=== PATIENT | female | born 1940 | race Caucasian/White ===

== ENCOUNTER → 2019-12-30 | Day surgery (SDC) | payer OTHER ==
--- NOTE | 2019-12-30 12:11 | RAD REPORT ---
EXAM DESCRIPTION: Ultrasound-guided vacuum assisted breast core biopsy CLINICAL HISTORY: Breast mass N63.0 COMPARISON: BREAST/AXILLA, LIMITED dated 10/31/2018 FINDINGS: Informed consent was obtained and time-out was performed. The patient's left breast was prepped and draped in the usual sterile fashion. 1% lidocaine was used for local anesthetic purposes. Utilizing aseptic technique and ultrasound guidance, a 12 gauge vacuum assisted core biopsy device wa s used to obtain 2 core specimens through the mass of interest. A post biopsy clip was then placed. All collected material was sent for cytology. Patient tolerated procedure well. IMPRESSION: Successful ultrasound guided vacuum assisted left breast mass biopsy.
--- OUTSIDE RECORDS SUMMARY | 2019-12-30 12:58 | XMS REPORT | Clinical Summary ---
:1940 Author Organization [facility] Address [address] [place] [address] Care Team Providers Name Role Phone Cooper Walter MD Primary Care Provider Allergies Active Allergy Reactions Severity Noted Date Comments Pioglitazone Hives 06/29/2016 Nitrofurantoin Macrocrystal Anaphylaxis High 06/29/2016 Prednisone Other (See Comments) 06/29/2016 Tramadol Swelling 06/29/2016 Medications Medication Sig Dispensed Refills Start End Date Status Date umeclidinium-dion Inhale. 0 Ac tive nterol 62.5-25 mcg/actuation blister with device atorvastatin Take 20 mg by 0 Act jono (LIPITOR) 20 MG mouth nightly. tablet INSULIN Inject under the 0 Act jono SUBCUTANEOUS skin PUMP, HUMALOG, continuously. 100 UNITS/ML INSULIN PUMP INFUSION (HumaLOG) lisinopril Take 2.5 mg by 0 Acti ve (PRINIVIL,ZESTRIL mouth daily. ) 2.5 mg tablet amLODIPine Take 5 mg by 0 Active (NORVASC) 5 mg mouth daily. tablet furosemide Take 40 mg by 0 Activ e (LASIX) 40 mg mouth daily. tablet allopurinol Take 100 mg by 0 Act jono (ZYLOPRIM) 100 MG mouth daily. tablet rivaroxaban Take 15 mg by 0 Acti ve (XARELTO) 15 mg mouth. tablet cholecalciferol, Take 2,000 Units 0 Active vitamin D3, by mouth daily. (VITAMIN D3) 2,000 unit capsule capsule MUCINEX 600 mg TAKE 1 TABLET BY 60 tablet 0 Active tablet extended MOUTH TWICE DAILY 8 release 12hr albuterol sulfate Inhale 180 mcg 1 each 3 Active (PROAIR every 4 (four) 8 RESPICLICK) 90 hours. mcg/actuation aerosol powdr breath activated alendronate TK 1 T PO ONCE A 0 A ctive (FOSAMAX) 70 MG WEEK. 9 tablet metoprolol TK 1 T PO D 3 Active succinate XL 9 (TOPROL-XL) 25 mg 24 hr tablet ipratropium-albut Take 3 mL by 60 mL 3 Active nevaeh (DUO-NEB) nebulization 4 9 0.5-2.5 mg/3 mL (four) times a nebulizer day. fluticasone USE 1 SPRAY IN 48 mL 1 Act jono propionate EACH NOSTRIL 9 (FLONASE) 50 TWICE DAILY mcg/actuation nasal spray ipratropium-albut Take 3 mL by 0 02/06/20 Discontinued nevaeh (DUO-NEB) nebulization 4 19 (Reorder) 0.5-2.5 mg/mL (four) times a nebulizer day. fluticasone 2 sprays by Each 0 02/06/20 D iscontinued (FLONASE) 50 Nare route daily. 19 (Reorder) mcg/actuation nasal spray fluticasone 1 spray (50 mcg 15.8 mL 1 02/06/20 Di scontinued propionate total) by Each 9 19 (Reo rder) (FLONASE) 50 Nare route 2 mcg/actuation (two) times a nasal spray day. guaiFENesin Take 10 mL (200 120 mL 0 06/20/20 Ex pired (ROBITUSSIN) 100 mg total) by 9 19 mg/5 mL syrup mouth 3 (three) times a day as needed for cough for up to 30 days. albuterol (ProAir Inhale 2 puffs 18 g 0 0 HFA) 90 every 6 (six) 0 20 mcg/actuation hours as needed inhaler for wheezing for up to 30 days. Active Problems Problem Noted Date Tobacco abuse 05/21/2019 Intermittent asthma 06/06/2017 COPD (chronic obstructive pulmonary disease) with acut e bronchitis 06/06/2017 SASCHA (obstructive sleep apnea) 06/06/2017 Dyspnea 06/06/2017 CHF (congestive heart failure) 02/12/2017 Diastolic congestive heart failure 02/12/2017 Essential hypertension 02/12/2017 Type 2 diabetes mellitus 02/12/2017 Gout 02/12/2017 Encounters Date Type Specialty Care Team Description 11/26/2019 Telemedicine Pulmonology Ashly Calhoun MD SASCHA (ob structive sleep apnea) (Primary Dx) 11/26/2019 Travel 05/21/2019 Office Visit Pulmonology Ashly Calhoun MD COPD (c hronic obstructive pulmonary disease) with acute bronchitis (HCC) (Primary Dx); Tobacco abuse 02/05/2019 Office Visit Pulmonology Ashly Calhoun MD SASCHA (ob structive sleep apnea) (Primary Dx); COPD (chronic o bstructive pulmonary disease) with acute bronchitis (HCC) 02/05/2019 Refill Pulmonology Ashly Calhoun MD after 12/29/2018 Family History Medical History Relation Name Comments Heart attack Father Prostate cancer Father Heart disease Mother Hypertension Mother Relation Name Status Comments Father Mother Social History Tobacco Use Types Packs/Day Years Used Date Former Smoker Smokeless Tobacco: Former User Alcohol Use Drinks/Week oz/Week Comments No Sex Assigned at Date Recorded Not on file Job Start Date Occupation Industry Not on file Not on file Not on file Travel History Travel Start Travel End No recent travel history available. Last Filed Vital Signs Vital Sign Reading Time Taken Comments Blood Pressure 128/74 05/21/2019 1:35 PM [employer] Pulse 55 05/21/2019 1:35 PM [employer] Temperature 36.6 C (97.8 F) 05/21/2019 1:35 PM [employer] Respiratory Rate 14 05/21/2019 1:35 PM [employer] Oxygen Saturation 98% 05/21/2019 1:35 PM [employer] Inhaled Oxygen Concentration - - Weight 123 kg (272 lb) 05/21/2019 1:35 PM [employer] Height 167.6 cm (5' 6") 02/05/2019 1:30 PM CDT Body Mass Index 43.9 02/05/2019 1:30 PM CDT Plan of Treatment Health Maintenance Due Date Last Done Comments DIABETIC RETINAL EYE EXAM 1940 DIABETIC FOOT EXAM 1950 URINE MICROALBUMIN 1952 SHINGLES VACCINES (#1) 1992 65+ PNEUMOCOCCAL VACCINE (1 of 2 - PCV13) 2007 INFLUENZA VACCINE 01/25/2020 Results Not on fileafter 12/29/2018 Insurance Payer Benefit Plan / Subscriber ID Effective Dates Phone Addre ss Type Group HUMANA MEDICARE HU[employer]NA MEDICARE xxxxxxxxx 2016-Present PPO PPO/PFFS/ERS MCR Advance Directives For more information, please contact: [phone] Type Date Recorded 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
--- OUTSIDE RECORDS SUMMARY | 2019-12-30 13:02 | XMS REPORT | Continuity of Care Document ---
:1940 Author Organization [employer] Care Team Providers Name Role Phone [employer] Unavailable Un available Problems Problem Status Onset Classification Date Comments Sourc e Date Reported SOB, WEAK Active Sugar 019 [place] Urinary tract 10/18/2017 Liu gar infection, site not 018 [place] specified AFIB/I48.2; HTN, DM Active 017 [facility] PROBABLE PE Active [address] Disorder of Active Problem 06/03/2019 Data Medi ricky refraction AND/OR 014 migrated Gr oup, accommodation from [facility] (disorder) [facility] on 11/22/14. [place],[facility], [facility] [place] Pseudophakia Active Problem 06/03/2019 Data Med ical (disorder) 014 migrated Group, from [facility] [place] on 11/22/14. [place],[facility] [place] Long-term drug Active Problem 06/03/2019 Data [facility] edical therapy (procedure) 012 migrated Group, from [facility] [place] on 11/22/14. [facility] [place] Diabetic Active Problem 06/03/2019 Data Medica l complication 011 migrated Group,[facility] (disorder) from [facility] [place] on 11/22/14. [place],[facility] [place] Acute exacerbation Resolved Problem 06/03/2019 Medical of chronic Group, obstructive airways [place] disease (disorder) edical [facility], [facility] [place] Atrial fibrillation Active Problem 06/03/2019 Medical (disorder) Group,[facility] [place] Acute renal failure Resolved Problem 06/03/2019 STAGE #3 Medical syndrome (disorder) Group,[facility], [facility] [place] Benign essential Active Problem 06/03/2019 Data Medical hypertension migrated Group,[facility] (disorder) from [facility] [place] on 11/22/14. [place],[facility], [facility] [place] Diabetes mellitus Resolved Problem 06/03/2019 [facility] Medical (disorder) Group,[facility], [facility] [place] Hyperlipidemia Active Problem 06/03/2019 Data [facility] edical (disorder) migrated Group, from [facility] [place] on 11/22/14. [place],[facility], [facility] [place] Asthma (disorder) Resolved Problem 06/03/2019 [facility] Medical Group,[facility], [facility] [place] Hypertensive Resolved Problem 06/03/2019 Med ical disorder, systemic Carla bullock, arterial (disorder) [facility], [facility] [place] Myocardial Resolved Problem 06/03/2019 TWO YEARS Medic al infarction AGO, TWO Group, (disorder) STENT [facility], [facility] [place] Morbid obesity Active Problem 06/03/2019 [facility] edical (disorder) Group, [place] Nuclear cataract Active Problem 06/03/2019 Medical (disorder) Group,[facility], [facility] [place] Coronary Active Problem 06/03/2019 Medica l arteriosclerosis Mike up, (disorder) Sugar Daniel d Diastolic heart Active Problem 06/03/2019 Medical failure (disorder) Carla bullock, [place] Patient encounter Active Problem 06/03/2019 [facility] Medical status (finding) Mike up CHRONIC ATRIAL Active FIBRILLATION [facility] Medications Medication Details Route Status Patient Ordering Order Source Instructions Provider Date rivaroxaban 15 MG 15 mg = 1 tab, Active 02/07/ Medical Oral Tablet PO, Daily, # 90 2019 Grou p [Xarelto] tab, 3 Refill(s), Pharmacy: [id number] levothyroxine 50 50 microgram = Active 01/21/ Sugar mcg (0.05 mg) 1 tab, PO, 2018 [facility] oral tablet Daily, 0 Refill(s) Lisinopril Notes: (Same Inactive 01/21/ [place] as: Prinivil, 2019 [facility] Zestril) Allopurinol Notes: (Same Inactive 01/21/ Sug ar as: Zyloprim) 2018 [facility] Insulin Glargine Notes: (Same Inactive 01/21/ M H Sugar 100 UNT/ML as: Lantus) Do 2019 Land Injectable not hold Solution [Lantus] insulin without contacting prescriber WASTE: F/P - Black; E - Municipal Trash Bin "single patient use only" Stable for 28 days at room temperature Expires in days from D ate Insulin Lispro Notes: (Same Inactive Sugar as: Humalog) 2019 Land Roll in palms of hands gently; Do not shake vigorously. WASTE: F/P - Black; E - Municipal Trash Bin Stable for 28 days at room temperature. Expires in days from D ate Dextrose 50% 25 gm, 50 mL, Inactive S ugar Syringe Route: IVP, 2019 [place] Drug Form: INJ, Dosing Weight 125.455, kg, PRN, PRN Blood Glucose Results, Start date: 01/21/19 0:30:00 CDT, 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 day, Stop date: 02/20/19 0:29:00 CDT, 0 Glucagon 1 mg, Route: Inactive Sugar IM, Drug form: 2019 Land PDR/INJ, PRN, Dosing Weight 125.455, kg, PRN Blood Glucose Results, Start date: 01/21/19 0:30:00 CDT, 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 day, Stop date: 02/20/19 0:29:00 CDT, 0 Insulin Lispro Notes: (Same Inactive Sugar as: Humalog) 2019 [place] Roll in palms of hands gently; Do not shake vigorously. WASTE: F/P - Black; E - Municipal Trash Bin Stable for 28 days at room temperature. Expires in days from D ate atorvastatin Notes: (Same No Longer S ugar As: Lipitor) Active 2019 [place] Xarelto Notes: (Same No Longer Sugar as: Xarelto) Active 2019 [place] Administer with food Amlodipine Notes: (Same No Longer Sug ar as: Norvasc) Active 2019 [place] Aspirin Notes: Take No Longer [place] with food. Active 2019 [place] Saline Flush 0.9% Notes: (Same No Longer Sugar as: BD Active 2018 [place] Posiflush) Protonix Notes: Tablet No Longer [place] should not be Active 2018 [place] chewed or crushed. (Same as: Protonix) Ipratropium Notes: SEE RT No Longer S ugar Irvona 0.2 MG/ML DOCUMENTATION Active 2018 [place] Inhalant Solution (Same as:Atrovent) Synthroid Notes: Take 1 No Longer Sug ar hour before or Active 2018 Land 2 hours after meal; Enteral feeds may interefere with the absorption of this medication.(Fracisco e as:Levothroid, Synthroid) normal saline 500 mL, Rate: Inactive Sugar 0.9% IV 500 mL 50 ml/hr, 2018 [place] Infuse over: 10 hr, Route: IV, Dosing Weight 125.455 kg, Total Volume: 500, Start date: 01/20/19 5:12:00 CDT, Duration: 1 doses or times, Stop date: 01/20/19 15:11:00 CDT, 2.46, m2, 0 Nicotine Notes: (Same No Longer Sugar as: Habitrol) Active 2018 Land "Remove old patch before application of new patch" WASTE: F/P - P Waste Black; E - P Waste Black Tylenol Notes: Do not No Longer Sugar exceed 4 Active 2018 [place] gm/day. (Same as: Tylenol) Aspirin 81 mg, PO, Active Sugar Daily, 0 2018 Land Refill(s) allopurinol 100 100 mg = 1 tab, Active Sugar mg oral tablet PO, Daily, 0 2018 [place] Refill(s) Levothyroxine 50 microgram = Active Sugar Sodium 0.05 MG 1 tab, PO, 2019 [place] Oral Tablet Daily, 0 [Synthroid] Refill(s) Ventolin HFA 90 2 puff, Active Sugar mcg/inh INHALATION, 2018 [place] inhalation PRN, 0 aerosol with Refill(s) adapter Anoro Ellipta 1 puff, Active Sugar 62.5 mcg-25 mcg INHALER, Daily, 2018 [place] inhalation powder # 1 ea, 3 Refill(s) Insulin Lispro Notes: (Same Inactive Sugar as: Humalog) 2019 [place] Roll in palms of hands gently; Do not shake vigorously. WASTE: F/P - Black; E - Municipal Trash Bin Stable for 28 days at room temperature. Expires in days from D ate Dextrose 50% 25 gm, 50 mL, No Longer [place] Syringe Route: IVP, Active 2018 [facility] Drug Form: INJ, Dosing Weight 124.8, kg, PRN, PRN Blood Glucose Results, Start date: 01/20/19 2:30:00 CDT, 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 day, Stop date: 02/19/19 2:29:00 CDT, 0 Glucagon 1 mg, Route: No Longer Sugar IM, Drug form: Active 2018 [place] PDR/INJ, PRN, Dosing Weight 124.8, kg, PRN Blood Glucose Results, Start date: 01/20/19 2:30:00 CDT, 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 day, Stop date: 02/19/19 2:29:00 CDT, 0 Saline Flush 0.9% Notes: (Same No Longer [place] as: BD Active 2018 [place] Posiflush) Nitroglycerin Notes: (Same No Longer Sugar as:Nitroquick, Active 2018 [place] Nitrostat) "Do Not Crush" Sublingual tablet Aspirin 325 MG Notes: Take Inactive S ugar Oral Tablet with food. 2018 [facility] rivaroxaban 15 MG 15 mg = 1 tab, Active Medical Oral Tablet PO, QPM, # 90 2019 Group [Xarelto] tab, 3 Refill(s), [facility] [id number] lisinopril 5 mg 5 mg = 1 tab, Active Medical oral tablet PO, Daily, # 90 2019 Grou p tab, 3 Refill(s), [facility]: [facility] [id number] atorvastatin 20 20 mg = 1 tab, Active 11/23/ H Medical mg oral tablet PO, QPM, # 90 2019 Mike up tab, 3 Refill(s), [facility] [id number] amLODIPine 5 mg 5 mg = 1 tab, Active Medical oral tablet PO, Daily, # 90 2019 Grou p tab, 3 Refill(s), Pharmacy: [facility] [id number] rivaroxaban 15 MG 15 mg = 1 tab, Inactive Medical Oral Tablet PO, QPM, 0 2019 Group [Xarelto] Refill(s) lisinopril 5 mg 5 mg = 1 tab, Inactive 11/23/ M H Medical oral tablet PO, Daily, # 90 2019 Grou p tab, 3 Refill(s) metoprolol 25 mg 25 mg = 1 tab, Active Medical oral tablet, PO, Daily, # 90 2019 Mike up extended release tab, 3 Refill(s), Pharmacy: [facility] [id number] Alendronic acid 70 mg = 1 tab, Active 11/23/ H Medical 70 MG Oral Tablet PO, 0 Refill(s) 2019 Group Phenazopyridine 100 mg = 1 tab, No Longer Sugar hydrochloride 100 PO, TID, PRN Active 2018 L and MG Oral Tablet Dysuria, X 2 [Pyridium] day, # 6 tab, 0 Refill(s) Cephalexin 500 MG 500 mg = 1 cap, Active Sugar Oral Capsule PO, QID, X 10 2018 Land [Keflex] day, # 40 cap, 0 Refill(s) Acetaminophen 325 1 tab, Route: Inactive Sugar MG / Hydrocodone PO, Drug Form: 2018 Land Bitartrate 5 MG TAB, Dosing Oral Tablet Weight 124.091, [Hyndman 5/325] kg, ONCE, STAT, Start date: 10/15/17 9:13:00 CDT, Stop date: 10/15/17 9:13:00 CDT Pyridium Notes: Give Inactive Sugar with meals. 2018 Land (Same as: Pyridium) Furosemide 40 MG 40 mg = 1 tab, Active Medical Oral Tablet PO, BID, # 180 2018 Group tab, 3 Refill(s), Pharmacy: [facility] [id number] Levothyroxine 25 microgram = Active Medical Sodium 0.025 MG 1 tab, PO, 2017 Group Oral Tablet Daily, # 90 [Synthroid] tab, 3 Refill(s), Pharmacy: [facility] [id number] Levothyroxine 25 microgram = Inactive Medical Sodium 0.025 MG 1 tab, PO, 2017 Group Oral Tablet Daily, 0 [Synthroid] Refill(s) Ipratropium 500 microgram = Active edical Irvona 0.2 MG/ML 2.5 mL, NEB, 2017 G roup Inhalant Solution QID, 0 Refill(s) metoprolol 50 mg = 1 tab, Inactive Me dical tartrate 50 mg PO, BID, 0 2016 Group oral tablet Refill(s) amLODIPine 5 mg 5 mg = 1 tab, Active Medical oral tablet PO, Daily, 0 2016 Group Refill(s) lisinopril 2.5 mg 2.5 mg = 1 tab, Active Medical oral tablet PO, Daily, 0 2016 Group Refill(s) fluticasone INHALATION, Active Medic al furoate Q24H, 0 2016 Group Refill(s) 24 HR Metoprolol Notes: (Same No Longer Tartrate 25 MG as: Toprol XL) Active 2016 [facility] Extended Release Do Not Crush Tablet [Toprol] Magnesium Oxide Notes: (Same No Longer H as: Mag-Ox 400) Active 2016 [facility] Magnesium oxide [id number] elemental magnesium Dose=____mg magnesium oxide (___mg elemental magnesium) Humalog Route: SUB-Q, No Longer Daily, Dosing Active 2016 [facility] Weight 117.841, kg, Start date: 09/16/16 9:00:00 CDT, 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 day, Stop date: 10/15/16 9:00:00 CDT Vitamin D3 2000 Notes: Same as No Longer intl units oral : Vitamin D3 Active 2016 [place] [facility] tablet Amiodarone Notes: (Same No Longer as: Cordarone) Active 2016 [facility] Allopurinol Notes: (Same No Longer as: Zyloprim) Active 2016 [facility] Xarelto Notes: (Same Inactive as: Xarelto) 2016 [facility] Administer with food Furosemide 40 MG Notes: (Same Inactive H Oral Tablet as: Lasix) October 2016 [place] cause GI upset. Give with food or milk. atorvastatin Notes: (Same Inactive As: Lipitor) 2016 [facility] AMIODarone 300 mg 300 mg, PO, Active oral tablet Daily, [address] [facility] Refill(s) AMIODarone 200 mg 200 mg = 1 tab, Inactive 09/15 oral tablet PO, BID 2016 [facility] Furosemide 40 MG 40 mg = 1 tab, Active Oral Tablet PO, BID 2016 [facility] magnesium oxide 500 mg = 1 tab, Active 500 mg oral PO, Daily 2016 [facility] tablet metoprolol 25 mg 25 mg = 1 tab, Active oral tablet, PO, Daily 2016 [facility] extended release Humalog 102UNITS, Active SUB-Q, Daily, 2016 [facility] INSULIN PUMP DORINA-FLOW SPRAY DORINA-FLOW SPRAY, Active 1 spray, NASAL, 2016 [facility] t Daily atorvastatin 20 20 mg = 1 tab, Active H mg oral tablet PO, QPM 2016 [facility] allopurinol 300 300 mg = 1 tab, Active mg oral tablet PO, Daily 2016 [facility] Probiotic Formula 1 cap, PO, Inactive oral capsule Daily, [address] [facility] Refill(s) Vitamin D3 2000 2,000 IntlUnit Active H intl units oral = 1 tab, PO, 2016 [place] [facility] tablet Daily [place]-3 oral 1 tab, PO, BID Active capsule 2016 [facility] Benadryl Notes: (Same Inactive as: Benadryl) 2016 [facility] Valium Notes: (Same Inactive as: Valium) 2016 [facility] sodium chloride 1,000 mL, Rate: Inactive 0.45% 1000 ml INJ 100 ml/hr, 2016 [place] 1,000 mL Infuse over: 10 hr, Route: IV, Dosing Weight 123.409 kg, Total Volume: 1,000, Start date: 09/15/16 7:23:00 CDT, 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 day, Stop date: 10/15/16 7:22:00 CDT Lasix 40 mg, Route: No Longer [place] IV, Daily, Active 2016 Medical Dosing Weight Center 123.409, kg, Start date: 05/24/16 9:00:00 ANIMAL TECH, 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 day, Stop date: 06/22/16 9:00:00 ANIMAL TECH albuterol Notes: Inactive [employer] Albuterol 90 2016 Medical microgram/inh Center 8gm HFA WASTE: Aerosol - Return to Pharmacy Same as: Ventolin, Proventil 200 ACTUAT Notes: Inactive [employer] Albuterol 0.09 Albuterol 90 2016 Medi ricky MG/ACTUAT Metered microgram/inh Center Dose Inhaler 8gm HFA WASTE: [ProAir HFA] Aerosol - Return to Pharmacy Same as: Ventolin, Proventil 200 ACTUAT 2 puff, Active [employer] Albuterol 0.09 INHALER, Q6H, 2016 Med ical MG/ACTUAT Metered PRN for Center Dose Inhaler wheezing, # 18 [ProAir HFA] gm, 0 Refill(s) Furosemide 40 MG 40 mg = 1 tab, Active [employer] Oral Tablet PO, Daily, # 30 2016 Medi ricky [Lasix] tab, 0 Center Refill(s) rivaroxaban 20 MG 20 mg = 1 tab, Active [employer] Oral Tablet PO, QPM, # 30 2016 Medica l [Xarelto] tab, 0 Center Refill(s) Lasix Notes: (Same Inactive [employer] as: Lasix) 2016 Medical MEDICATION Center WASTE Product Size: 40 mg Product Wasted: ___ mg Lisinopril Notes: (Same Inactive [facility] as: Prinivil, 2016 [facility] Zestril) Center Plavix Notes: (Same Inactive 05/23[facility] As: Plavix) 2016 Medical [place] Aspirin Notes: Do not Inactive [employer] crush or chew. 2016 Medical (Same As: [place] Ecotrin) metoprolol Notes: (Same Inactive [facility] extended release as: Toprol XL) 2016 [facility] May split tab, Center but do not crush. atorvastatin Notes: Same as No Longer [employer] Lipitor Active 2016 [facility] Hydralazine Notes: (Same No Longer [facility] [place] as: Apresoline) Active 2016 Medical Push over 5 Center minutes potassium Notes: (Same Inactive [place] phosphate-sodium as: Phos-NaK) 2015 edical phosphate 250 Each 1.5 gm pkt Ce nter mg-280 mg-160 mg has 250mg oral powder for phosphorous. reconstitution Mix w/2.5oz water and stir. heparin sodium, Notes: porcine No Longer [place] porcine 2500 heparin Active 2015 Medical UNT/ML Injectable Center Solution Insulin, Aspart, Notes: Roll in No Longer [place] Human palms of hands Active 2016 Medical gently; Do not Center shake vigorously. (Same as: NovoLOG) "single patient use only" WASTE: F/P - Black; E - Municipal Trash Bin Stable for 28 days at room temperature. Expires in days from D ate Dextrose 50% 25 gm, 50 mL, No Longer [place] Syringe Route: IVP, Active 2015 Medical Drug Form: INJ, Center Dosing Weight 123.409, kg, PRN, PRN Blood Glucose Results, Start date: 05/22/16 15:45:00 ANIMAL TECH, 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 day, Stop date: 06/21/16 15:44:00 ANIMAL TECH Glucagon 1 mg, Route: No Longer [place] IM, Drug form: Active 2015 Medical PDR/INJ, PRN, Center Dosing Weight 123.409, kg, PRN Blood Glucose Results, Start date: 05/22/16 15:45:00 ANIMAL TECH, 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 day, Stop date: 06/21/16 15:44:00 ANIMAL TECH Albuterol 0.833 Notes: (Same No Longer [place] MG/ML / as: Duoneb) Active 2015 Medical Ipratropium [place] Irvona 0.167 MG/ML Inhalant Solution [DuoNeb] Insulin Pen Novolog No Longer [place] Active 2015 Medical Misc/Other Center Metformin 500 mg = 1 tab, Active [place] as hydrochloride 500 PO, Daily 2016 Medi ricky MG Oral Tablet Center metoprolol 50 mg 50 mg = 1 tab, Active [place] oral tablet, PO, Daily 2016 Medical extended release Center Aspirin 81 MG 81 mg = 1 tab, No Longer [place] Chewable Tablet PO, Daily Active [facility] allopurinol 100 100 mg = 1 tab, Active [place] mg oral tablet PO, Daily 2015 [facility] MAGNESIUM 400, PO, Daily Active [facility] [place] [facility] GLUCONATE 2015 [facility] non-formulary PO, Daily, Active [place] OMEGA [address]- [address] [place] [address] [id number] [place] OIL (OMEGA-3 FISH OIL) 1000 MG (120 -180 MG)CAP, Refill(s) 0 lisinopril 5 mg 5 mg = 1 tab, Active [place] oral tablet PO, Daily 2015 [facility] Furosemide 20 MG 20 mg = 1 tab, No Longer [place] Oral Tablet PO, Daily Active [address] [place] [address] cholecalciferol 2,000 IntlUnit Active [place] 2000 intl units = 1 cap, PO, 2015 Med ical oral capsule Daily Center atorvastatin 20 20 mg = 1 tab, Active [facility] mg oral tablet PO, Daily 2015 [facility] Colchicine 0.6 MG 0.6 mg = 1 cap, Active [place] Oral Capsule PO, Daily 2015 [facility] Allergies, Adverse Reactions, Alerts Substance Category Reaction Severity Reaction Status Date Comments S ource type Reported pioglitazone Assertion Drug Active Data MH <sup>2</sup> allergy 2 migrated Me dical from [facility] on 10/23/14. Originally documented as ACTOS. Hives pioglitazone Assertion Drug Active Data MH <sup>1</sup> allergy 2 migrated [place] [facility] 10/[facility]14. Originally documented as ACTOS. Hives predniSONE<s Assertion Drug Active Data up>1</sup> allergy 4 migrated Medi ricky from [facility] on 10/23/14. Originally documented as PREDNISONE. predniSONE<s Assertion Drug Active Data up>2</sup> allergy 4 migrated [place] [facility] on 10/23/14. Originally documented as PREDNISONE. predniSONE<s Assertion Drug Active Data [place] up>3</sup> allergy 4 migrated Medi ricky from [facility] on 10/23/14. Originally documented as PREDNISONE. Macrodantin Assertion Drug Active allergy Medical Group traMADol<sup Assertion Drug Active Data M H >3</sup> allergy migrated Medica l from [facility] on 10/23/14. Originally documented as TRAMADOL. nitrofuranto Assertion Drug Active Data M H [place] in<sup>1</liu allergy migrated Me dical p> from [facility] on 10/23/14. Originally documented as MACRODANTIN . traMADol<sup Assertion Drug Active Data M H [place] >4</sup> allergy migrated Medica l from [facility] on 10/23/14. Originally documented as TRAMADOL. Immunizations Immunization Date Given Site Status Last Comments Source Updated Hx influenza 03/26/2012 completed [facility] Result Med ical vaccine-unspecifi Comment: Moo manley, ed<sup>1</sup> 03-26-12. [place] Migrated from Medica l OBS ; Data Center, migrated from [facility] [place] on 07/28/2015. Land Hx pneumococcal 05/22/2001 completed [facility] Result Medical vaccine<sup>2</liu Comment: Moo manley, p> historical. [place] Migrated from Medica l OBS ; Data Center, migrated from [facility], [facility] [place] on 07/28/2015. [place] pneumococcal 02/19/2001 completed GE Result Med ical 23-valent Comment: Group, vaccine<sup>3</liu given. [place] p> Migrated from Medica l OBS ; Data Center, migrated from [facility], [facility] [place] on 07/28/2015. [facility] Results Order Name Results Value Reference Date Interpretation Comments Leila rce Range ELECTROLYT eGFR 20 01/21 Result Sugar Comment: The [facility] eGFR is calculated using the CKD-EPI formula. In most young, healthy individuals the eGFR will be >90 mL/min/1.73m2 . The eGFR declines with age. An eGFR of 60-89 may be normal in some populations, particularly the elderly, for whom the CKD-EPI formula has not been extensively validated. Use of the eGFR is not recommended in the following populations:< br/>
Breann viduals with unstable creatinine concentration s, including patients and those with serious co-morbid conditions.<b r/>
Patie nts with extremes in muscle mass or diet.

The data above are obtained from the National Kidney Disease Education Program (NKDEP) which additionally recommends that when the eGFR is used in patients with extremes of body mass index for purposes of drug dosing, the eGFR should be multiplied by the estimated BMI. HEMATOLOGY MCV 96.8 80.0 - 01/21 Sugar 98.0 Land HEMATOLOGY Hct 38.0 36.0 - 01/21 Sugar 48.0 [facility] HEMATOLOGY Hgb 12.4 12.0 - 01/21 Sugar 16.0 [facility] HEMATOLOGY MPV 8.9 7.4 - 10.4 01/21 [facility] HEMATOLOGY Platelet 211 133 - 450 01/21 [facility] HEMATOLOGY RDW 14.5 11.5 - 01/21 Sugar 14.5 [facility] HEMATOLOGY RBC 3.93 4.20 - 01/21 Sugar 5.40 [facility] HEMATOLOGY WBC 7.7 3.7 - 10.4 01/21 [facility] HEMATOLOGY MCHC 32.5 32.0 - 01/21 Sugar 36.0 [facility] HEMATOLOGY MCH 31.4 27.0 - 01/21 Sugar 31.0 Land HEMATOLOGY Basophils # 0.1 0.0 - 0.2 01/21 MH [place] Land HEMATOLOGY Eosinophils 0.3 0.0 - 0.5 01/21 [place] # /2018 Land HEMATOLOGY Monocytes # 0.4 0.0 - 0.8 01/21 [place] Land HEMATOLOGY Lymphocytes 1.7 1.0 - 5.5 01/21 [place] # /2018 Land HEMATOLOGY Basophils 0.8 0.0 - 1.0 01/21 MH Land HEMATOLOGY Neutrophils 5.2 1.5 - 8.1 01/21 [place] # /2018 Land HEMATOLOGY Eosinophils 4.3 0.0 - 4.0 01/21 [place] Land HEMATOLOGY Segs 67.6 45.0 - 01/21 Sugar 75.0 Land HEMATOLOGY Monocytes 5.6 2.0 - 12.0 01/21 Sugar Land HEMATOLOGY Lymphocytes 21.7 20.0 - 01/21 Sugar 40.0 /2018 Land ELECTROLYT Chloride Lvl 105 95 - 109 01/21 [place] Land ELECTROLYT CO2 22 24 - 32 01/21 Sugar ES Land ELECTROLYT AGAP 11.0 10.0 - 01/21 Sugar ES 20.0 /2018 Land ELECTROLYT Calcium Lvl 8.8 8.5 - 10.5 01/21 Sug ar Land ELECTROLYT Glucose Lvl 437 70 - 99 01/21 Result Sugar ES Comment: [facility] Critical Result(s) called to Sharon Soriano RN at 01/21/2019 11:39 by FN. Read back OK. ELECTROLYT Creatinine 2.32 0.50 - 01/21 Sugar ES Lvl 1.40 Land ELECTROLYT BUN 63 7 - 22 01/21 Sugar [place] ELECTROLYT Potassium 5.0 3.5 - 5.1 01/21 Sugar ES Lvl /2018 Land ELECTROLYT Sodium Lvl 133 135 - 145 01/21 Sugar ES Land URINE AND UA <=1.0 0.1 - 1.0 01/20 Sugar STOOL Urobilinogen mg/dL Land URINE AND UA Bacteria Occasional None Seen 01/20 Liu gar STOOL /HPF /HPF /2018 Land URINE AND UA Mucus Few /LPF None Seen 01/20 [place] /LPF /2018 [place] URINE AND UA Color Light Yellow Yellow 01/20 [place] *NA* /2018 [facility] (01/20/19 5:14 PM) URINE AND UA Spec Grav 1.012 <=1.030 01/20 [place] URINE AND UA pH 5.0 5.0 - 8.0 01/20 [place] URINE AND UA Turbidity Slight Clear 01/20 [place] *ABN* /2018 [facility] (01/20/19 5:14 PM) URINE AND UA Glucose 50 mg/dL Negative 01/20 [place] mg/dL /2018 [place] URINE AND UA Protein Negative Negative 01/20 [place] mg/dL mg/dL [place] URINE AND UA Ketones Negative Negative 01/20 [place] mg/dL mg/dL [place] URINE AND UA RBC 1 0 - 2 01/20 [place] URINE AND UA Blood Negative Negative 01/20 [place] (01/20/19 5:14 PM) /2018 [place] URINE AND UA Nitrite Negative Negative 01/20 [place] (01/20/19 5:14 PM) [place] URINE AND UA Leuk Est Negative Negative 01/20 [place] (01/20/19 5:14 PM) [place] URINE AND UA Sq Epi Few /LPF Few /LPF 01/20 [place] URINE AND UA WBC <1 0 - 5 01/20 [place] URINE AND UA Bili Negative Negative 01/20 [place] *NA* /2018 [place] (01/20/19 5:14 PM) CARDIAC Troponin-I <0.02 0.00 - 01/20 [place] ENZYMES 0.40 [place] CARDIAC Troponin-I <0.02 0.00 - 01/20 [place] 0.40 [place] LIPIDS VLDL 21 01/20 [place] LIPIDS Trig 103 <=149 01/20 [place] mg/dL [place] LIPIDS Chol 79 <=199 01/20 [place] mg/dL [place] LIPIDS HDL 40 >=61 mg/dL 01/20 [place] LIPIDS CHD Risk 1.98 3.90 - 01/20 [place] 5.80 /2018 [facility] LIPIDS LDL 18 <=99 mg/dL 01/20 [place] (Calculated) [place] CARDIAC Troponin-I <0.02 0.00 - 01/20 [place] ENZYMES 0.40 [facility] CARDIAC Total CK 77 12 - 191 01/20 [place] ENZ[place]ES [facility] CARDIAC CK MB 1.8 0.5 - 3.6 01/20 [place] ENZ[place]ES [facility] CARDIAC BNP 107 <=100 01/20 [place] ENZYMES pg/mL [facility] CARDIAC CK MB Index 2.3 0.0 - 2.5 01/20 [place] ENZ[place]ES [facility] CHEM PANEL eGFR 01/20 Comment: The [place] eGFR is calculated using the CKD-EPI formula. In most young, healthy individuals the eGFR will be >90 mL/min/1.73m2 . The eGFR declines with age. An eGFR of 60-89 may be normal in some populations, particularly the elderly, for whom the CKD-EPI formula has not been extensively validated. Use of the eGFR is not recommended in the following populations:< br/>
Breann viduals with unstable creatinine concentration s, including patients and those with serious co-morbid conditions.<b r/>
Patie nts with extremes in muscle mass or diet.

The data above are obtained from the National Kidney Disease Education Program (NKDEP) which additionally recommends that when the eGFR is used in patients with extremes of body mass index for purposes of drug dosing, the eGFR should be multiplied by the estimated BMI. CHEM PANEL CO2 22 24 - 32 01/20 [place] CHEM PANEL Albumin Lvl 3.9 3.5 - 5.0 01/20 [place] CHEM PANEL ALT 25 0 - 65 01/20 [place] CHEM PANEL Calcium Lvl 8.9 8.5 - 10.5 01/20 [place] CHEM PANEL Total 7.2 6.4 - 8.4 01/20 [place] CHEM PANEL Globulin 3.3 2.7 - 4.2 01/20 [place] CHEM PANEL A/G Ratio 1.2 0.7 - 1.6 01/20 [place] CHEM PANEL AST 21 0 - 37 01/20 [place] CHEM PANEL Alk Phos 137 39 - 136 01/20 [place] CHEM PANEL B/C Ratio 29 6 - 25 01/20 [place] CHEM PANEL Bili Total 0.3 0.2 - 1.3 01/20 [place] CHEM PANEL AGAP 12.1 10.0 - 01/20 [place] 20.0 [place] CHEM PANEL BUN 67 7 - 22 01/20 [place] CHEM PANEL Creatinine 2.34 0.50 - 01/20 [place] Lvl 1.40 /2018 [place] CHEM PANEL Chloride Lvl 109 95 - 109 01/20 [place] CHEM PANEL Sodium Lvl 139 135 - 145 01/20 [place] CHEM PANEL Potassium 4.1 3.5 - 5.1 01/20 [place] CHEM PANEL Glucose Lvl 189 70 - 99 01/20 [place] HEMATOLOGY PTT 38.0 22.9 - 01/20 [place] 35.8 /2018 [place] HEMATOLOGY INR 1.33 0.85 - 01/20 [place] 1.17 [place] HEMATOLOGY PT 16.2 12.0 - 01/20 [place] 14.7 [place] HEMATOLOGY D-Dimer 0.53 01/20 [place] /2018 [place] HEMATOLOGY MPV 8.6 7.4 - 10.4 01/20 [place] /2018 [place] HEMATOLOGY MCHC 32.9 32.0 - 01/20 [place] 36.0 /2018 [place] HEMATOLOGY RDW 14.7 11.5 - 01/20 [place] 14.5 /2018 [place] HEMATOLOGY RBC 3.79 4.20 - 01/20 [place] 5.40 /2018 [place] HEMATOLOGY WBC 10.9 3.7 - 10.4 01/20 [place] /2018 [place] HEMATOLOGY MCH 31.2 27.0 - 01/20 [place] 31.0 /2018 [place] HEMATOLOGY Hct 36.0 36.0 - 01/20 [place] 48.0 [place] HEMATOLOGY Platelet 228 133 - 450 01/20 [place] HEMATOLOGY Hgb 11.8 12.0 - 01/20 [place] 16.0 /2018 [place] HEMATOLOGY MCV 94.9 80.0 - 01/20 [place] 98.0 [place] HEMATOLOGY Eosinophils 0.4 0.0 - 0.5 01/20 [place] # /2018 [place] HEMATOLOGY Monocytes # 0.6 0.0 - 0.8 01/20 [place] /2018 [place] HEMATOLOGY Lymphocytes 2.4 1.0 - 5.5 01/20 [place] # /2018 [place] HEMATOLOGY Neutrophils 7.4 1.5 - 8.1 01/20 [place] # /2018 [place] HEMATOLOGY Lymphocytes 21.6 20.0 - 01/20 [place] 40.0 [place] HEMATOLOGY Segs 67.5 45.0 - 01/20 [place] 75.0 [place] HEMATOLOGY Basophils # 0.1 0.0 - 0.2 01/20 [place] /2019 [place] HEMATOLOGY Eosinophils 3.8 0.0 - 4.0 01/20 [place] /2018 [place] HEMATOLOGY Monocytes 5.9 2.0 - 12.0 01/20 [place] HEMATOLOGY Basophils 1.2 0.0 - 1.0 01/20 [place] URINE AND UA Leuk Est Large Negative 10/15 [place] *ABN* /2017 [place] (10/15/17 9:08 AM) URINE AND UA pH 5.0 5.0 - 8.0 10/15 [place] URINE AND UA WBC >182 0 - 5 10/15 [place] /2018 [place] URINE AND UA Sq Epi Occasional Few /LPF 10/15 [place] /LPF /2017 [place] URINE AND UA Bili Negative Negative 10/15 [place] *NA* [place] (10/15/17 9:08 AM) URINE AND UA Ketones Negative Negative 10/15 [place] mg/dL mg/dL [place] URINE AND UA Nitrite Negative Negative 10/15 [place] (10/15/17 9:08 AM) /2017 [place] URINE AND UA Blood Large Negative 10/15 [place] *ABN* /2017 [place] (10/15/17 9:08 AM) URINE AND UA Bacteria Moderate None Seen 10/15 [place] /HPF /HPF /2017 [place] URINE AND UA Mucus Few /LPF None Seen 10/15 [place] /LPF [place] URINE AND UA RBC 130 0 - 2 10/15 [place] URINE AND UA Color Light Yellow Yellow 10/15 [place] *NA* [facility] (10/15/17 9:08 AM) URINE AND UA Glucose Negative Negative 10/15 [place] mg/dL mg/dL [place] URINE AND UA Protein Negative Negative 10/15 [place] mg/dL mg/dL [place] URINE AND UA Turbidity Marked Clear 10/15 [place] *ABN* [facility] (10/15/17 9:08 AM) URINE AND UA Spec Grav 1.005 <=1.030 10/15 [place] URINE AND UA <=1.0 0.1 - 1.0 10/15 [place] Urobilinogen mg/dL [facility] CHEM PANEL eGFR 27 09/15 Result Comment: The [facility] eGFR is calculated using the CKD-EPI formula. In most young, healthy individuals the eGFR will be >90 mL/min/1.73m2 . The eGFR declines with age. An eGFR of 60-89 may be normal in some populations, particularly the elderly, for whom the CKD-EPI formula has not been extensively validated. Use of the eGFR is not recommended in the following populations:< br/>
Breann viduals with unstable creatinine concentration s, including patients and those with serious co-morbid conditions.<b r/>
Patie nts with extremes in muscle mass or diet.

The data above are obtained from the National Kidney Disease Education Program (NKDEP) which additionally recommends that when the eGFR is used in patients with extremes of body mass index for purposes of drug dosing, the eGFR should be multiplied by the estimated BMI. CHEM PANEL POC Ion Ca 1.15 1.05 - 09/[address] [facility] CHEM PANEL POC 12.9 12.0 - 09/[address] [facility] CHEM PANEL POC 38.0 36.0 - 09/[address] [facility] CHEM PANEL POC AGAP 17.0 10.0 - 09/[address] [facility] CHEM PANEL POC 1.8 0.5 - 1.4 09/[address] [facility] CHEM PANEL POC BUN 40 7 - 22 09/15 [facility] CHEM PANEL POC Glucose 215 70 - 99 09/15 [facility] CHEM PANEL POC 3.7 3.5 - 5.1 09/[address] [facility] CHEM PANEL POC Chloride 102 95 - 109 09/15 [facility] CHEM PANEL POC Carbon 26 24 - 32 09/[address] [facility] CHEM PANEL POC Sodium 140 135 - 145 09/15 [facility] CARDIAC Troponin-T <0.010 0.000 - 05/23 [employer] ENZYMES 0.100 [facility] SPECIAL Hgb A1C 7.9 <=5.6 % 05/23 [employer] CHEMISTRY /2015 [facility] CHEM PANEL Magnesium 2.3 1.8 - 2.4 05/22 [employer] Lvl /2015 [facility] CHEM PANEL Phosphorus 2.2 2.5 - 4.5 05/22 [facility] ELECTROLYT AGAP 11.9 10.0 - 05/22 [place] ES 20.0 [facility] ELECTROLYT Creatinine 1.34 0.50 - 05/22 [place] ES Lvl 1.40 /2015 [facility] ELECTROLYT Sodium Lvl 144 135 - 145 05/22 [employer] ES [facility] ELECTROLYT Glucose Lvl 132 70 - 99 05/22 [employer] ES /2015 [facility] ELECTROLYT BUN 22 7 - 22 05/22 [employer] ES /2015 [facility] ELECTROLYT CO2 26 24 - 32 05/22 [employer] ES [facility] ELECTROLYT Calcium Lvl 9.2 8.5 - 10.5 05/22 [place] [facility] ELECTROLYT Chloride Lvl 110 95 - 109 05[place] [facility] ELECTROLYT Potassium 3.9 3.5 - 5.1 05/22 [employer] ES Lvl /2015 [facility] ELECTROLYT eGFR 39 05/22 Result [employer] Comment: The [facility] eGFR is Center calculated using the CKD-EPI formula. In most young, healthy individuals the eGFR will be >90 mL/min/1.73m2 . The eGFR declines with age. An eGFR of 60-89 may be normal in some populations, particularly the elderly, for whom the CKD-EPI formula has not been extensively validated. Use of the eGFR is not recommended in the following populations:< br/>
Breann viduals with unstable creatinine concentration s, including patients and those with serious co-morbid conditions.<b r/>
Patie nts with extremes in muscle mass or diet.

The data above are obtained from the National Kidney Disease Education Program (NKDEP) which additionally recommends that when the eGFR is used in patients with extremes of body mass index for purposes of drug dosing, the eGFR should be multiplied by the estimated BMI. HEMATOLOGY Basophils 0.3 0.0 - 1.0 05/22 [facility] HEMATOLOGY Segs-Bands # 12.2 1.5 - 8.1 05/22 [facility] HEMATOLOGY Lymphocytes 0.5 1.0 - 5.5 05[place] [facility] HEMATOLOGY Monocytes # 0.1 0.0 - 0.8 05/22 [facility] HEMATOLOGY Segs 94.7 45.0 - 05/22 [place] 75.0 [facility] HEMATOLOGY Eosinophils 0.1 0.0 - 4.0 05/22 [facility] HEMATOLOGY Lymphocytes 4.2 20.0 - 05/22 [place] 40.0 [facility] HEMATOLOGY Monocytes 0.7 2.0 - 12.0 05/22 [facility] HEMATOLOGY PT 14.9 12.0 - 05/22 [place] 14.7 [facility] HEMATOLOGY INR 1.15 0.85 - 05/22 [place] 1.17 [facility] HEMATOLOGY PTT 34.4 22.9 - 05/22 [place] 35.8 [facility] HEMATOLOGY Platelet 237 133 - 450 05/22 [facility] HEMATOLOGY MPV 8.6 7.4 - 10.4 05/22 [facility] HEMATOLOGY RDW 14.4 11.5 - 05/22 [employer] 14.5 [facility] HEMATOLOGY MCHC 33.0 32.0 - 05/22 [employer] 36.0 [facility] HEMATOLOGY MCV 93.5 80.0 - 05/22 [employer] 98.0 /2015 [facility] HEMATOLOGY Hct 34.4 36.0 - 05/22 [employer] 48.0 /2015 [facility] HEMATOLOGY MCH 30.9 27.0 - 05/22 [employer] 31.0 /2015 [facility] HEMATOLOGY Hgb 11.4 12.0 - 05/22 [employer] 16.0 /2015 [facility] HEMATOLOGY RBC 3.68 4.20 - 05/22 [employer] 5.40 /2015 [facility] HEMATOLOGY WBC 12.9 3.7 - 10.4 05/22 [facility] Pathology Reports No Data Provided for This Section Diagnostic Reports Report Value Date Source Chest 1view DX Clinical History : , - chest pain 01/20/2019 [place] Exam : Portable AP view of the chest 01/20/2019 0 :07 CDT Comparisons : Portable AP view of the chest 04/27 Findings : The lungs are clear without focal consolidation or pleural effusion. The heart is normal in size. The mediastinal contours are normal in appearance. The thoracic spine is age appropriate. The shou lders are unremarkable. Limited evaluation of the upper abdomen demonstr ates no gross abnormalities. Impression: No acute cardiopulmonary disease (stable appeari ng chest). Lung EXAM: [place] Pulmonary Ventilation and Perfusion Alejandrina ging 05/22/2016 [employer] Medical ventilation/perfusio DATE: 05/22/2016 2:49 PM ANIMAL TECH Center n scan NM INDICATION: Dyspnea on exertion COMPARISON: Chest x-ray of same day TECHNIQUE: After inhalation of 22 mCi of Xe-133 gas, dynamic posterior images of the lungs were obtained. Subsequently, the patient was IV injected with 4.6 mCi of Tc-99m MAA and multiple static images of the lungs were obtained in different projecti ons. FINDINGS: There is symmetric normal ve ntilation to both lungs. There is no evidence of tracer retention to suggest air trapping. There is mild heterogeneous tracer distribution in both lungs. There are no segmental or subsegmental perfusion defects to suggest pulmonary embolism. IMPRESSION: Low probability for pulmonary embolism. Consultation Notes No Data Provided for This Section Discharge Summaries No Data Provided for This Section History and Physicals No Data Provided for This Section Vital Signs Vital Sign Value Date Comments Source Systolic (mm Hg) 146 05/31/2019 [facility] Diastolic (mm Hg) 70 05/31/2019 [facility] Heart Rate 60 05/31/2019 [facility] Height 167.64 cm 05/31/2019 [facility] Weight 125 05/31/2019 [facility] BMI Calculated 44.48 05/31/2019 [facility] Systolic (mm Hg) 144 01/21/2019 [place] Diastolic (mm Hg) 76 01/21/2019 [place] Temperature Oral (F) 97.5 F 01/21/2019 [place] Respitory Rate 18 01/21/2019 [place] Heart Rate 57 01/21/2019 [place] Systolic (mm Hg) 122 01/21/2019 [place] Diastolic (mm Hg) 78 01/21/2019 [place] and Respitory Rate 18 01/21/2019 [place] Heart Rate 60 01/21/2019 [place] Temperature Oral (F) 97.8 F 01/21/2019 [place] Systolic (mm Hg) 116 01/21/2019 [place] Diastolic (mm Hg) 54 01/21/2019 [place] and Respitory Rate 18 01/21/2019 [place] Heart Rate 53 01/21/2019 [place] Temperature Oral (F) 97.5 F 01/21/2019 [place] Weight 125.455 01/20/2019 [place] BMI Calculated 44.64 01/20/2019 [place] Height 167.64 cm 01/20/2019 [place] Weight 124.8 01/20/2019 [place] Weight 123.636 11/23/2018 [facility] BMI Calculated 43.99 11/23/2018 [facility] Height 167.64 cm 11/23/2018 [facility] Systolic (mm Hg) 150 11/23/[facility] Diastolic (mm Hg) 79 11/23/2018 [facility] Heart Rate 65 11/23/2018 [facility] Weight 123.182 09/05/2018 [facility] Height 167.64 cm 09/05/2018 [facility] BMI Calculated 43.83 09/05/2018 [facility] Systolic (mm Hg) 133 09/05/2018 [facility] Diastolic (mm Hg) 77 09/05/2018 [facility] Heart Rate 60 09/05/2018 [facility] Weight 123.182 11/17/2017 [facility] BMI Calculated 43.83 11/17/2017 [facility] Height 167.64 cm 11/17/2017 [facility] Heart Rate 66 11/17/2017 [facility] Systolic (mm Hg) 124 11/17/2017 [facility] Diastolic (mm Hg) 72 11/17/2017 [facility] Temperature Oral (F) 97.5 F 10/15/2017 [place] Respitory Rate 18 10/15/2017 [place] Heart Rate 63 10/15/2017 [place] Systolic (mm Hg) 130 10/15/2017 [place] Diastolic (mm Hg) 73 10/15/2017 [place] and BMI Calculated 44.16 10/15/2017 [place] Weight 124.091 10/15/2017 [place] Heart Rate 63 10/15/2017 [place] Respitory Rate 18 10/15/2017 [place] Systolic (mm Hg) 163 10/15/2017 [place] Diastolic (mm Hg) 64 10/15/2017 [place] Temperature Oral (F) 97.5 F 10/15/2017 [place] Height 167.64 cm 10/15/2017 [place] BMI Calculated 43.33 08/18/2017 [facility] Heart Rate 69 08/18/2017 [facility] Systolic (mm Hg) 155 08/18/2017 [facility] Diastolic (mm Hg) 80 08/18/2017 [facility] Weight 121.42 08/18/2017 [facility] Height 167.4 cm 08/18/2017 [facility] BMI Calculated 44.48 07/21/2017 [facility] Height 167.64 cm 07/21/2017 [facility] Weight 125 07/21/2017 [facility] Systolic (mm Hg) 130 07/21/2017 [facility] Diastolic (mm Hg) 70 07/21/2017 [facility] Heart Rate 52 07/21/2017 [facility] Weight 124.091 06/09/2017 [facility] BMI Calculated 44.16 06/09/2017 [facility] Height 167.64 cm 06/09/2017 [facility] Heart Rate 49 06/09/2017 [facility] Systolic (mm Hg) 148 06/09/2017 [facility] Diastolic (mm Hg) 72 06/09/2017 [facility] BMI Calculated 41.93 09/15/2016 [facility] Height 167.64 cm 09/15/2016 [facility] Weight 117.841 09/15/2016 [place] Systolic (mm Hg) 167 09/15/2016 [facility] Diastolic (mm Hg) 53 09/15/2016 [facility] Respitory Rate 17 09/15/2016 [facility] Heart Rate 57 09/15/2016 [facility] Systolic (mm Hg) 169 05/24/2016 [facility] dical Center Diastolic (mm Hg) 72 05/24/[facility] Resp[facility] Rate 18 05/24/2016 [facility] Heart Rate 50 05/24/2016 [facility] Temperature Oral (F) 97.2 F 05/24/2016 [facility] Center Systolic (mm Hg) 159 05/23/2016 [facility] dical Center Diastolic (mm Hg) 66 05/23/2016 [facility] Heart Rate 56 05/23/2016 [facility] Respitory Rate 18 05/23/2016 [facility] Temperature Oral (F) 97.8 F 05/23/2016 [facility] Center Respitory Rate 18 05/23/2016 [facility] Center Temperature Oral (F) 97.1 F 05/23/2016 [facility] Center Systolic (mm Hg) 139 05/23/2016 [facility] dical Center Diastolic (mm Hg) 92 05/23/2016 [facility] edical Center Heart Rate 64 05/23/2016 [facility] Weight 123.409 05/22/2016 [facility] BMI Calculated 43.91 05/22/2016 [facility]icky Center Height 167.64 cm 05/22/2016 [facility] [place] Encounters Location Location Encounter Encounter Reason Attending ADM ID Stat Source Details Type Number For Provider Date Date Visit Outpatient [id number] [facility] 12/03 [facility]AM /2016 [facility] Observation [id number] Moh[place] 05/22 05/24 [place] 2 Kwan /2015 [facility] Bedded [id number] [place] 09/15 09/15 [place] [facility] 0 [facility] /2016 [facility] Outpatient [id number] SARY 12/06 Activ e [facility] 1 [place] Outpatient [id number] FANCY GAP 06/09 Active [facility] 2 [place] Outpatient [id number] [place] 06/09 06/10 [facility] Cardiology 2 [facility] Medi ricky [facility] Outpatient [id number] ECHO VISIT 07/14 Acti ve [facility] [place] MG Ambulatory [id number] NURSE 07/14 07/14 [facility] Cardiology Pre-Reg 3 VISIT /2017 [facility] Outpatient [id number] ECHO VISIT 07/21 [facility] [place] Outpatient [id number] FANCY GAP 07/21 Active [facility] 5 [place] MG Outpatient [id number] NURSE 07/21 07/22 M H Cardiology 4 VISIT /2017 Medica l [facility] Outpatient [id number] [place] 07/21 07/22 Cardiology 5 Medi ricky [facility] Outpatient [id number] FANCY GAP 08/18 Active [facility] 6 [place] [facility] Outpatient [id number] [place] 08/18 08/19 Cardiology 6 Medi [facility]icky [facility] [id number] Rhett Eric 10/15 10/15 [facility] [place] Out[place] [id number] FANCY GAP 11/17 Active [facility] 7 [place] MG Outpatient [id number] [place] 11/17 11/18 Cardiology 7 Medi ricky [facility] Outpatient [id number] FANCY GAP 05/11 Active [facility] 8 [place] [facility] Ambulatory [id number] [place] 05/11 05/11 Cardiology Pre-Reg 8 Med ical [facility] Outpatient [id number] FANCY GAP 06/21 Active [facility] 9 [place] [facility] Ambulatory [id number] Aretha [place] 06/21 06/21 Cardiology Pre-Reg Medic al [facility] Group Outpatient [id number] FANCY GAP 09/05 Active [facility] 1 [place] [facility] Outpatient [id number] [place] 09/05 09/06 Cardiology 1 [facility] [place] [facility] Outpatient [id number] FANCY GAP 09/07 Active [facility] 0 [place] [facility] Ambulatory [id number] [place] 09/07 09/07 Cardiology Pre-Reg 0 [facility] Med ical [facility] Outpatient [id number] [place] 11/23 Active [facility] 2 [place] [facility] Outpatient [id number] [place] 11/23 11/24 Cardiology 2 Medi ricky [facility] Observation [id number] [place] 01/20 01/21 [place] 2 [place] [facility] Out[facility] [id number] [place] 05/31 Active [facility] 3 [place] [facility] Outpatient [id number] [place] 05/31 06/01 Cardiology 3 Medi ricky [facility] Outpatient [id number] [place] 09/26 Active [facility] 4 [place] Outpatient [id number] [facility] 01/16 Active [facility] 5 [place] Procedures Procedure Code Date Perfomer Comments Source Bladder operation [id number] [facility] ricky Group,[facility], [place] Cardioversion [id number] Medical Group,[facility], [place] Cataract surgery [id number] Medic al Group,[facility] [place], [place] Hysterectomy [id number] Medical Group,[facility] Knee [id number] bilateral in Medical arthroplasty<sup>1< 2006 and 2007 Gr oup, /sup> [facility], [place] Tonsillectomy [id number] Medical Group,[facility], [place] Breast biopsy and [id number] [facility] related procedures Group, [place] Miscellaneous [id number] heart stents x2 Med ical operations<sup>2</s Group , up> Michelle Gaines Skin [id number] skin removal. Medical operation<sup>3</liu Group , p> Michelle Gaines Assessment and Plan Assessment and Plan Date Source Extracted from:Title: Discharge Summary * 01/21/2019 Michelle Gaines Author: Franco Estrada DO Date: 01/21/19 Discharge Plan Discharge Summary Plan Discharge Status: stable. Discharge instructions given: to patient, to family member. Discharge disposition: discharge to home. Prescriptions: continue same medications. Diagnosis dyspnea exertion Atypical chest pain Essential hypertension Chronic atrial fibrillation on anticoagulation CKD stage IV Morbid obesity Sleep apnea Deconditioning CAD. Course Progressing as expected. Education and Follow-up Counseled: patient, regarding diagnosis, regarding treatment, regarding medications. Extracted from:Title: Clinical Document Author: Madisyn Powell MANAGER FINANCIAL REPORTING Date: 01/20/19 Paged by nurse with c/o patient having c ouple loose bowel movements with very strong smell. and Streaks of blood noted in the stool as well with no signs of hemorrhoids. Will check stool for C. difficile and occult blood. D/w Dr Tam. Extracted from:Title: Clinical Document Author: Madisyn Powell MANAGER FINANCIAL REPORTING Date: 01/20/19 History and Physical Code Status None Specified=FULL CODE Chief Compliant Shortness of breath on exertion HPI The patient is a 77-year-old female with medical history of CAD, HTN, A. fib, DM 2, COPD, HLD, and sleep apnea who presents to ED with complaint of shortness of breath onset for couple weeks. Patient r eports feeling tired, with mild generali zed weakness shortness of breath that has gotten worse to exertional dyspnea . Patient reports coming to ED because her "symptoms/sensations like last time she had heart attack". Patient denies c hest pain, diaphoresis, fever, diaphoresis, headache, change in bowel or bladder habit. ROS Constitutional Symptoms: no fever, no we ight loss, no weight gain, no fatigue, no malaise Eyes: no diplopia, no blurred vision, no redness, no discharge, no loss of vision Ears, Nose, Mouth, Throat: no dysphagia, no odynophagia, no otalgia, no deafness, no rhinorrhea Cardiovascular: no chest pain, + SOB, + WALKER, no orthopnea, no PND, exercise tolerated, no palpitations Respiratory: same as CVS, + mild cough9 resolved), no hemop tysis Gastrointestinal: no NVD, no BPR, no cornell k stool, no constipation, no abdominal pain Genitourinary: no dysuria, no frequency, no urgency, no nocturia, no incontinence Musculoskeletal: no arthralgia, no myalgia, no stiffness Integumentary: (skin and/or breast): no rash, no hives, no breast pain, no mass, no nipple dc Neurological: no weakness, no headache, no seizure, no dizziness, no tingling, no numbness Psychiatric: no anxiety, no depression, no insomnia Endocrine: no polyuria, no polydipsia, n o fatigue, no weight loss, no weight gain, no cold or heat intolerance, no palpitations Hematologic/Lymphatic: no bleeding, no b ruising, no edema, no lumps (axilla groin neck) Allergic/Immunologic: no rash, no allergies, no fever, + chi lls Problem List/PMHx Hypertension Diabetes Heart attack COPD exacerbation Asthma Acute renal failure Atrial fibrillation Procedure/PSHx Cataract surgery Hysterectomy Bladder operation Cataract surgery Tonsillectomy Knee arthroplasty Cardioversion Miscellaneous operations Breast biopsy and related procedures Skin operation Family Hx Father: Cancer, Prostate; Cancer, Skin; Heart disease; Parki nson disease Mother: CHF (congestive heart failure).. ; Osteoporosis - no treatment; Thyroid disease Brother: Diabetes. Sister: Breast cancer; Diabetes.; Heart disease Social Hx Alcohol Details: Never Tobacco Details: Use: Current every day smoker. Type: Cigarettes. Previous treatment: None. Ready to change: Yes. Household tobacco concerns: No. Tobacco smoke exposure: None. Did the Patient Smoke Cigare ttes Anytime During the Last 365 Days? Y es. Cessation Counseling Provided? Yes.; Comment(s): Quit since April 2016 ( smoked [employer] to [facility] ED) Substance Abuse Details: Use: None. Allergies Allergies: Macrodantin, traMADol, predniSONE, pioglitazone, NKDA Home Medications Home Medications (17) Active alendronate 70 mg oral tablet 70 mg = 1 tab, PO allopurinol 300 mg oral tablet 300 mg = 1 tab, PO, Daily AMIODarone 300 mg oral tablet 300 mg, PO, Daily amLODIPine 5 mg oral tablet 5 mg = 1 tab, PO, Daily atorvastatin 20 mg oral tablet 20 mg = 1 tab, PO, QPM fluticasone furoate , INHALATION, Q24H furosemide 40 mg oral tablet 40 mg = 1 tab, PO, BID Humalog 102UNITS, SUB-Q, Daily ipratropium 0.02% inhalation solution 500 microgram = 2.5 mL , NEB, QID lisinopril 5 mg oral tablet 5 mg = 1 tab, PO, Daily magnesium oxide 500 mg oral tablet 500 mg = 1 tab, PO, Daily metoprolol 25 mg oral tablet, extended release 25 mg = 1 tab , PO, Daily DORINA-FLOW SPRAY 1 spray, NASAL, Daily Lancaster-3 oral capsule 1 tab, PO, BID Synthroid 25 mcg (0.025 mg) oral tablet 25 microgram = 1 tab , PO, Daily Vitamin D3 2000 intl units oral tablet 2,000 IntlUnit = 1 ta b, PO, Daily Xarelto 15 mg oral tablet 15 mg = 1 tab, PO, QPM Physical Exam Vitals: Vitals Tmp(F) Pulse BP RR SpO2 FIO2 01/20 01:35 97.9 62 136/46 22 100 --- 01/19 23:43 97.7 58 146/54 24 99 --- 24 Hr Tmax: 97.9F (36.61c) at 01/20 01:3 5 Vital Signs are the last 5 in the past 48 hours. General Apperance: awake, alert, in no acute distress Head:Normocephalic atraumatic Eyes:Pupils equal/round/reactive to ligh t, no scleral icterus, extraocular movements intact, no erythema, no discharge, normal RR, alignment within normal limits Ears:Normal external shape, normal position Nose:Nares patent and no discharge Mouth:Moist mucous membranes, tongue nor mal, gingiva normal, palate normal, tonsils normal Neck:Supple, FROM, no thyromegaly, no masses, no cervical ly mphadenopathy Chest Wall:No retractions Lungs: Breath sounds diminished at the b ases bilaterally . No crackles no rales. Respiration even and unlabored. Heart: A. fib with controlled rate/bradycardia, no murmur Abdomen:soft, non-tender, non-distended, no HSM, and no mass Musculoskeletal:No obvious deformity. Moves all 4 extremitie s, gait not tested Lymph:No cervical, axillary or inguinal lymphadenopathy Extremities:Symmetric, no obvious defect , and no cyanosis/clubbi Trace edema. to BLE. 2+ pulses in DP/PT/radial bilaterally Neurologic:Alert/appropriate, normal str ength, normal tone, and CN II-XII grossly intact. Clear speech, aao x 3. Skin:No nevus no lesions no rash. No jaundice. Psych:Mood congruent affect, responds appropriately to quest ions. Pertinent Labs [facility]* A/G Ratio: 1.2 (01/20/19) AGAP: 12.1 mEq/L (01/20/19) Albumin Lvl: 3.9 g/dL (01/20/19) Alk Phos: 137 unit/L High (01/20/19) ALT: 25 unit/L (01/20/19) AST: 21 unit/L (01/20/19) B/C Ratio: 29 High (01/20/19) Basophils: 1.2 % High (01/20/19) Basophils #: 0.1 K/CMM (01/20/19) Bili Total: 0.3 mg/dL (01/20/19) BNP: 107 pg/mL High (01/20/19) BUN: 67 mg/dL High (01/20/19) Calcium Lvl: 8.9 mg/dL (01/20/19) Chloride Lvl: 109 mEq/L (01/20/19) CK MB: 1.8 ng/mL (01/20/19) CK MB Index: 2.3 (01/20/19) CO2: 22 mEq/L Low (01/20/19) Creatinine Lvl: 2.34 mg/dL High (01/20/19) D-Dimer: 0.53 ug/mL FEU (01/20/19) eGFR: 20 mL/min/1.73m2 (01/20/19) Eosinophils: 3.8 % (01/20/19) Eosinophils #: 0.4 K/CMM (01/20/19) Globulin: 3.3 g/dL (01/20/19) Glucose Lvl: 189 mg/dL High (01/20/19) Hct: 36 % (01/20/19) Hgb: 11.8 g/dL Low (01/20/19) INR: 1.33 High (01/20/19) Lymphocytes: 21.6 % (01/20/19) Lymphocytes #: 2.4 K/CMM (01/20/19) MCH: 31.2 pg High (01/20/19) MCHC: 32.9 g/dL (01/20/19) MCV: 94.9 fL (01/20/19) Monocytes: 5.9 % (01/20/19) Monocytes #: 0.6 K/CMM (01/20/19) MPV: 8.6 fL (01/20/19) Neutrophils #: 7.4 K/CMM (01/20/19) Platelet: 228 K/CMM (01/20/19) Potassium Lvl: 4.1 mEq/L (01/20/19) PT: 16.2 seconds High (01/20/19) PTT: 38 seconds High (01/20/19) RBC: 3.79 M/CMM Low (01/20/19) RDW: 14.7 % High (01/20/19) Segs: 67.5 % (01/20/19) Sodium Lvl: 139 mEq/L (01/20/19) Total CK: 77 unit/L (01/20/19) Total Protein: 7.2 g/dL (01/20/19) Troponin-I: <0.02 (01/20/19) WBC: 10.9 K/CMM High (01/20/19) Pertinent Imaging Imaging Studies (last 36 hours) Chest 1view DX 01/20/2019 00:43 Impression: No acute cardiopulmonary disease (stable appearing chest). Assessment and Plan 1. Acute exertional dyspnea rule out AC S -trend enzymes, echo, cardiology consult 2. Acute shortness of breath rule out P E versus new onset CHF, mildly elevated BNP-negative d-dimer, echo, cardiology 3. Acute kidney injury 2/2 chronic kidn ey disease with diuretic use-following nephro outpatient, gentle IV hydration 4. A. fib with rate control-on amiodarone following cardiol ogy Dr. Starr 5. Hypertensionresume home medication 6. Diabetes mellitussliding scale(insulin pump off) 7. Hyperlipidemiaresume home meds 8. GI/DVT prophylaxis 9. COPD//asthma stablenot an exacerbation-resume home meds 10. Obstructive sleep apnea-CPAP Addendum by Shania Tam MD on 01/20/2019 06:39 addendum: patient seen and examined, here with acute on chronic dyspnea, sob has been going on for last 6 months but geting more bothersome, very weak today and felt "sick". will obtain enzymes and echo, consult cardiology. trace leg edema. Extracted from:Title: Hospitalist History and Physical 05/24 [facility] Author: Prince Kalani Patel MD Date: 05/22/16 Assessment/Plan 75 YEAR OLD female with multiple co-mor bidities transferred from OSH for PE evaluation 1.Acute respiratory distress - Possibly due to undiagnosed CHF. CXR from OSH showed no active process -Other ddx include PE - PLAN: Supplemental O2. WILL get a 2-D Echo to r/oCHF exace rbation. 2.Blood D-dimer assay positive V/Q scan ordered Ordered: Admit/Condition NM Lung Scan V/Q 3.Acute chest pain - Resolving - Only one trop from OSH 0.028. EKG shows A-Fib - PLAN:will trend trop and EKG. Admit wi th Telemetry. Resumed ASA/Plavix/Statin. Also resumed Beta evelin andACE-i Ordered: Admit/Condition 4.Atrial fibrillation [id number] -PLAN: 2-D Echo.Will discussabout AC for CVA prevention once PE work up complete 5.Asthma Not in acute exacerbation - PLAN:DuoNeb PRN. 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 Will resume diet and start ISS Ordered: Admit/Condition Orders: Ambulation Up ad aislinn Basic Metabolic Panel CDM Admission Acute Care Direct Admit Complete Blood Count w/ Diff and Platelet Diet Adult Regular 2D Echo Magnesium Level Phosphorus Level Prothrombin Time and Partial Thromboplastin Time Resuscitation (Code) Status Telemetry (e.g. Acute Care Floor) Vital Signs Prophylaxis Heparin Subc Disposition D/C Home once above work up is complete Plan of Care No Data Provided for This Section Social History Social History Date Source Social History TypeResponse 01/20/2019 Michelle paredes Substance Abuse Use: None. Alcohol Never Smoking Status Current every day smoker; Type: Cigarett es; Previous treatment: None; Ready to change: Yes; Concerns about tobacco use in household: No; Exposure to Tobacco Smoke None; Cigarette Smoking Last 365 Days Yes; Reg Smoking Cessation Counseling Yes1 entered on: 01/20/19 1Quit since April 2016 Social History TypeResponse 01/20/2019 Vivian bullock Alcohol Never Substance Abuse Use: None. Smoking Status Current every day smoker; Type: Cigarett es; Previous treatment: None; Ready to change: Yes; Concerns about tobacco use in household: No; Exposure to Tobacco Smoke None; Cigarette Smoking Last 365 Days Yes; Reg Smoking Cessation Counseling Yes1 entered on: 05/31/19 1Quit since April 2016 Social History TypeResponse 05/22/2016 [facility] Substance Abuse Use: None. Alcohol Never Smoking Status Former smoker; Type: Cigarettes; Previou s treatment: None; Ready to change: Yes; Concerns about tobacco use in household: No; Exposure to Tobacco Smoke None; Cigarette Smoking Last 365 Days Yes; Reg Smoking Cessation Counseling Yes1 1Quit since April 2016 Social History TypeResponse 05/22/2016 [facility] Substance Abuse Use: None. Alcohol Never Smoking Status Current every day smoker; Type: Cigars; Previous treatment: None; Ready to change: No; Concerns about tobacco use in household: No; Exposure to Tobacco Smoke None; Other Tobacco Frequency SINCE PATIENT IS 42 YEARS OLD; Cigarette Smoking Last 365 Days Yes; Reg Smoking Cessation Counseling No Family History No Data Provided for This Section Advance Directives No Data Provided for This Section Functional Status No Data Provided for This Section
--- OUTSIDE RECORDS SUMMARY | 2019-12-30 13:05 | XMS REPORT | Continuity of Care Document ---
:1940 Author Organization [facility] t Address [address] [place] [address] [address]. [address] [place] [address] Care Team Providers Name Role Phone Jose Angel NICOLE, Manfredluz Molina Primary Care Physician [phone] Aamir Escalona MD Attending Clinician Only, Test Attending Clinician Unavailable Unique NICOLE Attending Clinician Kolton Starr Attending Clinician Yonatan Attending Clinician Kate Reyes Attending Clinician VISIT, CSL ECHO Attending Clinician Unavailable Franc Attending Clinician Madison Mckeon Attending Clinician Aamir Escalona MD Admitting Clinician Yonatan Admitting Clinician Ranjit Kwan Admitting Clinician Payers Payer Name Policy Type Policy Number Effective Date Expiration Source Date HUMANA xxxxxxxxx 2016 [place] MEDICAREHUMANA 00:00:00 [employer] MEDICARE PPO/PFFS/ERS [id number]/ [id number] Problems Condition Condition Condition Status Onset Resolution Last Treating Co mments Source Name Details Category Date Date Treatment Clinician Date Tobacco Tobacco Disease Active 2018-06 [place] abuse abuse 07-21 Methodi 00:00: st 00 SOB, WEAK Diagnosis Active 2019-01-21 Memoria 01-19 10:07:00 l SOB, 12:00: [place] WEAK 00 Active 01/19/2019 [facility] [place] Intermitte Intermitte Disease Active 2016-06 [place] nt asthma nt asthma 2-12 Meth yaakov 00:00: st 00 COPD COPD Disease Active 2016-06 [place] (chronic (chronic 2-12 Method i obstructiv obstructiv 00:00: st e e 00 pulmonary pulmonary disease) disease) with acute with acute bronchitis bronchitis SASCHA SASCHA Disease Active 2016-06 [place] (obstructi (obstructi 2-12 Me thodi ve sleep ve sleep 00:00: st apnea) apnea) 00 Dyspnea Dyspnea Disease Active 2016-06 [place] 2-12 [facility] 00:00: st 00 CHF CHF Disease Active [place] (congestiv (congestiv 8-20 Me thodi e heart e heart 00:00: st failure) failure) 00 Essential Essential Disease Active [place] ston hypertensi hypertensi 8-20 Me thodi on on 00:00: st 00 Type 2 Type 2 Disease Active [place] diabetes diabetes 8-20 Method i mellitus mellitus 00:00: st 00 Gout Gout Disease Active [place] 8-20 Methodi 00:00: st 00 AFIB/I48.2 Diagnosis Active 2016-09-15 Memoria ; HTN, DM - 10:17:00 l 00:00: [place] AFIB/I48.2 00 ; HTN, DM Active 09/14/2016 [facility] PROBABLE Diagnosis Active 2015-062016-05-27 emoria PE 07-22 22:04:00 l PROBABLE 00:00: Stewart n PE 00 Active 6 [facility] Disorder Problem Active 2019-06-03 Mem oria of 10-25 00:44:28 l refraction Disorder 00:00: He rmann AND/OR of 00 accommodat refraction ion AND/OR (disorder) accommodat ion (disorder) Active 10/25/2013 Problem 06/03/2019 Data migrated from [employer] on 11/22/14. [facility], [facility] Pseudophak Problem Active [facility] [facility] 10-25 00:44:28 l (disorder) 00:00: Stewart n Pseudophak 00 ia (disorder) Active 10/25/2013 Problem 06/03/2019 Data migrated from [email or web address] on 11/22/14. Medical Group,[facility] Long-term Problem Active 2019-06-03 Me moria drug 01-30 00:44:28 l therapy 00:00: Sampson (procedure Long-term 00 ) drug therapy (procedure ) Active 01/31/2012 Problem 06/03/2019 Data migrated from [email or web address] on 11/22/14. Medical [facility] Diabetic Problem Active 2010-062019-06-03 Mem oria complicati 07-02 00:44:28 l on Diabetic 00:00: Stewart n (disorder) complicati 00 on (disorder) Active 05/02/2011 Problem 06/03/2019 Data migrated from [email or web address] on 11/22/14. [facility] Acute Problem Resolve 2019-06-03 Shady cordelia exacerbati d 00:44:28 l on of Acute Sampson chronic exacerbati obstructiv on of e airways chronic disease obstructiv (disorder) e airways disease (disorder) Resolved Problem 06/03/2019 [facility] Acute Problem Resolve 2019-06-03 Shady cordelia renal d 00:44:28 l failure Acute Sampson syndrome renal (disorder) failure syndrome (disorder) Resolved Problem 06/03/2019 STAGE #3 [facility] Diabetes Problem Resolve 2019-06-03 Me moria mellitus d 00:44:28 l (disorder) Diabetes He rmann mellitus (disorder) Resolved Problem 06/03/2019 [facility] Asthma Problem Resolve 2019-06-03 Shady cordelia (disorder) d 00:44:28 l Asthma [place] (disorder) Resolved Problem 06/03/2019 [facility] Hypertensi Problem Resolve 2019-06-03 Memoria ve d 00:44:28 l disorder, [place] systemic Hypertensi arterial ve (disorder) disorder, systemic arterial (disorder) Resolved Problem 06/03/2019 [facility] Myocardial Problem Resolve 2019-06-03 Memoria infarction d 00:44:28 l (disorder) Stewart n Myocardial infarction (disorder) Resolved Problem 06/03/2019 TWO YEARS AGO, TWO STENT Medical [facility] Atrial Problem Active 2019-06-03 Memor ia fibrillati 00:44:28 l on Atrial Sampson (disorder) fibrillati on (disorder) Active Problem 06/03/2019 [facility] Benign Problem Active 2019-06-03 Memor ia essential 00:44:28 l hypertensi Benign Herm andrew on essential (disorder) hypertensi on (disorder) Active Problem 06/03/2019 Data migrated from [email or web address] on 11/22/14. Medical [facility] Hyperlipid Problem Active 2019-06-03 M emoria emia 00:44:28 l (disorder) Stewart n Hyperlipid emia (disorder) Active Problem 06/03/2019 Data migrated from [email or web address] on 11/22/14. Medical Group,[facility] Morbid Problem Active 2019-06-03 Memor ia obesity 00:44:28 l (disorder) Morbid Herm andrew obesity (disorder) Active Problem 06/03/2019 [facility] Nuclear Problem Active 2019-06-03 Shady cordelia cataract 00:44:28 l (disorder) Nuclear [place] cataract (disorder) Active Problem 06/03/2019 [facility] Coronary Problem Active 2019-06-03 Mem oria arterioscl 00:44:28 l erosis Coronary Stewart n (disorder) arterioscl erosis (disorder) Active Problem 06/03/2019 [facility] Diastolic Problem Active 2019-06-03 Me moria heart 00:44:28 l failure Sampson (disorder) Diastolic heart failure (disorder) Active Problem 06/03/2019 [facility] Patient Problem Active 2019-06-03 Shady cordelia encounter 00:44:28 l status Patient Sampson (finding) encounter status (finding) Active Problem 06/03/2019 Medical Group CHRONIC Diagnosis Active 2016-09-15 Me moria ATRIAL 10:17:00 l FIBRILLATI CHRONIC Her [place] ON ATRIAL FIBRILLATI ON Active [facility] Urinary Problem 2017-10-18 2017-10-18 Memoria tract - 01:10:00 01:10:00 l infection, Urinary 05:00: Her [place] site not tract 00 specified infection, site not specified 10/15/2017 10/18/2017 [facility] Allergies, Adverse Reactions, Alerts Allergy Allergy Status Severity Reaction(s) Onset Inactive Treating Comm ents Source Name Type Date Date Clinician Pioglrandall Propensi Active Hives [place] zone ty to 06-29 Methodi adverse 00:00: st reaction 00 s to drug Nitrofur Propensi Active Anaphylaxis [place] antoin ty to 06-29 Method[facility] Macrocry adverse 00:00: st stal reaction 00 s to drug Predniso Propensi Active Other (See [place] ne ty to Comments) 06-29 Methodi adverse 00:00: st reaction 00 s to drug Tramadol Propensi Active Swelling [place] ty to 06-29 Methodi adverse 00:00: st reaction 00 s to drug predniSO predniSO Active Memori a NE<sup>3 NE<sup>3 5-02 l </sup> </sup> 05:00: [place] 00 pioglita pioglita Active Memori a zone<sup zone<sup 8-07 l >1</sup> >1</sup> 05:00: Stewart n 00 Macrodan Macrodan Active Memori a tin tin l Sampson nitrofur nitrofur Active Memori a antoin<s antoin<s l up>1</burdick up>1</burdick Stewart n p> p> traMADol traMADol Active Memori a <sup>4</ <sup>4</ l sup> sup> Sam[place] Family History Family Member Diagnosis Comments Start Date Stop Date Source Natural father Heart attack [place] [employer] Natural father Prostate cancer [place]rian[place] Natural mother Heart disease [place] [employer] Natural mother Hypertension [facility] Social History Social Habit Start Date Stop Date Quantity Comments Source Sex Assigned At [facility] ethodist Alcohol intake 2019-11-26 2019-11-26 Current [facility] thodist 00:00:00 00:00:00 non-drinker of alcohol (finding) Social History 2016-05-22 2016-05-22 Nika strickland 20:05:58 20:05:58 Smoking Status Start Date Stop Date Source Former smoker 2019-11-26 00:00:00 2019-11-26 00:00:00 [place] Zoroastrianism Medications Ordered Filled Start Stop Current Ordering Indication Dosage Frequency Signature Comments Components Source Medication Medication Date Date Medication? Clinician (SIG) Name Name albuterol 2019- No 2{puff} Q6H Inhale 2 [place] (ProAir 11-25-02 puffs Methodi HFA) 90 00:00: 23:[address] mcg/actuati 00 :00 (six) on inhaler hours as needed for wheezing for up to 30 days. umeclidiniu 2018-06 Yes Inhale. [place] ston m-vilantero 07-21 Methodi l 62.5-25 13:32: st mcg/actuati 59 on blister with device atorvastati 2018-06 Yes 20mg QD Take 20 mg Marcus n (LIPITOR) 07-21 by mouth Meth yaakov 20 MG 13:32: nightly. st tablet 59 INSULIN 2018-06 Yes Inject Marcus SUBCUTANEOU 07-21 under the Met hodi S PUMP, 13:32: skin st HUMALOG, 59 continuous 100 ly. UNITS/ML INSULIN PUMP INFUSION (HumaLOG) lisinopril 2018-06 Yes 2.5mg QD Take 2.5 [place] (PRINIVIL,Z 1-26 mg by Methodi ESTRIL) 2.5 13:32: mouth st mg tablet 59 daily. amLODIPine 2018-06 Yes 5mg QD Take 5 mg [place] (NORVASC) 5 -26 by mouth Meth yaakov mg tablet 13:32: daily. st 59 furosemide 2018-06 Yes 40mg QD Take 40 mg [place] (LASIX) 40 1-26 by mouth Metho di mg tablet 13:32: daily. st 59 allopurinol 2018-06 Yes 100mg QD Take 100 [place] (ZYLOPRIM) 1-26 mg by Methodi 100 MG 13:32: mouth st tablet 59 daily. rivaroxaban 2018-06 Yes 15mg Take 15 mg Marcus (XARELTO) 1-26 by mouth. Metho di 15 mg 13:32: st tablet 59 cholecalcif 2018-06 Yes 2000U QD Take 2,000 Marcus nevaeh, 1-26 Units by Methodi vitamin D3, 13:32: mouth st (VITAMIN 59 daily. D3) 2,000 unit capsule capsule guaiFENesin 2018-06 2019- No 200mg [id number] Take 10 mL Marcus (ROBITUSSIN -06-20 [id number] (200 mg Methodi ) 100 mg/5 00:00: 23:59 3D total) by s t mL syrup 00 :00 mouth 3 (three) times a day as needed for cough for up to 30 days. rivaroxaban Yes 15 mg = 1 M emoria 15 MG Oral 8-15 tab, PO, l Tablet 19:09: Daily, # [place] [Xarelto] 00 90 tab, 3 Refill(s), Pharmacy: [id number] fluticasone Yes USE 1 [place] propionate 8-14 SPRAY IN Metho di (FLONASE) 00:00: EACH st 50 00 NOSTRIL mcg/actuati TWICE on nasal DAILY spray ipratropium 2019- No 3mL Q.25D Take 3 mL Marcus -albuterol 02-05 by Methodi (DUO-NEB) 14:04: 00:00 nebulizati s t 0.5-2.5 39 :00 on 4 mg/mL (four) nebulizer times a day. fluticasone 2019- No 2{spray QD 2 sprays Marcus (FLONASE) 02-05 } by Each Method i 50 14:04: 00:[address] mcg/actuati 39 :00 daily. on nasal spray ipratropium Yes 3mL Q.25D Take 3 mL Marcus -albuterol 8-13 by Methodi (DUO-NEB) 00:00: nebulizati st 0.5-2.5 00 on 4 mg/3 mL (four) nebulizer times a day. fluticasone 2019- No 50ug Q.5D 1 spray [place] propionate 02-05 (50 mcg Metho di (FLONASE) 00:00: 00:00 total) by st 50 00 :00 Each Nare mcg/actuati route 2 on nasal (two) spray times a day. levothyroxi Yes 50 Memori a ne 50 mcg 7-29 microgram l (0.05 mg) 16:01: = 1 tab, Herm andrew oral tablet 00 PO, Daily, 0 Refill(s) Lisinopril No Notes: Memor ia - (Same as: l 15:00: Prinivil, Zestril) Allopurinol No Notes: Shady cordelia - (Same as: l 15:00: Zyloprim) Insulin No Notes: Memoria Glargine - (Same as: l 100 UNT/ML 14:35: Lantus) Do H erm not hold Solution insulin [Lantus] without contacting prescriber WASTE: F/P - Black; E - Municipal Trash Bin "single patient use only" Stable for 28 days at room temperatur e Expires in days from ____Date Insulin No Notes: Memoria Lispro 01-21 (Same as: l 05:30: Humalog) Roll in palms of hands gently; Do not shake vigorously . WASTE: F/P - Black; E - Municipal Trash Bin Stable for 28 days at room temperatur e. Expires in days from ____Date Dextrose No 25 gm, 50 Shady cordelia 50% Syringe 7-29 mL, Route: l 05:30: IVP, Drug Form: INJ, Dosing Weight 125.455, kg, PRN, PRN Blood Glucose Results, Start date: 01/21/19 0:30:00 CDT, 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 day, Stop date: 02/20/19 0:29:00 CDT, 0 Glucagon No 1 mg, Memoria 01-21 Route: IM, l 05:30: Drug form: PDR/INJ, PRN, Dosing Weight 125.455, kg, PRN Blood Glucose Results, Start date: 01/21/19 0:30:00 CDT, 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 day, Stop date: 02/20/19 0:29:00 CDT, 0 Insulin No Notes: Memoria Lispro - (Same as: l 05:01: Humalog) Roll in palms of hands gently; Do not shake vigorously . WASTE: F/P - Black; E - Municipal Trash Bin Stable for 28 days at room temperatur e. Expires in days from ____Date atorvastati No Notes: Shady cordelia n 01-20 (Same As: l 22:00: Lipitor) Xarelto No Notes: Memoria - (Same as: l 22:00: Xarelto) Administer with food Amlodipine No Notes: Memor ia 01-20 (Same as: l 14:00: Norvasc) Aspirin No Notes: Memoria 7-28 Take with l 14:00: food. Sampson 00 Saline No Notes: Memoria Flush 0.9% 01-20 (Same as: l 14:00: BD Sampson 00 Posiflush) Protonix No Notes: Memoria 7-28 Tablet l 12:30: should not Sampson 00 be chewed or crushed. (Same as: Protonix) Ipratropium No Notes: SEE Memoria [place] 0.2 - RT l MG/ML 12:00: DOCUMENTAT Stewart n Inhalant 00 ION (Same Solution as:Atroven t) Synthroid No Notes: Memori a 7-28 Take 1 l 11:30: hour Sampson 00 before or 2 hours after meal; Enteral feeds may interefere with the absorption of this medication .(Same as:Levothr oid, Synthroid) normal No 500 mL, Memoria saline 0.9% 7-28 Rate: 50 l IV 500 mL 10:12: ml/hr, Stewart n 00 Infuse over: 10 hr, Route: IV, Dosing Weight 125.455 kg, Total Volume: 500, Start date: 01/20/19 5:12:00 CDT, Duration: 1 doses or times, Stop date: 01/20/19 15:11:00 CDT, 2.46, m2, 0 Nicotine No Notes: Memoria 01-20 (Same as: l 07:40: Habitrol) "Remove old patch before applicatio n of new patch" WASTE: F/P - P Waste Black; E - P Waste Black Tylenol No Notes: Do Memor ia 01-20 not exceed l 07:39: 4 gm/day. (Same as: Tylenol) Aspirin Yes 81 mg, PO, Shady cordelia - Daily, 0 l 07:36: Refill(s) allopurinol Yes 100 mg = 1 Memoria 100 mg oral 01-20 tab, PO, l tablet 07:36: Daily, 0 Refill(s) Levothyroxi Yes 50 Memori a ne Sodium 01-20 microgram l 0.05 MG 07:36: = 1 tab, Stewart n Oral Tablet 00 PO, Daily, [Synthroid] 0 Refill(s) Ventolin Yes 2 puff, Memori a HFA 90 01-20 INHALATION l mcg/inh 07:36: , PRN, 0 Stewart n inhalation 00 Refill(s) aerosol with adapter Anoro Yes 1 puff, Memoria Ellipta 01-20 INHALER, l 62.5 mcg-25 07:36: Daily, # 1 [place] mcg 00 ea, 3 inhalation Refill(s) powder Insulin No Notes: Memoria Lispro 01-20 (Same as: l 07:30: Humalog) Roll in palms of hands gently; Do not shake vigorously . WASTE: F/P - Black; E - Municipal Trash Bin Stable for 28 days at room temperatur e. Expires in days from ____Date Dextrose No 25 gm, 50 Shady cordelia 50% Syringe 7-28 mL, Route: l 07:30: IVP, Drug Form: INJ, Dosing Weight 124.8, kg, PRN, PRN Blood Glucose Results, Start date: 01/20/19 2:30:00 CDT, 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 day, Stop date: 02/19/19 2:29:00 CDT, 0 Glucagon No 1 mg, Memoria 01-20 Route: IM, l 07:30: Drug form: PDR/INJ, PRN, Dosing Weight 124.8, kg, PRN Blood Glucose Results, Start date: 01/20/19 2:30:00 CDT, 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 day, Stop date: 02/19/19 2:29:00 CDT, 0 Saline No Notes: Memoria Flush 0.9% 01-20 (Same as: l 07:28: BD Posiflush) Nitroglycer No Notes: Shady cordelia in 01-20 (Same l 07:28: as:Nitroqu ick, Nitrostat) "Do Not Crush" Sublingual tablet Aspirin 325 No Notes: Shady cordelia MG Oral 01-20 Take with l Tablet 05:07: food. alendronate Yes TK 1 T PO [place] (FOSAMAX) 01-09 ONCE A Methodi 70 MG 00:00: WEEK. st tablet 00 rivaroxaban Yes 15 mg = 1 M emoria 15 MG Oral 5-31 tab, PO, l Tablet 18:49: QPM, # 90 Stewart n [Xarelto] 00 tab, 3 Refill(s), Pharmacy: [facility] lisinopril Yes 5 mg = 1 Mem oria 5 mg oral 5-31 tab, PO, l tablet 18:48: Daily, # Sampson 00 90 tab, 3 Refill(s), Pharmacy: [facility] atorvastati Yes 20 mg = 1 M emoria n 20 mg 5-31 tab, PO, l oral tablet 18:47: QPM, # 90 H [place] 00 tab, 3 Refill(s), Pharmacy: [facility] amLODIPine Yes 5 mg = 1 Mem oria 5 mg oral 5-31 tab, PO, l tablet 18:46: Daily, # Sampson 00 90 tab, 3 Refill(s), Pharmacy: [facility] rivaroxaban No 15 mg = 1 M emoria 15 MG Oral 5-31 tab, PO, l Tablet 18:42: QPM, 0 Sampson [Xarelto] 00 Refill(s) lisinopril No 5 mg = 1 Mem oria 5 mg oral 5-31 tab, PO, l tablet 18:42: Daily, # [place] 00 90 tab, 3 Refill(s) metoprolol Yes 25 mg = 1 Me moria 25 mg oral 5-31 tab, PO, l tablet, 18:37: Daily, # Stewart n extended 00 90 tab, 3 release Refill(s), Pharmacy: [facility] [id number] Alendronic Yes 70 mg = 1 Me moria acid 70 MG 5-31 tab, PO, 0 l Oral Tablet 18:33: Refill(s) H [place] metoprolol Yes TK 1 T PO [place] succinate 5-31 D Methodi XL 00:00: st (TOPROL-XL) 00 25 mg 24 hr tablet albuterol 2017-06 Yes 180ug Q4H Inhale 180 [place] sulfate 2-12 mcg every Methodi (PROAIR 00:00: 4 (four) st RESPICLICK) 00 hours. 90 mcg/actuati on aerosol powdr breath activated MUCINEX 600 2017-06 Yes TAKE 1 [place] mg tablet 0-24 TABLET BY Metho di extended 00:00: MOUTH st release 00 TWICE 12hr DAILY Phenazopyri No 100 mg = 1 Memoria dine 4-22 tab, PO, l hydrochlori 14:42: TID, PRN He rmann de 100 MG 00 Dysuria, X Oral Tablet 2 day, # 6 [Pyridium] tab, 0 Refill(s) Cephalexin Yes 500 mg = 1 M emoria 500 MG Oral 4-22 cap, PO, l Capsule 14:42: QID, X 10 Beronica nn [Keflex] 00 day, # 40 cap, 0 Refill(s) Acetaminoph No 1 tab, Shady cordelia en 325 MG / 4-22 Route: PO, l Hydrocodone 14:13: Drug Form: Sampson Bitartrate 00 TAB, 5 MG Oral Dosing Tablet Weight [[place] 124.091, 5/325] kg, ONCE, STAT, Start date: 10/15/17 9:13:00 CDT, Stop date: 10/15/17 9:13:00 CDT Pyridium No Notes: Memoria 4-22 Give with l 14:12: meals. Sampson 00 (Same as: Pyridium) Furosemide Yes 40 mg = 1 Me moria 40 MG Oral 1-26 tab, PO, l Tablet 17:16: BID, # 180 Beronica nn 00 tab, 3 Refill(s), Pharmacy: [facility] Levothyroxi 2016-06 Yes 25 Memori a ne Sodium 2-15 microgram l 0.025 MG 17:43: = 1 tab, Beronica nn Oral Tablet 00 PO, Daily, [Synthroid] # 90 tab, 3 Refill(s), Pharmacy: [facility] [place] [id number] Levothyroxi 2016-06 No 25 Memori a ne Sodium 2-15 microgram l 0.025 MG 17:42: = 1 tab, Beronica nn Oral Tablet 00 PO, Daily, [Synthroid] 0 Refill(s) Ipratropium 2016-06 Yes 500 Memori a [place] 0.2 2-15 microgram l MG/ML 17:09: = 2.5 mL, [place] Inhalant 00 NEB, QID, Solution 0 Refill(s) metoprolol 2016-06 No 50 mg = 1 Me moria tartrate 50 2-15 tab, PO, l mg oral 17:09: BID, 0 [place] tablet 00 Refill(s) amLODIPine 2016-06 Yes 5 mg = 1 Mem oria 5 mg oral 2-15 tab, PO, l tablet 17:09: Daily, 0 [place] 00 Refill(s) lisinopril 2016-06 Yes 2.5 mg = 1 M emoria 2.5 mg oral 2-15 tab, PO, l tablet 17:09: Daily, 0 [place] 00 Refill(s) fluticasone 2016-06 Yes INHALATION Memoria furoate 2-15 , Q24H, 0 l 17:09: Refill(s) Sampson 00 24 HR No Notes: Memoria Metoprolol 3-24 (Same as: l Tartrate 25 14:00: Toprol XL) Sampson MG Extended 00 Do Not Release Crush Tablet [Toprol] Magnesium No Notes: Memori a Oxide 3-24 (Same as: l 14:00: Mag-Ox [place] 00 400) Magnesium oxide [id number] g elemental magnesium Dose=____m g magnesium oxide (___mg elemental magnesium) Humalog No Route: Memoria 3-24 SUB-Q, l 14:00: Daily, Sampson 00 Dosing Weight 117.841, kg, Start date: 09/16/16 9:00:00 CDT, 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 day, Stop date: 10/15/16 9:00:00 CDT Vitamin D3 No Notes: Memor ia 2000 intl 3-24 Same as : l units oral 14:00: Vitamin D3 H ermann tablet Amiodarone No Notes: Memor ia 3-24 (Same as: l 14:00: Cordarone) Allopurinol No Notes: Shady cordelia 3-24 (Same as: l 14:00: Zyloprim) Xarelto No Notes: Memoria 3-23 (Same as: l 22:00: Xarelto) Administer with food Furosemide No Notes: Memor ia 40 MG Oral 3-23 (Same as: l Tablet 22:00: Lasix) May cause GI upset. Give with food or milk. atorvastati No Notes: Shady cordelia n 3-23 (Same As: l 22:00: Lipitor) AMIODarone Yes 300 mg, Shady cordelia 300 mg oral 3-23 PO, Daily, l tablet 14:51: 0 Refill(s) AMIODarone No 200 mg = 1 M emoria 200 mg oral 3-23 tab, PO, l tablet 14:38: BID Furosemide Yes 40 mg = 1 Me moria 40 MG Oral 3-23 tab, PO, l Tablet 14:20: BID magnesium Yes 500 mg = 1 Me moria oxide 500 3-23 tab, PO, l mg oral 14:20: Daily [place] tablet metoprolol Yes 25 mg = 1 Me moria 25 mg oral 3-23 tab, PO, l tablet, 14:20: Daily extended 00 release Humalog Yes 102UNITS, Memor ia 3-23 SUB-Q, l 14:20: Daily, INSULIN PUMP DORINA-FLOW Yes DORINA-FLOW Memor ia SPRAY 3-23 SPRAY, 1 l 14:20: spray, NASAL, Daily atorvastati Yes 20 mg = 1 M emoria n 20 mg 3-23 tab, PO, l oral tablet 14:20: QPM Stewart n 00 allopurinol Yes 300 mg = 1 Memoria 300 mg oral 3-23 tab, PO, l tablet 14:20: Daily Sampson 00 Probiotic No 1 cap, PO, Me moria Formula 3-23 Daily, 0 l oral 14:20: Refill(s) capsule 00 Vitamin D3 Yes 2,000 Memori a 2000 intl 3-23 IntlUnit = l units oral 14:20: 1 tab, PO, H [place] tablet 00 Daily [place]-3 Yes 1 tab, PO, Shady cordelia oral 3-23 BID l capsule 14:20: 00 Benadryl No Notes: Memoria 3-23 (Same as: l 12:24: Benadryl) Valium No Notes: Memoria 3-23 (Same as: l 12:24: Valium) sodium No 1,000 mL, Memori a chloride 3-23 Rate: 100 l 0.45% 1000 12:23: ml/hr, Beronica nn ml INJ 00 Infuse 1,000 mL over: 10 hr, Route: IV, Dosing Weight 123.409 kg, Total Volume: 1,000, Start date: 09/15/16 7:23:00 CDT, 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 day, Stop date: 10/15/16 7:22:00 CDT Lasix 2015-06 No 40 mg, Memoria 07-24 Route: IV, l 15:00: Daily, Sampson 00 Dosing Weight 123.409, kg, Start date: 05/24/16 9:00:00 BREAK OUT WORKER, 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 day, Stop date: 06/22/16 9:00:00 BREAK OUT WORKER albuterol 2015-06 Yes Notes: Memori a 07-24 Albuterol l 02:15: 90 [place] 00 microgram/ inh 8gm HFA WASTE: Aerosol - Return to Pharmacy Same as: [facility] Proventil 200 ACTUAT 2015-06 No Notes: Memor ia Albuterol 07-24 Albuterol l 0.09 01:47: 90 [place] MG/ACTUAT 00 microgram/ Metered inh 8gm Dose HFA Inhaler WASTE: [ProAir Aerosol - HFA] Return to Pharmacy Same as: [facility] Proventil 200 ACTUAT 2015-06 Yes 2 puff, Shady cordelia Albuterol 07-24 INHALER, l 0.09 01:44: Q6H, PRN [place] MG/ACTUAT 00 for Metered wheezing, Dose # 18 gm, 0 Inhaler Refill(s) [ProAir HFA] Furosemide 2015-06 Yes 40 mg = 1 Me moria 40 MG Oral -29 tab, PO, l Tablet 01:44: Daily, # [place] [Lasix] 00 30 tab, 0 Refill(s) rivaroxaban 2015-06 Yes 20 mg = 1 M emoria 20 MG Oral -29 tab, PO, l Tablet 01:44: QPM, # 30 Stewart n [Xarelto] 00 tab, 0 Refill(s) Lasix 2015-06 No Notes: Memoria 07-23 (Same as: l 17:11: Lasix) MEDICATION WASTE Product Size: 40 mg Product Wasted: ___ mg Lisinopril 2015-06 No Notes: Memor ia 07-23 (Same as: l 15:00: Prinivil, [place] 00 Zestril) Plavix 2015-06 No Notes: Memoria 07-23 (Same As: l 15:00: Plavix) [place] 00 Aspirin 2015-06 No Notes: Do Memor ia 07-23 not crush l 15:00: or chew. [place]pson 00 (Same As: Ecotrin) metoprolol 2015-06 No Notes: Memor ia extended 07-23 (Same as: l release 15:00: Toprol XL) Herm andrew May split tab, but do not crush. atorvastati 2015-06 No Notes: Shady cordelia n 1-28 Same as l 03:00: Lipitor Hydralazine 2015-06 No Notes: Shady cordelia 07-23 (Same as: l 00:29: Apresoline ) Push over 5 minutes potassium 2015-06 No Notes: Memori a phosphate-s 07-22 (Same as: l odium 23:46: Phos-NaK) phosphate 00 Each 1.5 250 mg-280 gm pkt has mg-160 mg 250mg oral powder phosphorou for s. Mix reconstitut w/2.5oz ion water and stir. heparin 2015-06 No Notes: Memoria sodium, 07-22 porcine l porcine 22:00: heparin [place] 2500 UNT/ML 00 Injectable Solution Insulin, 2015-06 No Notes: [facility]oria Aspart, 07-22 Roll in l Human 21:45: palms of Sampson hands gently; Do not shake vigorously . (Same as: NovoLOG) "single patient use only" WASTE: F/P - Black; E - brettapproved Trash Bin Stable for 28 days at room temperatur e. Expires in days from ____Date Dextrose 2015-06 No 25 gm, 50 Shady cordelia 50% Syringe - mL, Route: l 21:45: IVP, Drug Form: INJ, Dosing Weight 123.409, kg, PRN, PRN Blood Glucose Results, Start date: 05/22/16 15:45:00 BREAK OUT WORKER, 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 day, Stop date: 06/21/16 15:44:00 BREAK OUT WORKER Glucagon 2015-06 No 1 mg, Memoria 07-22 Route: IM, l 21:45: Drug form: [place] 00 PDR/INJ, PRN, Dosing Weight 123.409, kg, PRN Blood Glucose Results, Start date: 05/22/16 15:45:00 BREAK OUT WORKER, 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 day, Stop date: 06/21/16 15:44:00 BREAK OUT WORKER Albuterol 2015-06 No Notes: Memori a 0.833 MG/ML 07-22 (Same as: l / 21:36: Duoneb) Ipratropium 00 [place] 0.167 MG/ML Inhalant Solution [DuoNeb] Insulin Pen 2015-06 No Novolog Mem oria [place] l Misc/Other 20:24: [place] 00 Metformin 2015-06 Yes 500 mg = 1 Me moria hydrochlori 07-22 tab, PO, l de 500 MG 20:12: Daily [place] Oral Tablet 00 metoprolol 2015-06 Yes 50 mg = 1 Me moria 50 mg oral - tab, PO, l tablet, 20:12: Daily [place] extended 00 release Aspirin 81 2015-06 No 81 mg = 1 Me moria MG Chewable 07-22 tab, PO, l Tablet 20:12: Daily allopurinol 2015-06 Yes 100 mg = 1 Memoria 100 mg oral 07-22 tab, PO, l tablet 20:12: Daily MAGNESIUM 2015-06 Yes 400, PO, Shady cordelia GLUCONATE 07-22 Daily l 20:12: [place] 00 non-formula 2015-06 Yes PO, Daily, Memoria ry 07-22 OMEGA 3- l 20:12: DHA-EPA-FI SH OIL (OMEGA-3 FISH OIL) 1000 MG (120 MH-180 MG)CAP, Refill(s) 0 lisinopril 2015-06 Yes 5 mg = 1 Mem oria 5 mg oral 07-22 tab, PO, l tablet 20:12: Daily 00 Furosemide 2015-06 No 20 mg = 1 Me moria 20 MG Oral 07-22 tab, PO, l Tablet 20:12: Daily 00 cholecalcif 2015-06 Yes 2,000 Memor ia nevaeh 2000 07-22 IntlUnit = l intl units 20:12: 1 cap, PO, H ermann oral 00 Daily capsule atorvastati 2015-06 Yes 20 mg = 1 M emoria n 20 mg 07-22 tab, PO, l oral tablet 20:12: Daily [place] nn 00 [place] 2015-06 Yes 0.6 mg = 1 M emoria 0.6 MG Oral 07-22 cap, PO, l Capsule 20:12: Daily 00 Vital Signs Vital Name Observation Time Observation Value Comments Source Systolic (mm Hg) 2019-05-31 19:58:00 Shady rial [place] Diastolic (mm Hg) 2019-05-31 19:58:00 Mem o[facility] [place] Heart Rate 2019-05-31 19:58:00 [facility] Height 2019-05-31 19:58:00 167.64 cm [facility] [place] Weight 2019-05-31 19:58:00 [facility] [place] BMI Calculated 2019-05-31 19:58:00 [facility] [place] Systolic blood 2019-05-21 13:35:00 128 mm[Hg] [place] [facility] pressure Diastolic blood 2019-05-21 13:35:00 74 mm[Hg] [place] [facility] pressure Heart rate 2019-05-21 13:35:00 55 /min [place] [facility] Body temperature 2019-05-21 13:35:00 36.56 [place] [facility] Respiratory rate 2019-05-21 13:35:00 14 /min [place] [facility] Body weight 2019-05-21 13:35:00 123.378 kg [place] [facility] BMI 2019-05-21 13:35:00 43.90 kg/m2 [place] [facility] Oxygen saturation in 2019-05-21 13:35:00 98 /min [place] [facility] Arterial blood by Pulse oximetry Body height 2019-02-05 13:30:00 167.6 cm [place] [facility] Systolic (mm Hg) 2019-01-21 17:08:00 Shady rial [place] Diastolic (mm Hg) 2019-01-21 17:08:00 [facility] [place] Temperature Oral (F) 2019-01-21 17:08:00 97.5 F [facility] [place] Respitory Rate 2019-01-21 17:08:00 [facility] [place] Heart Rate 2019-01-21 17:08:00 [facility] [place] Systolic (mm Hg) 2019-01-21 13:48:00 Shady rial [place] Diastolic (mm Hg) 2019-01-21 13:48:00 [facility] [place] Respitory Rate 2019-01-21 13:48:00 [facility] [place] Heart Rate 2019-01-21 13:48:00 [facility] [place] Temperature Oral (F) 2019-01-21 13:48:00 97.8 F [facility] [place] Systolic (mm Hg) 2019-01-21 09:43:00 Shady rial [place] Diastolic (mm Hg) 2019-01-21 09:43:00 [facility] [place] Respitory Rate 2019-01-21 09:43:00 [facility] [place] Heart Rate 2019-01-21 09:43:00 [facility] [place] Temperature Oral (F) 2019-01-21 09:43:00 97.5 F [facility] [place] Weight 2019-01-20 07:45:00 [facility] [place] BMI Calculated 2019-01-20 07:45:00 [facility] [place] Height 2019-01-20 07:45:00 167.64 cm [facility] [place] Weight 2019-01-20 04:43:00 [facility] [place] Weight 2018-11-23 18:30:00 [facility] [place] BMI Calculated 2018-11-23 18:30:00 [facility] [place] Height 2018-11-23 18:30:00 167.64 cm [facility] [place] Systolic (mm Hg) 2018-11-23 18:30:00 Shady rial [place] Diastolic (mm Hg) 2018-11-23 18:30:00 [facility] [place] Heart Rate 2018-11-23 18:30:00 [facility] [place] Weight 2018-09-05 18:57:00 [facility] [place] Height 2018-09-05 18:57:00 167.64 cm [facility] [place] BMI Calculated 2018-09-05 18:57:00 [facility] [place] Systolic (mm Hg) 2018-09-05 18:57:00 Shady rial [place] Diastolic (mm Hg) 2018-09-05 18:57:00 Mem o[facility] [place] Heart Rate 2018-09-05 18:57:00 [facility] [place] Weight 2017-11-17 15:40:00 [facility] [place] BMI Calculated 2017-11-17 15:40:00 [facility] [place] Height 2017-11-17 15:40:00 167.64 cm [facility] [place] Heart Rate 2017-11-17 15:40:00 [facility] [place] Systolic (mm Hg) 2017-11-17 15:40:00 Shady rial [place] Diastolic (mm Hg) 2017-11-17 15:40:00 [facility] [place] Temperature Oral (F) 2017-10-15 14:50:00 97.5 F [facility] [place] Respitory Rate 2017-10-15 14:50:00 [facility] [place] Heart Rate 2017-10-15 14:50:00 [facility] [place] Systolic (mm Hg) 2017-10-15 14:50:00 Shady rial [place] Diastolic (mm Hg) 2017-10-15 14:50:00 [facility] [place] BMI Calculated 2017-10-15 13:56:00 [facility] [place] Weight 2017-10-15 13:56:00 [facility] [place] Heart Rate 2017-10-15 13:56:00 [facility] [place] Respitory Rate 2017-10-15 13:56:00 [facility] [place] Systolic (mm Hg) 2017-10-15 13:56:00 Shady rial [place] Diastolic (mm Hg) 2017-10-15 13:56:00 [facility] [place] Temperature Oral (F) 2017-10-15 13:56:00 97.5 F [facility] [place] Height 2017-10-15 13:56:00 167.64 cm [facility] [place] BMI Calculated 2017-08-18 16:41:00 [facility] [place] Heart Rate 2017-08-18 16:41:00 [facility] [place] Systolic (mm Hg) 2017-08-18 16:41:00 Shady rial [place] Diastolic (mm Hg) 2017-08-18 16:41:00 [facility] [place] Weight 2017-08-18 16:41:00 [facility] [place] Height 2017-08-18 16:41:00 167.4 cm [facility] [place] BMI Calculated 2017-07-21 16:38:00 [facility] [place] Height 2017-07-21 16:38:00 167.64 cm [facility] [place] Weight 2017-07-21 16:38:00 [facility] [place] Systolic (mm Hg) 2017-07-21 16:38:00 Shady rial [place] Diastolic (mm Hg) 2017-07-21 16:38:00 Mem [facility] [place] Heart Rate 2017-07-21 16:38:00 [facility] [place] Weight 2017-06-09 16:57:00 [facility] [place] BMI Calculated 2017-06-09 16:57:00 [facility] [place] Height 2017-06-09 16:57:00 167.64 cm [facility] [place] Heart Rate 2017-06-09 16:57:00 [facility] [place] Systolic (mm Hg) 2017-06-09 16:57:00 Shady rial [place] Diastolic (mm Hg) 2017-06-09 16:57:00 Mem o[facility] [place] BMI Calculated 2016-09-15 14:42:00 [facility] [place] Height 2016-09-15 14:42:00 167.64 cm [facility] [place] Weight 2016-09-15 14:42:00 [facility] [place] Systolic (mm Hg) 2016-09-15 13:00:00 Shady rial [place] Diastolic (mm Hg) 2016-09-15 13:00:00 Mem [facility] [place] Respitory Rate 2016-09-15 13:00:00 [facility] [place] Heart Rate 2016-09-15 13:00:00 [facility] [place] Systolic (mm Hg) 2016-05-24 01:25:00 Shady rial [place] Diastolic (mm Hg) 2016-05-24 01:25:00 [facility] [place] Respitory Rate 2016-05-24 01:25:00 [facility] [place] Heart Rate 2016-05-24 01:25:00 [facility] [place] Temperature Oral (F) 2016-05-24 01:25:00 97.2 F [facility] [place] Systolic (mm Hg) 2016-05-23 22:04:00 Shady rial [place] Diastolic (mm Hg) 2016-05-23 22:04:00 Mem [facility] [place] Heart Rate 2016-05-23 22:04:00 [facility] [place] Respitory Rate 2016-05-23 22:04:00 [facility] [place] Temperature Oral (F) 2016-05-23 22:04:00 97.8 F [facility] [place] Respitory Rate 2016-05-23 17:16:00 [facility] [place] Temperature Oral (F) 2016-05-23 17:16:00 97.1 F [facility] [place] Systolic (mm Hg) 2016-05-23 17:16:00 Shady rial [place] Diastolic (mm Hg) 2016-05-23 17:16:00 Mem o[facility] [place] Heart Rate 2016-05-23 17:16:00 [facility] [place] Weight 2016-05-22 20:00:00 [facility] [place] BMI Calculated 2016-05-22 20:00:00 [facility] [place] Height 2016-05-22 20:00:00 167.64 cm [facility] [place] Procedures Procedure Date / Time Performed Performing Clinician Sourc e Bladder operation [facility] [place] nn Cardioversion [facility] [place] Cataract surgery [facility] [place] n Hysterectomy [facility] [place] Knee [facility] [place] arthroplasty<sup>1</sup> Tonsillectomy [facility] [place] Breast biopsy and related [facility] [place] procedures Miscellaneous [facility] [place] operations<sup>2</sup> Skin operation<sup>3</sup> Memor ial [place] Plan of Care Planned Activity Planned Date Details Comments Source Future Scheduled 2020-01-25 INFLUENZA VACCINE [place] [facility] 00:00:00 [code = INFLUENZA VACCINE] Future Scheduled 2007 65+ PNEUMOCOCCAL [place] [facility] Test 00:00:00 VACCINE (1 of 2 - PCV13) [code = 65+ PNEUMOCOCCAL VACCINE (1 of 2 - PCV13)] Future Scheduled 1992 SHINGLES VACCINES (#1) [place] [facility] Test 00:00:00 [code = SHINGLES VACCINES (#1)] Future Scheduled 1952 DIABETIC FOOT EXAM [place] [facility] Test 00:00:00 [code = DIABETIC FOOT EXAM] Future Scheduled 1952 URINE MICROALBUMIN [place] [facility] Test 00:00:00 [code = URINE MICROALBUMIN] Future Scheduled 1942 DIABETIC RETINAL EYE [place] [facility] 00:00:00 EXAM [code = DIABETIC RETINAL EYE EXAM] Encounters Start End Encounter Admission Attending Care Care Encounter Source Date/Time Date/Time Type Type Clinicians Facility Department ID 2019-12-12 2019-12-12 [facility] [id number] 07:30:00 10:07:00 Encounter eIraida [id number] [place] [id number] [facility] [id number] [place] 071 2019-12-11 2019-12-11 Laboratory Only, [facility] [id number] 14:05:06 14:20:06 Only Test Abi [id number] [place] [id number] [place] [id number] [facility] 2019-11-26 2019-11-26 Outpatient KATH, [facility] [id number] [place] 00:00:00 00:00:00 ANNIKA [address] 2019-05-31 2019-05-31 [place] [id number] 14:00:00 23:59:59 Rian Hi 13 2019-01-19 2019-01-21 [place] [id number] 23:41:51 15:04:00 Shania 2019-01-19 2019-01-19 Outpatient E MHFB MED [id number] [facility]FB 23:41:00 23:41:00 2018-11-23 2018-11-23 Outpatient Ro [facility]MG MH[facility] [id number] 14:00:00 23:59:59 [facility] 12 2018-09-07 2018-09-07 Outpatient Ro, [facility] MH[facility] [id number] 13:15:00 13:15:00 [facility] 10 2018-09-05 2018-09-05 Outpatient Ro, [facility] MH[facility] [id number] 13:00:00 23:59:59 [facility] 11 2018-06-21 2018-06-21 Outpatient Ro, [facility]MG MH[facility] [id number] 11:30:00 11:30:00 [facility] 09 2018-05-11 2018-05-11 Outpatient Ro, MHMG MHMG [id number] 10:30:00 10:30:00 [facility] 08 2017-11-17 2017-11-17 Outpatient Ro, MHMG MHMG [id number] 10:15:00 23:59:59 [facility] 07 2017-10-15 2017-10-15 Outpatient Rhett Reyes MHSL MHSL [id number] 08:51:00 09:50:00 Si 2017-08-18 2017-08-18 Outpatient Ro, MHMG MHMG [id number] 10:45:00 23:59:59 [facility] 2017-07-21 2017-07-21 Outpatient Ro, MHMG MHMG [id number] 10:15:00 23:59:59 [facility] 2017-07-21 2017-07-21 Outpatient VISIT, MHMG MHMG [id number] 10:00:00 23:59:59 NURSE CSL 04 RAFA 2017-07-14 2017-07-14 Outpatient VISIT, MHMG MHMG [id number] 10:00:00 10:00:00 NURSE CSL 03 ECHO 2017-06-09 2017-06-09 Outpatient Ro, MHMG MHMG [id number] 10:30:00 23:59:59 [facility] 2016-09-15 2016-09-15 [id number] 06:23:00 10:45:00 Lan 00 2016-05-22 2016-05-23 Outpatient Mike [facility] [id number] 13:52:00 20:20:00 Anish [address] [place] Results Test Description Test Time Test Comments Results Result Comments Source ELECTROLYTES 2019-01-21 20 [facility] 15:52:00 HEMATOLOGY 2019-01-21 96.8 [facility] [place] nn 15:52:00 HEMATOLOGY 2019-01-21 38.0 [facility] [place] 15:52:00 HEMATOLOGY 2019-01-21 12.4 [facility] [place] 15:52:00 HEMATOLOGY 2019-01-21 8.9 [facility] [place] 15:52:00 HEMATOLOGY 2019-01-21 211 [facility] [place] nn 15:52:00 HEMATOLOGY 2019-01-21 14.5 [facility] [place] 15:52:00 HEMATOLOGY 2019-01-21 3.93 [facility] [place] 15:52:00 HEMATOLOGY 2019-01-21 7.7 [facility] [place] 15:52:00 HEMATOLOGY 2019-01-21 32.5 [facility] [place] nn 15:52:00 HEMATOLOGY 2019-01-21 15:52:00 Test Item Value Reference Range Interpretation Comme nts MCH (test code = MCH) 31.4 pg 27.0-31.0 Memorial JttojatYVIGVCAHCG7279-92-45 15:52:000.1[facility] HermannHEMATOLOGY 2019-01-21 15:52:000.3[facility] TgtzoenSAQCIJLXBH8868-52-98 15:52:000.4[facility] HawqhtqTQQYXCLGSV8574-36-32 15:52:001.7[facility] SdxidvzNVWYKEIXUT5286-62-42 15:52:000.8[facility] NelfbrpLOQBRXNOPY1819-68-41 15:52:005.2[facility] [place] YULTQHIMDM7089-15-47 15:52:004.3[facility] IdoswplZTDNRNGANG8195-99-74 15:52:00 67.6[facility] DmamnjkIEWNIXFLTO1353-82-58 15:52:005.6[facility] HermannHEMATOLOGY 2019-01-21 15:52:0021.7[facility] PtejrdhDULHHBARERZZ6425-10-10 15:51:79447 [facility] EchkrhhRPJFKTWURIWV2511-89-34 15:51:0022[facility] HermannELECTROLYTES 2019-01-21 15:51:0011.0[facility] WsagnjjNQJABDLWCRKA3122-92-90 15:51:008.8 [facility] ZmswfxaNMDQMBJOOZRF3010-00-28 15:51:63356Fawozxbc HermannELECTROLYTES 2019-01-21 15:51:002.32[facility] HicbqqrJCOLQJLOVHFK5027-86-56 15:51:0063[facility] ZgqyzkoQNOGXBQOGJBU9879-72-55 15:51:005.0[facility] WssuvbyPHEUZPHCMXVT2271-06-95 15:51:57912Swedymxk HermannURINE AND CMYBU1855-23-97 22:14:00Light Yellow *NA*(01/20/19 5:14 PM)[facility] JOKNO8467-03-27 22:14:00 Test Item Value Reference Range Interpretation Comments UA Spec Grav (test code = UA Spec 1.012 1 Grav) [facility] HWDAW7018-16-27 22:14:00 Test Item Value Reference Range Interpretation Comments UA pH (test code = UA pH) 5.0 1 5.0-8.0 [facility] TMGZC3361-94-07 22:14:00Slight *ABN*(01/20/19 5:14 PM) [facility] BVQGC3457-37-16 22:14:001[facility] AND WIOSC1766-30-46 22:14:00Negative (01/20/19 5:14 PM)[facility] YPWUU6655-29-07 22:14:00Negative (01/20/19 5:14 PM)[facility] KCHSH9206-55-92 22:14:00Negative (01/20/19 5:14 PM)[facility] MYBER0216-56-41 22:14:00<1[facility] BTHCY1614-49-29 22:14:00 Negative *NA*(01/20/19 5:14 PM)[facility] HermannCARDIAC ZNCJZQU3996-40-61 15:14:00 <0.02[facility] HermannCARDIAC SFFODWL0921-30-71 10:10:00<0.02[facility] FhcmogyFYWYES6136-81-21 10:10:00 Test Item Value Reference Range Interpretation Comments VLDL (test code = VLDL) 21 1 [facility] GovbjuqGCHCCM4174-34-08 10:10:02893Jnlvtfmg NoowtaaYKBQJN7903-96-04 10:10:0079[facility] JbziyadMCQAQC2219-28-52 10:10:0040[facility] HermannLIPIDS 2019-01-20 10:10:00 Test Item Value Reference Range Interpretation Comments CHD Risk (test code = CHD Risk) 1.98 1 3.90-5.80 [facility] NlablttJOYCML1477-96-05 10:10:0018[facility] HermannCARDIAC ENZYMES 2019-01-20 05:38:00<0.02[facility] HermannCARDIAC PRFPJRB6546-89-17 05:38:0077 [facility]annCARDIAC OMARWOA7049-75-35 05:38:001.8[facility] HermannCARDIAC ZHDOJUN4753-94-90 05:38:07157Dylzwpcl HermannCARDIAC PLUZLKX0177-67-89 05:38:00 Test Item Value Reference Range Interpretation Comments CK MB Index (test code = CK MB Index) 2.3 1 <=2.5 [facility] HermannCHEM MBBKE8498-19-70 05:38:0020[facility] HermannCHEM PANEL 2019-01-20 05:38:0022[facility] HermannCHEM XQSYJ5869-69-62 05:38:003.9[facility] HermannCHEM ZEMKR3311-12-94 05:38:0025[facility] HermannCHEM JEFAJ8446-01-94 05:38:008.9[facility] HermannCHEM UULVJ9401-06-78 05:38:007.2[facility] HermannCHEM YVVYD3027-06-60 05:38:003.3[facility] HermannCHEM JWHBE8658-33-19 05:38:00 Test Item Value Reference Range Interpretation Comments A/G Ratio (test code = A/G Ratio) 1.2 1 0.7-1.6 [facility] HermannCHEM YIKPC3049-86-83 05:38:0021[facility] HermannCHEM PANEL 2019-01-20 05:38:97484Dngjgpyl HermannCHEM FTTMI5235-39-66 05:38:00 Test Item Value Reference Range Interpretation Comments B/C Ratio (test code = B/C Ratio) 29 1 6-25 [facility] HermannCHEM YIIAE3359-25-98 05:38:000.3[facility] HermannCHEM PANEL 2019-01-20 05:38:0012.1[facility] HermannCHEM GSTNN7953-82-27 05:38:0067[facility] HermannCHEM QJIZL4842-19-09 05:38:002.34[facility] HermannCHEM PXMPE3078-76-29 05:38:72081Fyasqmiw HermannCHEM LAGQM8232-69-86 05:38:26355Fxwkpisc HermannCHEM IRMKE9777-21-00 05:38:004.1[facility] HermannCHEM STPGQ2482-23-54 05:38:89093 [facility] YqersptNZMXDDNDSC8503-10-54 05:38:00 Test Item Value Reference Range Interpretation Comments PTT (test code = PTT) 38.0 s 22.9-35.8 [facility] MqswxqnKRHRWKCGMY8253-36-53 05:38:00 Test Item Value Reference Range Interpretation Comments INR (test code = INR) 1.33 1 0.85-1.17 [facility]wGZBXSMLTQD0185-08-18 05:38:00 Test Item Value Reference Range Interpretation Comments PT (test code = PT) 16.2 s 12.0-14.7 [facility] IyjwbgsGYTQSMIPGT2041-35-48 05:38:000.53[facility] HermannHEMATOLOGY 2019-01-20 05:38:008.6[facility] VfpmzkoQWBUUVRUEL9155-88-19 05:38:0032.9[facility] CvvklqcEDPENOSCGY0843-48-06 05:38:0014.7[facility] HenegsqEOEVAJUXNC2017-09-09 05:38:003.79[facility] NhsvwwiCUIZTTLRPO9174-02-99 05:38:0010.9[facility] YZQGSTMSFR2948-21-68 05:38:00 Test Item Value Reference Range Interpretation Comments MCH (test code = MCH) 31.2 pg 27.0-31.0 [facility] TacxsekZCXDSNUSHJ8266-19-34 05:38:0036.0[facility] HermannHEMATOLOGY 2019-01-20 05:38:26365Ngqaziqs WrqcxwbRNUPIITRBZ1580-48-74 05:38:0011.8[facility] AjkrnopFIEZFYWBGP5694-06-90 05:38:0094.9[facility] TjrbbenHSWNZHZMXI5756-87-93 05:38:000.4[facility] ZxmxkarOEQKKFUOBR5608-39-56 05:38:000.6[facility] [place] LVLCJWQBEC5291-64-89 05:38:002.4[facility] EinyngiCIFADPWIFR7692-51-22 05:38:007.4 [facility] ZxygatzJMEQLSBYQZ1184-66-37 05:38:0021.6[facility] HermannHEMATOLOGY 2019-01-20 05:38:0067.5[facility] HqhnamlWNOTHABIXN2272-34-71 05:38:000.1[facility] ElivdhnKXKSAJWLTY5968-15-08 05:38:003.8[facility] DpwftovOEGILDHYFV4980-25-80 05:38:005.9[facility] VijexcjCJPXBKYBDM8563-60-09 05:38:001.2[facility]annURINE AND RKEHT7135-94-99 14:08:00Large *ABN*(10/15/17 9:08 AM)[facility] AND VZFDS8085-37-06 14:08:00 Test Item Value Reference Range Interpretation Comments UA pH (test code = UA pH) 5.0 1 5.0-8.0 [facility] XVIOQ4875-75-28 14:08:00>182[facility]annUR[facility] AND ZOPVN6814-75-79 14:08:00Negative *NA*(10/15/17 9:08 AM)[facility] APUGI0721-30-94 14:08:00Negative (10/15/17 9:08 AM)[facility] RIJNX1232-15-29 14:08:00Large *ABN*(10/15/17 9:08 AM)[facility] AND SKJQI8851-85-47 14:08:14567Hrtopkwo HermannURINE AND LWNBB3410-30-30 14:08:00 Light Yellow *NA*(10/15/17 9:08 AM)[facility] AND XXWRM0350-28-79 14:08:00Marked *ABN*(10/15/17 9:08 AM)[facility] SACBA1376-31-24 14:08:00 Test Item Value Reference Range Interpretation Comments UA Spec Grav (test code = UA Spec 1.005 1 Grav) [facility] HermannCHEM ZAVPL9894-32-77 13:05:0027[facility] HermannCHEM PANEL 2016-09-15 13:05:001.15[facility] HermannCHEM NBODO7743-27-19 13:05:0012.9[facility] HermannCHEM LGUJX0603-43-19 13:05:0038.0[facility] HermannCHEM HGSBG3824-93-68 13:05:0017.0[facility] HermannCHEM IPMBD1315-25-22 13:05:001.8[facility] HermannCHEM IVGFL9386-25-01 13:05:0040[facility] HermannCHEM MTZLA3911-57-82 13:05:71510 [facility] HermannCHEM QQTVQ4938-89-57 13:05:003.7[facility] HermannCHEM PANEL 2016-09-15 13:05:28290Slkznswf HermannCHEM FHWMN1061-09-52 13:05:0026[facility] HermannCHEM GUCWL4548-69-06 13:05:67435Axptutdp HermannCARDIAC UYNYPMW7174-02-45 02:25:00<0.010[facility] HermannSPECIAL EOUQQQOXG2110-37-95 02:25:007.9[facility] HermannCHEM LQSIH3225-13-82 21:10:002.3[facility] HermannCHEM PCXXJ5445-24-57 21:10:002.2[facility] UwksbndQNIVWAUAWAJL9877-91-45 21:10:0011.9[facility] SGBGMMXEQWFH5489-59-83 21:10:001.34[facility] XocelxxGIIQGWMOYAIW7950-61-62 21:10:46239Ztjsoswp BnpoeqmRLYEGMIVCKVO2113-92-98 21:10:57971Ftbiwejq [place] VUDRPSFVWMRZ4269-78-27 21:10:0022[facility] PjblvwzWXDMJACBPEWP6991-20-84 21:10:00 26[facility] WtigawrPAVDLEUXFWCN3461-22-32 21:10:009.2[facility] HermannELECTROLYTES 2016-05-22 21:10:56516Rgfoclam LxmoprzEWKJFTYTOMWV9127-82-94 21:10:003.9[facility] DxzknpmJBEEBARWJIQP9065-81-81 21:10:0039[facility] MalvnpmIEESMYUMNB2034-06-83 21:10:000.3[facility] LarxqgsPBGPZOYYLC7086-32-13 21:10:0012.2[facility] [place] EZMWZEIKHY0682-01-07 21:10:000.5[facility] JjmmapwTFBHRUZSGQ0403-02-10 21:10:000.1 [facility] RuzgjruIVEXVCXPFJ6096-79-39 21:10:0094.7[facility] HermannHEMATOLOGY 2016-05-22 21:10:000.1[facility] GypbimaAOMGXUSRAY3731-67-76 21:10:004.2[facility] QthkgwdFDGMGUHCKR5455-18-88 21:10:000.7[facility] NqsfemcMVOZLNKTEB4070-13-04 21:10:00 Test Item Value Reference Range Interpretation Comments PT (test code = PT) 14.9 s 12.0-14.7 [facility] OcbcgkuBTMQSMLZZC8869-65-70 21:10:001.15[facility] 2016-05-22 21:10:00 Test Item Value Reference Range Interpretation Comments PTT (test code = PTT) 34.4 s 22.9-35.8 [facility] DzcpfcoAMRHNPKHFP9050-79-23 21:10:60381Qswfvuiw HermannHEMATOLOGY 2016-05-22 21:10:008.6[facility] VxsghcwSJRBXWNNVM0247-37-52 21:10:0014.4[facility] QjhuivpPCTCETCHOX6645-25-98 21:10:0033.0[facility] DsdbdnbUEVOHSCVFF5191-17-69 21:10:0093.5[facility] QdtwdpeOPSWSSJQGA1864-65-16 21:10:0034.4[facility] DMZFKSAEQR1404-69-80 21:10:00 Test Item Value Reference Range Interpretation Comments MCH (test code = MCH) 30.9 pg 27.0-31.0 [facility]kXWZEOWJQCR3093-74-24 21:10:0011.4[facility] HermannHEMATOLOGY 2016-05-22 21:10:003.68[facility] YymnhycMKIDURUTHR7722-97-87 21:10:0012.9Meiarial Sampson
== END ==
LOC: DS 10:44
PROVIDERS: ATTEND Nurse Practitioner Family
DX: N63.0 Unspecified lump in unspecified breast (principal)
CPT/HCPCS: 19083; 88305

== ENCOUNTER 2020-01-10 07:12 | Day surgery (SDC) | payer OTHER ==
--- NOTE | 2020-01-08 15:49 | RAD REPORT ---
EXAM DESCRIPTION: RAD - Chest Pa And Lat (2 Views) - 01/08/2020 3:37 pm CLINICAL HISTORY: pre op, pending left breast surgery COMPARISON: Two view chest October 2018 TECHNIQUE: Frontal and lateral views of the chest were obtained. FINDINGS: The lungs are clear. Interstitial markings are similar to comparison. Heart size is cira l and central vasculature is within normal limits. No pleural effusion or pneumothorax seen. No acu te bony finding noted. No aortic abnormality. IMPRESSION: No acute cardiopulmonary process.
[2020-01-08 15:54] LABS: Absolute Lymphocytes (CBC) 2.2 K/uL (0.7-4.9); Basophils % 0.7 % (0-1.3); Hematocrit 38.4 % (36.0-45.0); Lymphocytes % 18.5 % (15.3-44.8); MPV 8.3 fL (7.6-11.3); RBC Red Blood Cell Count 4.03 M/uL (3.86-4.86)
[2020-01-08 16:03] LABS: Potassium 4.7 mmol/L (3.5-5.1)
--- OUTSIDE RECORDS SUMMARY | 2020-01-10 07:14 | XMS REPORT | Clinical Summary ---
:1940 Author Organization [facility] Address [address] [place] [address] Care Team Providers Name Role Phone Cooper [...] 02/05/2019 Refill Pulmonology Ashly Calhoun MD after 01/09/2019 Family History Medical History Relation Name Comments [...] Comments Blood Pressure 128/74 05/21/2019 1:35 PM INDEPENDENT CONSULTANT Pulse 55 05/21/2019 1:35 PM INDEPENDENT CONSULTANT Temperature 36.6 C (97.8 F) 05/21/2019 1:35 PM INDEPENDENT CONSULTANT Respiratory Rate 14 05/21/2019 1:35 PM INDEPENDENT CONSULTANT Oxygen Saturation 98% 05/21/2019 1:35 PM INDEPENDENT CONSULTANT Inhaled Oxygen Concentration - - Weight 123 kg (272 lb) 05/21/2019 1:35 PM INDEPENDENT CONSULTANT Height 167.6 cm (5' 6") 02/05/2019 1:30 PM CDT Body Mass Index 43.9 02/05/2019 1:30 PM CDT Plan of Treatment Health Maintenance Due Date Last Done Comments DIABETIC RETINAL EYE EXAM 1940 DIABETIC FOOT EXAM 1952 URINE MICROALBUMIN 1952 SHINGLES VACCINES (#1) 1992 65+ PNEUMOCOCCAL VACCINE (1 of 2 - PCV13) 2007 INFLUENZA VACCINE 01/25/2020 Results Not on fileafter 01/09/2019 Insurance Payer Benefit Plan / Subscriber ID Effective Dates Phone Addre ss Type Group HUMANA MEDICARE HUMANA MEDICARE xxxxxxxxx 2016-Present PPO PPO/PFFS/ERS MCR Advance Directives For more information, please contact: [phone] Type Date Recorded Patient Barrel Tester Explanati on Advance Directives, Living Will 02/04/2014 2:01 PM and Medical Power of Anhydrous Ammonia Production Supervisor Advance Directives, Living Will 06/29/2016 12:20 PM and Medical Power of Anhydrous Ammonia Production Supervisor Code Status Date Activated Date Inactivated Comments Full Code 02/12/2017 9:41 PM 02/22/2017 5:32 PM Code Status decision reached by: Patient
--- OUTSIDE RECORDS SUMMARY | 2020-01-10 07:19 | XMS REPORT | Summary of Care ---
:1940 Author Organization [facility] [place] Address [address], [address] [place] [address] Care Team Providers Name Role Phone Jovanny Walter Primary Care Physician Encounter [facility] LacyGeorgepaula([facility]) [phone] Date(s): 01/07/20 - 01/07/20 [facility] [place] [address] [place] [address]- [phone] Discharge Disposition: Home or Self Care Attending Physician: Lul Arriaga MD Vital Signs Most recent to oldest [Reference Range]: 1 Height 162.56 cm (01/07/20 2:12 PM) Blood Pressure [90-140/60-90 mmHg] 140/80 mmHg (01/07/20 2:12 PM) Peripheral Pulse Rate [60-100 bpm] 56 bpm *LOW* (01/07/20 2:12 PM) Weight 123.182 kg (01/07/20 2:12 PM) Body Mass Index 46.61 m2 (01/07/20 2:12 PM) Problem List Condition Effective Dates Status Health Status Informant COPD exacerbation(Confirmed) Resolved Atrial fibrillation(Confirmed) Active Acute renal failure(Confirmed)1 Resolved Benign essential hypertension2 Active CAD (coronary artery Active disease)(Confirmed) Diabetes(Confirmed) Resolved Diabetic complication3 05/02/11 Active Diastolic CHF(Confirmed) Active Disorder of refraction AND/OR 10/25/13 Active accommodation4 Hyperlipidemia5 Active Asthma(Confirmed) Resolved Hypertension(Confirmed) Resolved Long-term drug therapy6 01/31/12 Active Heart attack(Confirmed)7 Resolved Morbid obesity(Confirmed) Active Cataract, nuclear(Confirmed) Active Encounter for pre-operative Active cardiovascular clearance(Confirmed) Pseudophakia8 10/25/13 Active 1STAGE #32Data migrated from [employer] on 11/22/14.3Data migrated from [employer] on 11/22/14.4Data migrated from [employer] on 11/22/14.5Data migrated from [employer] on 11/22/14.6Data migrated from [employer] on 11/22/14.7TWO YEARS AGO, TWO [id number] migrated from [employer] on 11/22/14. Allergies, Adverse Reactions, Alerts Substance Reaction Severity Status predniSONE1 Active Macrodantin Active pioglitazone2 Active NKDA Active traMADol3 Active 1Data migrated from [employer] on 10/23/14. Originally documented as PREDNISONE.2Data migrated from [employer] on 10/23/14. Originally documented as ACTOS. [id number] migrated from [employer] on 10/23/14. Originally documented as TRAMADOL. Medications amLODIPine 5 mg oral tablet 5 mg = 1 tab, PO, BID, 0 Refill(s) Start Date: 01/07/20 Status: Ordered Results No data available for this section Immunizations Given and Recorded Vaccine Date Status Refusal Reason Hx influenza vaccine-unspecified1 03/26/12 Given Hx pneumococcal vaccine2 05/22/01 Given pneumococcal 23-valent vaccine3 02/19/01 Given 1Result Comment: 03-26-12. Migrated from OBS ; Data migrated from [employer] on 07/28/2015.2Result Comment: historical. Migrated from OBS ; Data migrated from [employer] on 07/28/2015.3Result Comment: given. Migrated from OBS ; Data migrated from [employer] on 07/28/2015. Procedures Procedure Date Related Diagnosis Body Site Status Bladder operation Completed Breast biopsy and related procedures Completed Cardioversion Completed Cataract surgery Completed Cataract surgery Completed Hysterectomy Completed Knee arthroplasty1 Completed Miscellaneous operations2 Co mpleted Skin operation3 Completed Tonsillectomy Completed 1bilateral in 2006 and [id number] stents [id number] removal. Social History Social History Type Response Alcohol Never Substance Abuse Use: None. Smoking Status Current every day smoker; Ty pe: Cigarettes; Previous treatment: None; Ready to change: Yes; Concerns about tobacco use in household: No; Exposure to Tobacco Smoke None; Cigarette Smoking Last 365 Days Yes; Reg Smoking Cessation Counseling Yes1 entered on: 01/07/20 1Quit since April 2016 Assessment and Plan No data available for this section
--- OUTSIDE RECORDS SUMMARY | 2020-01-10 07:19 | XMS REPORT | Continuity of Care Document ---
:1940 Author Organization [employer] [facility] [employer] Care Team Providers Name Role Phone [employer] [facility] [employer] Unavailable Un available Problems Problem Status Onset Classification Date Comments Sourc e Date Reported SOB, WEAK Active Sugar 019 Land Urinary tract 10/18/2017 Liu gar infection, site not 018 Land specified AFIB/I48.2; HTN, DM Active 017 [facility] PROBABLE PE Active [address] Center Disorder of Active Problem 01/10/2020 Data Medi ricky refraction AND/OR 014 migrated Gr oup, accommodation from [facility] (disorder) [facility] on 11/22/14. [place] [place] Pseudophakia Active Problem 01/10/2020 Data Med ical (disorder) 014 migrated Group, from [facility] on 11/22/14. [place],[facility] [place] Long-term drug Active Problem 01/10/2020 Data [facility] edical therapy (procedure) 012 migrated Group, from [facility] on 11/22/14. [facility] [place] Diabetic Active Problem 01/10/2020 Data Medica l complication 011 migrated Group,[facility] (disorder) from [facility] on 11/22/14. [place],[facility] [place] Acute exacerbation Resolved Problem 01/10/2020 Medical of chronic Group, obstructive airways [place] disease (disorder) edical [facility], [facility] [place] Atrial fibrillation Active Problem 01/10/2020 Medical (disorder) Group,[facility] [place] Acute renal failure Resolved Problem 01/10/2020 STAGE #3 Medical syndrome (disorder) Group,[facility], [facility] [place] Benign essential Active Problem 01/10/2020 Data Medical hypertension migrated Group,[facility] (disorder) from [facility] on 11/22/14. [place],[facility], [facility] [place] Diabetes mellitus Resolved Problem 01/10/2020 [facility] Medical (disorder) Group,[facility], [facility] [place] Hyperlipidemia Active Problem 01/10/2020 Data [facility] edical (disorder) migrated Group, from [facility] on 11/22/14. [place],[facility], [facility] [place] Asthma (disorder) Resolved Problem 01/10/2020 [facility] Medical Group,[facility], [facility] [place] Hypertensive Resolved Problem 01/10/2020 Med ical disorder, systemic Carla bullock, arterial (disorder) [facility] [place] [facility], [facility] [place] Myocardial Resolved Problem 01/10/2020 TWO YEARS Medic al infarction AGO, TWO Group, (disorder) STENT [facility] [place] [facility], [facility] [place] Morbid obesity Active Problem 01/10/2020 [facility] edical (disorder) Group, [place] Nuclear cataract Active Problem 01/10/2020 Medical (disorder) Group,[facility], [facility] [place] Coronary Active Problem 01/10/2020 Medica l arteriosclerosis Mike up, (disorder) Sugar Daniel d Diastolic heart Active Problem 01/10/2020 Medical failure (disorder) Carla bullock [place] Patient encounter Active Problem 01/10/2020 [facility] Medical status (finding) Mike up CHRONIC ATRIAL Active [facility] Medications Medication Details Route Status Patient Ordering Order Source Instructions Provider Date amLODIPine 5 mg 5 mg = 1 tab, Active 01/06/ Medical oral tablet PO, BID, 0 2019 Group Refill(s) rivaroxaban 15 MG 15 mg = 1 tab, Active 02/07/ Medical Oral Tablet PO, Daily, # 90 2019 Grou p [Xarelto] tab, 3 Refill(s), Pharmacy: [id number] levothyroxine 50 50 microgram = Active 01/21/ Sugar mcg (0.05 mg) 1 tab, PO, 2019 [facility] oral tablet Daily, 0 Refill(s) Lisinopril Notes: (Same Inactive 01/21/ Allan dahl as: Prinivil, 2019 [facility] Zestril) Allopurinol Notes: (Same Inactive Sug ar as: Zyloprim) 2019 Land Insulin Glargine Notes: (Same Inactive H Sugar 100 UNT/ML as: Lantus) Do [...] No Longer Sug ar as: Norvasc) Active 2018 Land Aspirin Notes: Take No Longer [place] with food. Active 2018 Land Saline Flush 0.9% Notes: (Same No Longer [place] as: BD Active 2018 Land Posiflush) Protonix Notes: Tablet No Longer [place] should not be Active 2018 Land chewed or crushed. (Same as: Protonix) Ipratropium Notes: SEE RT No Longer S ugar [place] 0.2 MG/ML DOCUMENTATION Active 2018 Land Inhalant Solution (Same as:Atrovent) Synthroid Notes: Take 1 No Longer Sug ar hour before or Active 2018 Land 2 hours after meal; Enteral feeds may interefere with the absorption of this medication.(Fracisco e as:Levothroid, Synthroid) normal saline 500 mL, Rate: Inactive Sugar 0.9% IV 500 mL 50 ml/hr, 2018 Infuse over: 10 hr, Route: IV, Dosing [...] 90 2 puff, Active Sugar mcg/inh INHALATION, 2019 Land inhalation PRN, 0 aerosol with Refill(s) adapter Anoro Ellipta 1 puff, Active Sugar 62.5 mcg-25 mcg INHALER, Daily, 2019 [facility] inhalation powder # 1 ea, 3 Refill(s) Insulin Lispro Notes: (Same Inactive [place] as: Humalog) 2019 Land Roll in palms of hands gently; Do not shake vigorously. WASTE: F/P - Black; E - Municipal Trash Bin Stable for 28 days at room temperature. Expires in days from D ate Dextrose 50% 25 gm, 50 mL, No Longer [place] Syringe Route: IVP, Active 2018 [facility] Drug Form: INJ, Dosing Weight 124.8, kg, PRN, PRN Blood Glucose Results, Start date: 01/20/19 2:30:00 CDT, 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 day, Stop date: 02/19/19 2:29:00 CDT, 0 Glucagon 1 mg, Route: No Longer Sugar IM, Drug form: Active 2018 [facility] PDR/INJ, PRN, Dosing Weight 124.8, kg, PRN Blood Glucose Results, Start date: 01/20/19 2:30:00 CDT, 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 day, Stop date: 02/19/19 2:29:00 CDT, 0 Saline Flush 0.9% Notes: (Same No Longer [place] as: BD Active 2018 [facility] Posiflush) Nitroglycerin Notes: (Same No Longer Sugar as:Nitroquick, Active 2018 Land Nitrostat) "Do Not Crush" Sublingual tablet Aspirin 325 MG Notes: Take Inactive S ugar Oral Tablet with food. 2019 [facility] rivaroxaban 15 MG 15 mg = 1 tab, Active Medical Oral Tablet PO, QPM, # 90 2019 Group [Xarelto] tab, 3 Refill(s), Pharmacy: [facility] [id number] lisinopril 5 mg 5 mg = 1 tab, Active Medical oral tablet PO, Daily, # 90 2019 Grou p tab, 3 Refill(s), Pharmacy: [facility] [id number] atorvastatin 20 20 mg = 1 tab, Active 11/23/ H Medical mg oral tablet PO, QPM, # 90 2019 Mike up tab, 3 Refill(s), Pharmacy: [facility] [id number] amLODIPine 5 mg 5 mg = 1 tab, Active Medical oral tablet PO, Daily, # 90 2019 Grou p tab, 3 Refill(s), Pharmacy: [facility] [id number] rivaroxaban 15 MG 15 mg = 1 tab, Inactive Medical Oral Tablet PO, QPM, 0 2019 Group [Xarelto] Refill(s) lisinopril 5 mg 5 mg = 1 tab, Inactive 11/23/ H Medical oral tablet PO, Daily, # 90 2018 Grou p tab, 3 Refill(s) metoprolol 25 mg 25 mg = 1 tab, Active Medical oral tablet, PO, Daily, # 90 2018 Mike up extended release tab, 3 Refill(s), Pharmacy: [facility] [id number] Alendronic acid 70 mg = 1 tab, [...] MG TAB, Dosing Oral Tablet Weight 124.091, [Planada 5/325] kg, ONCE, STAT, Start date: 10/15/17 9:13:00 CDT, Stop date: 10/15/17 9:13:00 CDT Pyridium Notes: Give Inactive Sugar with meals. 2018 Land (Same as: Pyridium) Furosemide 40 MG 40 mg = 1 tab, Active Medical Oral Tablet PO, BID, # 180 2018 Group tab, 3 Refill(s), Pharmacy: [facility] [id number] Levothyroxine 25 microgram = Active Medical Sodium 0.025 MG 1 tab, PO, 2017 Group Oral Tablet Daily, # 90 [Synthroid] tab, 3 Refill(s), Pharmacy: [facility] [id number] Levothyroxine 25 microgram = Inactive Medical Sodium 0.025 MG 1 tab, PO, 2017 Group Oral Tablet Daily, 0 [Synthroid] Refill(s) Ipratropium 500 microgram = Active M edical [place] 0.2 MG/ML 2.5 mL, NEB, 2017 G [...] 25 MG as: Toprol XL) Active 2016 [facility] Extended Release Do Not Crush Tablet [Toprol] Magnesium Oxide Notes: (Same No Longer H as: Mag-Ox 400) Active 2016 [facility] Magnesium oxide [id number] elemental magnesium Dose=____mg magnesium oxide (___mg elemental magnesium) Humalog Route: SUB-Q, No Longer Daily, Dosing Active 2016 [facility] Weight 117.841, kg, Start date: 09/16/16 9:00:00 CDT, 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 day, Stop date: 10/15/16 9:00:00 CDT Vitamin D3 2000 Notes: Same as No Longer intl units oral : Vitamin D3 Active 2016 [facility] tablet Amiodarone Notes: (Same No Longer as: Cordarone) Active 2016 [facility] Allopurinol Notes: (Same No Longer as: Zyloprim) Active 2016 [facility] Xarelto Notes: (Same Inactive as: Xarelto) 2016 [facility] Administer with food Furosemide 40 MG Notes: (Same Inactive H Oral Tablet as: Lasix) October 2016 [place] cause GI upset. Give with food or milk. atorvastatin Notes: (Same Inactive As: Lipitor) 2016 [facility] AMIODarone 300 mg 300 mg, PO, Active oral tablet Daily, 0 2016 [facility] Refill(s) AMIODarone 200 mg 200 mg = 1 tab, Inactive 09/15 oral tablet PO, BID 2016 [facility] Furosemide 40 MG 40 mg = 1 tab, Active Oral Tablet PO, BID 2016 [facility] magnesium oxide 500 mg = 1 tab, Active 500 mg oral PO, Daily 2016 [facility] tablet metoprolol 25 mg 25 mg = 1 tab, Active oral tablet, PO, Daily 2016 [facility] extended release Humalog 102UNITS, Active SUB-Q, Daily, 2016 [facility] INSULIN PUMP DORINA-FLOW SPRAY DORINA-FLOW SPRAY, Active 1 spray, NASAL, 2016 [facility] t Daily atorvastatin 20 20 mg = 1 tab, Active H mg oral tablet PO, QPM 2016 [facility] allopurinol 300 300 mg = 1 tab, Active mg oral tablet PO, Daily 2016 [facility] Probiotic Formula 1 cap, PO, Inactive oral capsule Daily, 0 2016 [facility] Refill(s) Vitamin D3 2000 2,000 IntlUnit Active intl units oral = 1 tab, PO, 2016 [facility] tablet Daily Switchback-3 oral 1 tab, PO, BID Active capsule 2016 [facility] Benadryl Notes: (Same Inactive as: Benadryl) 2016 [facility] Valium Notes: (Same Inactive as: Valium) 2016 [facility] sodium chloride 1,000 mL, Rate: Inactive 0.45% 1000 ml INJ 100 ml/hr, 2016 [facility] 1,000 mL Infuse over: 10 hr, Route: IV, Dosing Weight 123.409 kg, Total Volume: 1,000, Start date: 09/15/16 7:23:00 CDT, 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 day, Stop date: 10/15/16 7:22:00 CDT Lasix 40 mg, Route: No Longer [facility] IV, Daily, Active 2016 Medical Dosing Weight Center 123.409, kg, 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, 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 day, Stop date: 06/22/16 9:00:00 MUSICAL INSTRUMENT [employer]KER albuterol Notes: Inactive [facility] Albuterol 90 2016 Medical microgram/inh Center 8gm HFA WASTE: Aerosol - Return to Pharmacy Same as: Fernanda Proventil 200 ACTUAT Notes: Inactive [facility] Albuterol 0.09 Albuterol 90 2016 Medi ricky MG/ACTUAT Metered microgram/inh Center Dose Inhaler 8gm HFA WASTE: [ProAir HFA] Aerosol - Return to Pharmacy Same as: Fernanda, Proventil 200 ACTUAT 2 puff, Active [facility] Albuterol 0.09 INHALER, Q6H, 2016 Med ical MG/ACTUAT Metered PRN for Center Dose Inhaler wheezing, # 18 [ProAir HFA] gm, 0 Refill(s) Furosemide 40 MG 40 mg = 1 tab, Active [facility] Oral Tablet PO, Daily, # 30 2016 Medi ricky [Lasix] tab, 0 Center Refill(s) rivaroxaban 20 MG 20 mg = 1 tab, Active [facility] Oral Tablet PO, QPM, # 30 2016 Medica l [Xarelto] tab, 0 Center Refill(s) Lasix Notes: (Same Inactive [facility] as: Lasix) 2016 Medical MEDICATION Center WASTE Product Size: 40 mg Product Wasted: ___ mg Lisinopril Notes: (Same [place]active [place] as: Prinivil, 2016 [facility] Zestril) Center Plavix Notes: (Same Inactive [facility] As: Plavix) 2016 [facility] Aspirin Notes: Do not Inactive [place] crush or chew. 2016 Medical (Same As: Center Ecotrin) metoprolol Notes: (Same [facility] extended [facility] as: Toprol XL) 2016 Medical May split tab, Center but do not crush. atorvastatin Notes: Same as No Longer [place] Lipitor Active 2015 Medical [place] Hydralazine Notes: (Same No Longer [place] as: Apresoline) Active 2015 Medical Push over 5 Center minutes potassium Notes: (Same Inactive [place] phosphate-sodium as: Phos-NaK) 2015 edical phosphate 250 Each 1.5 gm pkt Ce nter mg-280 mg-160 mg has 250mg oral powder for phosphorous. reconstitution Mix w/2.5oz water and stir. heparin sodium, Notes: porcine No Longer [place] porcine 2500 heparin Active 2015 Medical UNT/ML Injectable Center Solution Insulin, Aspart, Notes: Roll in No Longer [place] Human palms of hands Active 2015 Medical gently; Do not Center shake vigorously. (Same as: NovoLOG) "single patient use only" WASTE: F/P - Black; E - Municipal Trash Bin Stable for 28 days at room temperature. 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, 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 day, Stop date: 06/21/16 15:44:00 MUSICAL INSTRUMENT MAKER Albuterol 0.833 Notes: (Same No Longer [facility] MG/ML / as: Duoneb) Active 2015 [facility] Ipratropium [place] 0.167 MG/ML Inhalant Solution [DuoNeb] Insulin Pen Novolog No Longer [place] Independence Active 2015 Medical Misc/Other Center Metformin 500 mg = 1 tab, Active [place] as hydrochloride 500 PO, Daily 2016 Medi ricky MG Oral Tablet Center metoprolol 50 mg 50 mg = 1 tab, Active [place] oral tablet, PO, Daily 2015 [facility] extended release [place] Aspirin 81 MG 81 mg = 1 tab, No Longer H [place] Chewable Tablet PO, Daily Active 2015 [facility] allopurinol 100 100 mg = 1 tab, Active [place] mg oral tablet PO, Daily 2016 [facility] MAGNESIUM 400, PO, Daily Active [facility] GLUCONATE 2015 [facility] non-formulary PO, Daily, Active [facility] OMEGA 3- [address] [place] [address] [id number] [place] OIL (OMEGA-3 FISH OIL) 1000 MG (120 MH-180 MG)CAP, Refill(s) 0 lisinopril 5 mg 5 mg = 1 tab, Active [place] oral tablet PO, Daily 2015 [facility] Furosemide 20 MG 20 mg = 1 tab, No Longer [place] Oral Tablet PO, Daily Active [address] [place] [address] cholecalciferol 2,000 IntlUnit Active [facility] 2000 intl units = 1 cap, PO, 2015 Med ical oral capsule Daily Center atorvastatin 20 20 mg = 1 tab, Active [facility] mg oral tablet PO, Daily 2015 [facility] Colchicine 0.6 MG 0.6 mg = 1 cap, Active [facility] Oral Capsule PO, Daily 2015 [facility] Allergies, Adverse Reactions, Alerts Substance Category Reaction Severity Reaction Status Date Comments S ource type Reported pioglitazone Assertion Drug Active Data MH <sup>2</sup> allergy 2 migrated Me dical from [employer] on 10/23/14. Originally documented as ACTOS. Hives pioglitazone Assertion Drug Active Data MH <sup>1</sup> allergy 2 migrated [place] from [place] on 10/23/14. Originally documented as ACTOS. Hives predniSONE<s Assertion Drug Active Data MH up>1</sup> allergy 4 migrated Medi ricky from [employer] on 10/23/14. Originally documented as PREDNISONE. predniSONE<s Assertion Drug Active Data [place] up>2</sup> allergy 4 migrated [place] from [place] on 10/23/14. Originally documented as PREDNISONE. predniSONE<s Assertion Drug Active Data [place] up>3</sup> allergy 4 migrated Medi ricky from [facility] [employer] on 10/23/14. Originally documented as PREDNISONE. Macrodantin [...] GE Result Med ical vaccine-unspecifi Comment: Moo manley ed<sup>1</sup> 03-26-12. [place] Migrated from Medica l OBS ; Data Center, migrated from [facility] H [place] on 07/28/2015. Land Hx pneumococcal 05/22/2001 completed GE Result Medical vaccine<sup>2</liu Comment: Moo manley p> historical. [place] Migrated from Medica l OBS ; Data Center, migrated from [facility] H [place] on 07/28/2015. [place] pneumococcal 02/19/2001 completed GE Result Med ical 23-valent Comment: Group, vaccine<sup>3</liu given. [place] p> Migrated from Medica l OBS ; Data Center, migrated from [facility] H [place] on 07/28/2015. [facility] Results Order Name Results Value Reference Date Interpretation Comments Leila rce Range ELECTROLYT eGFR 20 01/21 Result Sugar Comment: The [facility] eGFR is calculated using the CKD-EPI [...] Land HEMATOLOGY Hct 38.0 36.0 - 01/21 MH Sugar 48.0 Land HEMATOLOGY Hgb 12.4 12.0 - 01/21 Sugar 16.0 [facility] HEMATOLOGY MPV 8.9 7.4 - 10.4 01/21 [facility] HEMATOLOGY Platelet 211 133 - 450 01/21 MH Land HEMATOLOGY RDW 14.5 11.5 - 01/21 Sugar 14.5 Land HEMATOLOGY RBC 3.93 4.20 - 01/21 Sugar 5.40 Land HEMATOLOGY WBC 7.7 3.7 - 10.4 01/21 MH [place] HEMATOLOGY MCHC 32.5 32.0 - 01/21 MH Sugar 36.0 Land HEMATOLOGY MCH 31.4 27.0 - 01/21 Sugar 31.0 Land HEMATOLOGY Basophils # 0.1 0.0 - 0.2 01/21 MH [place] Land HEMATOLOGY Eosinophils 0.3 0.0 - 0.5 01/21 MH [place] # /2018 Land HEMATOLOGY Monocytes # 0.4 0.0 - 0.8 01/21 MH [place] /2019 Land HEMATOLOGY Lymphocytes 1.7 1.0 - 5.5 01/21 MH [place] # /2018 Land HEMATOLOGY Basophils 0.8 0.0 - 1.0 01/21 MH [place] HEMATOLOGY Neutrophils 5.2 1.5 - 8.1 01/21 S[place] r # /2018 Land HEMATOLOGY Eosinophils 4.3 0.0 - 4.0 01/21 MH [place] Land HEMATOLOGY Segs 67.6 45.0 - 01/21 Sugar 75.0 Land HEMATOLOGY Monocytes 5.6 2.0 - 12.0 01/21 /2018 Land HEMATOLOGY Lymphocytes 21.7 20.0 - 01/21 Sugar 40.0 Land ELECTROLYT Chloride Lvl 105 95 - 109 01/21 [place] Land ELECTROLYT CO2 22 24 - 32 01/21 Sugar Land ELECTROLYT AGAP 11.0 10.0 - 01/21 Sugar ES 20.0 Land ELECTROLYT Calcium Lvl 8.8 8.5 - 10.5 01/21 Sug ar Land ELECTROLYT Glucose Lvl 437 70 - 99 01/21 Result Sugar Comment: [facility] Critical Result(s) called to Sharon Soriano RN at 01/21/2019 11:39 by FN. Read back OK. ELECTROLYT Creatinine 2.32 0.50 - 01/21 Sugar ES Lvl 1.40 Land ELECTROLYT BUN 63 7 - 22 01/21 [place] ELECTROLYT Potassium 5.0 3.5 - 5.1 01/21 Sugar ES Lvl Land ELECTROLYT Sodium Lvl 133 135 - 145 01/21 Sugar Land URINE AND UA <=1.0 0.1 - 1.0 01/20 Sugar STOOL Urobilinogen mg/dL Land URINE AND UA Bacteria Occasional None Seen 01/20 Liu gar STOOL /HPF /HPF /2018 Land URINE AND UA Mucus Few /LPF None Seen 01/20 Sugar STOOL /LPF /2018 Land URINE AND UA Color Light Yellow Yellow 01/20 Sugar STOOL *NA* /2018 [facility] (01/20/19 5:14 PM) URINE AND UA Spec Grav 1.012 <=1.030 01/20 Sugar STOOL /2018 Land URINE AND UA pH 5.0 5.0 - 8.0 01/20 Sugar STOOL /2018 Land URINE AND UA Turbidity Slight Clear 01/20 [place] STOOL *ABN* /2018 [facility] (01/20/19 5:14 PM) URINE AND UA [...] (01/20/19 5:14 PM) Land URINE AND UA Nitrite Negative Negative [...] LIPIDS Trig 103 <=149 01/20 [place] mg/dL /2018 Land LIPIDS Chol 79 <=199 01/20 [place] mg/dL /2018 Land LIPIDS HDL 40 >=61 mg/dL 01/20 [place] Land LIPIDS CHD Risk 1.98 3.90 - 01/20 Sugar 5.80 /2018 Land LIPIDS LDL 18 <=99 mg/dL 01/20 Sugar (Calculated) Land CARDIAC Troponin-I <0.02 0.00 - 01/20 Sugar ENZYMES 0.40 [facility] CARDIAC Total CK 77 12 - 191 01/20 Sugar ENZYMES Land CARDIAC CK MB 1.8 0.5 - 3.6 01/20 Sugar ENZYMES Land CARDIAC BNP 107 <=100 01/20 [place] ENZYMES pg/mL /2018 Land CARDIAC CK MB Index 2.3 0.0 - 2.5 01/20 Sugar ENZYMES Land CHEM PANEL eGFR 01/20 Comment: The Land [...] PANEL ALT 25 0 - 65 01/20 Land CHEM PANEL Calcium Lvl 8.9 8.5 - 10.5 01/20 Sug ar Land CHEM PANEL Total 7.2 6.4 - 8.4 01/20 Sugar Protein Land CHEM PANEL Globulin 3.3 2.7 - 4.2 01/20 Land CHEM PANEL A/G Ratio 1.2 0.7 - 1.6 01/20 Land CHEM PANEL AST 21 0 - 37 01/20 Land CHEM PANEL Alk Phos 137 39 - 136 01/20 Land CHEM PANEL B/C Ratio 29 6 - 25 01/20 Land CHEM PANEL Bili Total 0.3 0.2 - 1.3 01/20 Land CHEM PANEL AGAP 12.1 10.0 - 01/20 Sugar 20.0 Land CHEM PANEL BUN 67 7 - 22 01/20 Land CHEM PANEL Creatinine 2.34 0.50 - 01/20 MH Sugar Lvl 1.40 /2018 Land CHEM PANEL Chloride Lvl 109 95 - 109 01/20 [place] Land CHEM PANEL Sodium Lvl 139 135 - 145 01/20 Land CHEM PANEL Potassium 4.1 3.5 - 5.1 01/20 [place] Lvl /2018 Land CHEM PANEL Glucose Lvl 189 70 - 99 01/20 Land HEMATOLOGY PTT 38.0 22.9 - 01/20 Sugar 35.8 2019 Land HEMATOLOGY INR 1.33 0.85 - 01/20 Sugar 1.17 Land HEMATOLOGY PT 16.2 12.0 - 01/20 Sugar 14.7 /2018 Land HEMATOLOGY D-Dimer 0.53 01/20 Sugar /2018 Land HEMATOLOGY MPV 8.6 7.4 - 10.4 01/20 Sugar /2018 [facility] HEMATOLOGY MCHC 32.9 32.0 - 01/20 [place] 36.0 /2018 Land HEMATOLOGY RDW 14.7 11.5 - 01/20 Sugar 14.5 Land HEMATOLOGY RBC 3.79 4.20 - 01/20 Sugar 5.40 /2018 Land HEMATOLOGY WBC 10.9 3.7 - 10.4 01/20 Sugar [place] HEMATOLOGY MCH 31.2 27.0 - 01/20 [place] 31.0 Land HEMATOLOGY Hct 36.0 36.0 - 01/20 [place] 48.0 Land HEMATOLOGY Platelet 228 133 - 450 01/20 Land HEMATOLOGY Hgb 11.8 12.0 - 01/20 [place] 16.0 Land HEMATOLOGY MCV 94.9 80.0 - 01/20 [...] 0.1 0.0 - 0.2 01/20 [place] Land HEMATOLOGY Eosinophils 3.8 0.0 - 4.0 01/20 [place] /2018 Land HEMATOLOGY Monocytes 5.9 2.0 - 12.0 01/20 [place] /2018 Land HEMATOLOGY Basophils 1.2 0.0 - 1.0 01/20 /2018 Land URINE AND UA Leuk Est Large Negative 10/15 [place] STOOL *ABN* /2017 Land (10/15/17 9:08 AM) URINE AND UA pH 5.0 5.0 - 8.0 10/15 Sugar STOOL Land URINE AND UA WBC >182 0 - 5 10/15 [place] STOOL Land URINE AND UA Sq Epi Occasional Few /LPF 10/15 [place] STOOL /LPF Land URINE AND UA Bili Negative Negative 10/15 Sugar STOOL *NA* Land (10/15/17 9:08 AM) URINE AND UA Ketones Negative Negative 10/15 [place] STOOL mg/dL mg/dL Land URINE AND UA Nitrite Negative Negative 10/15 [place] STOOL (10/15/17 9:08 AM) Land URINE AND UA Blood Large Negative 10/15 [place] STOOL *ABN* [facility] (10/15/17 9:08 AM) URINE AND UA Bacteria Moderate None Seen 10/15 [place] STOOL /HPF /HPF Land URINE AND UA Mucus Few /LPF None Seen 10/15 [place] STOOL /LPF Land URINE AND UA RBC 130 0 - 2 10/15 Sugar STOOL Land URINE AND UA Color Light Yellow Yellow 10/15 [place] STOOL *NA* [facility] (10/15/17 9:08 AM) URINE AND UA Glucose Negative Negative 10/15 [place] STOOL mg/dL mg/dL Land URINE AND UA Protein Negative Negative 10/15 [place] STOOL mg/dL mg/dL Land URINE AND UA Turbidity Marked Clear 10/15 [place] STOOL *ABN* [facility] (10/15/17 9:08 AM) URINE AND UA Spec Grav 1.005 <=1.030 10/15 Sugar STOOL Land URINE AND UA <=1.0 0.1 - 1.0 10/15 [place] STOOL Urobilinogen mg/dL [facility] CHEM PANEL eGFR 27 09/15 Comment: [facility] eGFR is calculated using the CKD-EPI [...] POC Ion Ca 1.15 1.05 - 09/15 MH 1.25 [facility] CHEM PANEL POC 12.9 12.0 - 09/15 Hemoglobin 16.0 [facility] CHEM PANEL POC 38.0 36.0 - 09/15 Hematocrit 48.0 /2016 [facility] CHEM PANEL POC AGAP 17.0 10.0 - 09/15 MH 20.0 [facility] CHEM PANEL POC 1.8 0.5 - 1.4 09/15 Creatinine [facility] CHEM PANEL POC BUN 40 7 - 22 09/15 [facility] CHEM PANEL POC Glucose 215 70 - 99 09/15 [facility] CHEM PANEL POC 3.7 3.5 - 5.1 09/15 Potassium [facility] CHEM PANEL POC Chloride 102 95 - 109 09/15 [facility] CHEM PANEL POC Carbon 26 24 - 32 09/15 Dioxide [facility] CHEM PANEL POC Sodium 140 135 - 145 09/15 [facility] CARDIAC Troponin-T <0.010 0.000 - 05/23 [facility] ENZYMES 0.100 [facility] SPECIAL Hgb A1C 7.9 <=5.6 % 05/23 [facility] CHEMISTRY [facility] CHEM PANEL Magnesium 2.3 1.8 - 2.4 05/[address] [place] [address] [facility] CHEM PANEL Phosphorus 2.2 2.5 - 4.5 05/22 [facility] ELECTROLYT AGAP 11.9 10.0 - 05/[address] [place] [address] [facility] ELECTROLYT Creatinine 1.34 0.50 - 05/22 [facility] ES Lvl 1.40 /2015 [facility] ELECTROLYT Sodium Lvl 144 135 - 145 05/22 [facility] ES [facility] ELECTROLYT Glucose Lvl 132 70 - 99 05/22 [facility] ES [facility] ELECTROLYT BUN 22 7 - 22 05/22 [facility] ES [facility] ELECTROLYT CO2 26 24 - 32 05/[address] [facility] ELECTROLYT Calcium Lvl 9.2 8.5 - 10.5 05/[address] [facility] ELECTROLYT Chloride Lvl 110 95 - 109 05/[address] [place] [address] [facility] ELECTROLYT Potassium 3.9 3.5 - 5.1 05/22 [facility] ES Lvl [facility] ELECTROLYT eGFR 39 05/22 Result [facility] Comment: The Medical eGFR is Center calculated [...] HEMATOLOGY Basophils 0.3 0.0 - 1.0 05/22 [facility] HEMATOLOGY Segs-Bands # 12.2 1.5 - 8.1 05/22 [facility] HEMATOLOGY Lymphocytes 0.5 1.0 - 5.5 05[place]22 [place] /2015 [facility] HEMATOLOGY Monocytes # 0.1 0.0 - 0.8 05/[address] [facility] HEMATOLOGY Segs 94.7 45.0 - 05/[address] [place] [address] [facility] HEMATOLOGY Eosinophils 0.1 0.0 - 4.0 05/[address] [facility] HEMATOLOGY Lymphocytes 4.2 20.0 - 05/[address] [place] [address] [facility] HEMATOLOGY Monocytes 0.7 2.0 - 12.0 05/22 [facility] HEMATOLOGY PT 14.9 12.0 - 05/[address] [place] [address] [facility] HEMATOLOGY INR 1.15 0.85 - 05/[address] [place] [address] [facility] HEMATOLOGY PTT 34.4 22.9 - 05/22 [place] 35.8 /2015 [facility] HEMATOLOGY Platelet 237 133 - 450 05/22 [facility] HEMATOLOGY MPV 8.6 7.4 - 10.4 05/22 [facility] HEMATOLOGY RDW 14.4 11.5 - 05/22 [facility] 14.5 [facility] HEMATOLOGY MCHC 33.0 32.0 - 05/22 [facility] 36.0 /2015 [facility] HEMATOLOGY MCV 93.5 80.0 - 05/22 [facility] 98.0 /2015 [facility] HEMATOLOGY Hct 34.4 36.0 - 05/22 [place] 48.0 /2015 [facility] HEMATOLOGY MCH 30.9 27.0 - 05/22 [facility] 31.0 [facility] HEMATOLOGY Hgb 11.4 12.0 - 05/22 [facility] 16.0 /2015 [facility] HEMATOLOGY RBC 3.68 4.20 - 05/22 [facility] 5.40 /2015 [facility] HEMATOLOGY WBC 12.9 3.7 - 10.4 05/22 [facility] Pathology Reports No Data Provided for This Section Diagnostic Reports Report Value Date Source Chest 1view DX Clinical History : , - chest pain 01/20/2019 [place] Exam : Portable AP view of the [...] disease (stable appeari ng chest). Lung EXAM: NM Pulmonary Ventilation and Perfusion Alejandrina ging 05/22/2016 [facility] Medical ventilation/perfusio DATE: 05/22/2016 2:49 PM [facility]ICAL [employer] Center n scan NM INDICATION: Dyspnea on [...] Value Date Comments Source Systolic (mm Hg) 140 01/07/2020 [facility] Diastolic (mm Hg) 80 01/07/2020 [facility] Heart Rate 56 01/07/2020 [facility] Height 162.56 cm 01/07/2020 [facility] Weight 123.182 01/07/2020 [facility] BMI Calculated 46.61 01/07/2020 [facility] Systolic (mm Hg) 146 05/31/2019 [facility] [...] [place] Rate 18 01/21/2019 [place] Heart Rate 57 01/21/2019 [facility] [place] Systolic (mm Hg) 122 01/21/2019 [facility] [place] Diastolic (mm Hg) 78 01/21/2019 [facility] [place] Respitory Rate 18 01/21/2019 [place] Heart Rate 60 01/21/2019 [place] Temperature Oral (F) 97.8 F 01/21/2019 [place] Systolic (mm Hg) 116 01/21/2019 [facility] [place] Diastolic (mm Hg) 54 01/21/2019 [facility] [place] Respitory Rate 18 01/21/2019 [place] Heart Rate 53 01/21/2019 [place] Temperature Oral (F) 97.5 F 01/21/2019 [place] Weight 125.455 01/20/2019 [place] BMI Calculated 44.64 01/20/2019 [place] Height 167.64 cm 01/20/2019 [facility] [place] Weight 124.8 01/20/2019 [facility] [place] Weight 123.636 11/23/2018 [facility] BMI [...] [place] Rate 18 10/15/2017 [place] Heart Rate 63 10/15/2017 [place] Systolic (mm Hg) 130 10/15/2017 [place] Diastolic (mm Hg) 73 10/15/2017 [place] BMI Calculated 44.16 10/15/2017 [place] Weight 124.091 10/15/2017 [place] Heart Rate 63 10/15/2017 [place] Respitory Rate 18 10/15/2017 [place] Systolic (mm Hg) 163 10/15/2017 [place] Diastolic (mm Hg) 64 10/15/2017 [place] Temperature Oral (F) 97.5 F 10/15/2017 [place] Height 167.64 cm 10/15/2017 [place] BMI Calculated 43.33 08/18/2017 [facility] [...] 06/09/2017 [facility] BMI Calculated 41.93 09/15/2016 [facility] Height 167.64 cm 09/15/2016 [facility] Weight 117.841 09/15/2016 [facility] Systolic (mm Hg) 167 09/15/2016 [facility] Diastolic (mm Hg) 53 09/15/2016 [facility] Respitory Rate 17 09/15/2016 [facility] Heart Rate 57 09/15/2016 [facility] Systolic (mm Hg) 169 05/24/2016 [facility] Diastolic (mm Hg) 72 [facility]/24[facility] 18 05/24/2016 [facility] Heart Rate 50 05/24/2016 [facility] Temperature Oral (F) 97.2 F 05/24/2016 [facility] Systolic (mm Hg) 159 05/23/2016 [facility] Diastolic (mm Hg) 66 05/23/2016 [facility] Heart Rate 56 05/23/2016 [facility] Respitory Rate 18 05/23/2016 [facility] Center Temperature Oral (F) 97.8 F 05/23/2016 [facility] Respitory Rate 18 05/23/2016 [facility] Center Temperature Oral (F) 97.1 F 05/23/2016 [facility] Systolic (mm Hg) 139 05/23/2016 [facility] Diastolic (mm Hg) 92 05/23/2016 [facility] Heart Rate 64 05/23/2016 [facility] Weight 123.409 05/22/2016 [facility] BMI Calculated 43.91 05/22/2016 [facility] Height 167.64 cm 05/22/2016 [facility] Encounters Location Location Encounter Encounter Reason Attending ADM DC Stat us Source Details Type Number For Provider Date Date Visit Outpatient [id number] [facility]03 [facility] Observation [id number] Mohamed 05/22 05/24 [facility] 2 Kwan /2015 [facility] Bedded [id number] Lan 09/15 09/15 [place] Outpatient 0 [facility] Outpatient [id number] SARY 12/06 [facility] [place] [facility] [id number] [facility]AR[place] 06[facility]09 [id number] [place] 06/09 06/10 Cardiology 2 [facility] [place] [facility] Outpatient [id number] ECHO VISIT 07/14 [facility] Ambulatory [id number] NURSE 07/14 07/14 M [facility] Cardiology Pre-Reg 3 VISIT /2017 [facility] [place] [facility] Outpatient [id number] ECHO VISIT 07/21 [facility] [place] Out[facility] [id number] GARRETT 07/21 [facility] [id number] NURSE 07/21 07/22 M H Cardiology 4 VISIT /2017 Medica l [place] [facility] Outpatient [id number] [place] 07/21 07/22 Cardiology 5 [facility] [place] [facility] Outpatient [id number] GARRETT 08/18 Active [facility] 6 [place] [facility] Outpatient [id number] [place] 08/18 08/19 Cardiology 6 [place] [facility] [place] [facility] [id number] Rhett Reyes 10/15 10/15 [place] [facility]patient [id number] GARRETT 11/17 [facility] 7 [facility] Outpatient [id number] [place] 11/17 11/18 MH Cardiology 7 [facility]i [facility] [place] [facility] Outpatient [id number] G[place] 05/11 Active [facility] 8 [place] [facility] Ambulatory [id number] [place] 05/11 05/11 Cardiology Pre-Reg 8 Med ical [place] [facility] Outpatient [id number] G[place]TT 06/21 Active [facility] 9 [place] [facility] [id number] [facility] 06/21 06/21 Cardiology Pre-Reg [facility] Outpatient [id number] [place]TT 09/05 Active [facility] 1 [place] [facility] Outpatient [id number] [place] 09/05 09/06 Cardiology 1 [facility] Outpatient [id number] G[place]TT 09/07 [facility] 0 [place] [facility] [id number] [place] 09/07 09/07 Cardiology Pre-Reg 0 [facility] Med ical [place] [facility] Outpatient [id number] [place] 11/23 Active [facility] 2 [place] [facility] Outpatient [id number] [place] 11/23 11/24 Cardiology 2 [facility] [place] [facility] Observation [id number] [facility] 01/20 01/21 [facility] [place] Outpatient [id number] [place] 05/31 Active [facility] 3 [place] [facility] Outpatient [id number] [place] 05/31 06/01 MH Cardiology 3 [place] [facility] [place] [facility] Outpatient [id number] [place] 09/26 [facility] 4 [place] Outpatient [id number] Lul 01/06 Active [facility] 6 [place] [facility] [facility] Outpatient [id number] Lul 01/06 01/07 M H Cardiology 6 [place] [facility]i [facility] [place] [facility] Outpatient [id number] Majid 01/16 Active [facility] 5 Shahram [place] Outpatient [id number] [facility] 07/03 Active M geovany 7 [place] Procedures Procedure Code Date Perfomer Comments Source Bladder operation [id number] [facility] [place] Cardioversion [id number] Medical [facility] [place] Cataract surgery [id number] Medic al Group,[facility] [place] Hysterectomy [id number] Medical Group,[facility] [place] Knee [id number] bilateral in Medical arthroplasty<sup>1< 2006 and 2007 Gr oup, /sup> [facility], [place] Tonsillectomy [id number] Medical Group,[facility] [place] Breast biopsy and [id number] [facility] related procedures Group, [place] Miscellaneous [id number] heart stents x2 Med ical operations<sup>2</s Group , up> [place] Skin [id number] skin removal. Medical operation<sup>3</liu Group , p> [place] Assessment and Plan Assessment and Plan Date Source Extracted from:Title: Discharge Summary * 01/21/2019 [place] Author: Franco Estrada DO Date: 01/21/19 Discharge [...] Extracted from:Title: Clinical Document Author: Madisyn Powell PRINCIPAL PROGRAMMER Date: 01/20/19 Paged by nurse with c/o patient having c ouple loose bowel movements with very strong smell. and Streaks of blood noted in the stool as well with no signs of hemorrhoids. Will check stool for C. difficile and occult blood. D/w Dr Tam. Extracted from:Title: Clinical Document Author: Madisyn Powell PRINCIPAL PROGRAMMER Date: 01/20/19 History and Physical Code Status [...] Comment(s): Quit since April 2016 ( smoked [employer] to [facility] ED) Substance Abuse Details: Use: [...] Daily DORINA-FLOW SPRAY 1 spray, NASAL, Daily Switchback-3 oral capsule 1 tab, PO, BID Synthroid [...] fib with rate control-on amiodarone following cardiol ogchristy Starr 5. Hypertensionresume home medication 6. Diabetes [...] Extracted from:Title: Hospitalist History and Physical 05/24 [facility] Author: Prince Kalani Patel MD [...] Beta evelin andACE-i Ordered: Admit/Condition 4.Atrial fibrillation [id number] -PLAN: 2-D Echo.Will discussabout AC for CVA [...] entered on: 01/07/20 1Quit since April 2016 Social History TypeResponse 05/22/2016 [facility] Substance Abuse Use: None. Alcohol Never Smoking Status Former smoker; Type: Cigarettes; Previou s treatment: None; Ready to change: Yes; Concerns about tobacco use in household: No; Exposure to Tobacco Smoke None; Cigarette Smoking Last 365 Days Yes; Reg Smoking Cessation Counseling Yes1 1Quit since April 2016 Social History TypeResponse 05/22/2016 [facility] Substance Abuse Use: None. Alcohol Never Smoking [...]
--- OUTSIDE RECORDS SUMMARY | 2020-01-10 07:22 | XMS REPORT | Continuity of Care Document ---
:[address] [facility] t Address [address] [place] [address] [address]. [address] [place] [address] Care Team Providers Name Role Phone Jose Angel NICOLE, Manfredluz Molina Primary Care Physician [phone] Khoa Arriaga Attending Clinician Aamir Escalona MD Attending Clinician Only, Test Attending Clinician Unavailable Yoko NICOLE Attending Clinician Kolton Starr Attending Clinician Yonatan Attending Clinician Kate Reyes Attending Clinician VISIT, CSL ECHO Attending Clinician Unavailable Franc Attending Clinician aMdison Mckeon Attending Clinician Iqra NICOLE C Admitting Clinician Yonatan Admitting Clinician Ranjit Kwan Admitting Clinician Payers Payer Name Policy Type Policy Number Effective Date Expiration Source Date HUMANA xxxxxxxxx 2016 [place] MEDICAREHUMANA 00:00:00 [place] MEDICARE PPO/PFFS/ERS [id number]/ [id number] Problems Condition Condition Condition Status Onset Resolution Last Treating Co mments Source Name Details Category Date Date Treatment Clinician Date Tobacco Tobacco Disease Active 2018-06 [place] abuse abuse - Methodi 00:00: st 00 SOB, WEAK Diagnosis Active 2019-01-21 Memoria 01-19 10:07:00 l SOB, 12:00: [place] WEAK 00 Active 01/19/2019 [place] Intermitte Intermitte Disease Active 2016-06 [place] nt asthma nt asthma 2-12 Meth yaakov 00:00: st 00 COPD COPD Disease Active 2016-06 Mondamin (chronic (chronic 2-12 Method i obstructiv obstructiv 00:00: st e e 00 pulmonary pulmonary disease) disease) with acute with acute bronchitis bronchitis SASCHA SASCHA Disease Active 2016-06 [place] (obstructi (obstructi 2-12 Me thodi ve sleep ve sleep 00:00: st apnea) apnea) 00 Dyspnea Dyspnea Disease Active 2016-06 Mondamin 2-12 Methodi 00:00: st 00 CHF CHF Disease Active Mond[place] (congestiv (congestiv 8-20 Me thodi e heart e heart 00:00: st failure) failure) 00 Essential Essential Disease Active Loreto ston hypertensi hypertensi 8-20 Me thodi on on 00:00: st 00 Type 2 Type 2 Disease Active Mond[place] diabetes diabetes 8-20 Method i mellitus mellitus 00:00: st 00 Gout Gout Disease Active Mondamin 8-20 Methodi 00:00: st 00 AFIB/I48.2 Diagnosis Active 2016-09-15 Memoria ; HTN, DM 3-22 10:17:00 l 00:00: [place] AFIB/I48.2 00 ; HTN, DM Active 09/14/2016 [facility] PROBABLE Diagnosis Active 2015-062016-05-27 M emoria PE - 22:04:00 l PROBABLE 00:00: Stewart n PE 00 Active 6 [facility] Disorder Problem Active 2020-01-10 Mem oria of 10-25 00:25:25 l refraction Disorder 00:00: He rmann AND/OR of 00 accommodat refraction ion AND/OR (disorder) accommodat ion (disorder) Active 10/25/2013 Problem 01/10/2020 Data migrated from [employer] on 11/22/14. [facility] [place] Pseudophak Problem Active 2020-01-10 M emoria ia 10-25 00:25:25 l (disorder) 00:00: Stewart n Pseudophak 00 ia (disorder) Active 10/25/2013 Problem 01/10/2020 Data migrated from [employer] [place] on 11/22/14. [facility] [place] Long-term Problem Active 2020-01-10 Me moria drug 01-30 00:25:25 l therapy 00:00: Sampson (procedure Long-term 00 ) drug therapy (procedure ) Active 01/31/2012 Problem 01/10/2020 Data migrated from [employer] on 11/22/14. [facility] Diabetic Problem Active 2010-062020-01-10 Mem oria complicati 07-02 00:25:25 l on Diabetic 00:00: Stewart n (disorder) complicati 00 on (disorder) Active 05/02/2011 Problem 01/10/2020 Data migrated from [employer] on 11/22/14. [facility] Acute Problem Resolve 2020-01-10 Shady cordelia exacerbati d 00:25:25 l on of Acute [place]pson chronic exacerbati obstructiv on of e airways chronic disease obstructiv (disorder) e airways disease (disorder) Resolved Problem 01/10/2020 [facility] [place] Acute Problem Resolve 2020-01-10 Shady cordelia renal d 00:25:25 l failure Acute Sampson syndrome renal (disorder) failure syndrome (disorder) Resolved Problem 01/10/2020 STAGE #3 Medical [facility] [place] Diabetes Problem Resolve 2020-01-10 Me moria mellitus d 00:25:25 l (disorder) Diabetes He rmann mellitus (disorder) Resolved Problem 01/10/2020 [facility] [place] Asthma Problem Resolve 2020-01-10 Shady cordelia (disorder) d 00:25:25 l Asthma [place] (disorder) Resolved Problem 01/10/2020 [facility] [place] Hypertensi Problem Resolve 2020-01-10 Memoria ve d 00:25:25 l disorder, [place] systemic Hypertensi arterial ve (disorder) disorder, systemic arterial (disorder) Resolved Problem 01/10/2020 [facility] Myocardial Problem Resolve 2020-01-10 Memoria infarction d 00:25:25 l (disorder) Stewart n Myocardial infarction (disorder) Resolved Problem 01/10/2020 TWO YEARS AGO, TWO STENT [facility] Atrial Problem Active 2020-01-10 Memor ia fibrillati 00:25:25 l on Atrial [place] (disorder) fibrillati on (disorder) Active Problem 01/10/2020 [facility] Benign Problem Active 2020-01-10 Memor ia essential 00:25:25 l hypertensi Benign Herm andrew on essential (disorder) hypertensi on (disorder) Active Problem 01/10/2020 Data migrated from [employer] [place] on 11/22/14. [facility] Hyperlipid Problem Active 2020-01-10 M emoria emia 00:25:25 l (disorder) Stewart n Hyperlipid emia (disorder) Active Problem 01/10/2020 Data migrated from [employer] [place] on 11/22/14. [facility] Morbid Problem Active 2020-01-10 Memor ia obesity 00:25:25 l (disorder) Morbid Herm andrew obesity (disorder) Active Problem 01/10/2020 Medical [facility] Nuclear Problem Active 2020-01-10 Shady cordelia cataract 00:25:25 l (disorder) Nuclear [place] cataract (disorder) Active Problem 01/10/2020 [facility] [place] Coronary Problem Active 2020-01-10 Mem oria arterioscl 00:25:25 l erosis Coronary Stewart n (disorder) arterioscl erosis (disorder) Active Problem 01/10/2020 Medical [facility] Diastolic Problem Active 2020-01-10 Me moria heart 00:25:25 l failure [place] (disorder) Diastolic heart failure (disorder) Active Problem 01/10/2020 Medical [facility] [place] Patient Problem Active 2020-01-10 Shady cordelia encounter 00:25:25 l status Patient Sampson (finding) encounter status (finding) Active Problem 01/10/2020 Medical Group CHRONIC Diagnosis Active 2016-09-15 Me mclain ATRIAL 10:17:00 l FIBRILLATI CHRONIC Her [place] ON ATRIAL FIBRILLATI ON Active [place] Urinary Problem 2017-2017-10-18 2017-10-18 Memoria tract -22 01:10:00 01:10:00 l infection, Urinary 05:00: Her [place] site not tract 00 specified infection, site not specified 10/15/2017 10/18/2017 [place] Allergies, Adverse Reactions, Alerts Allergy Allergy Status Severity Reaction(s) Onset Inactive Treating Comm ents Source Name Type Date Date Clinician Francia Juanensi Active Hives [place] ty to 06-29 Methodi adverse 00:00: st reaction 00 s to drug Nitrofur Propensi Active Anaphylaxis [place] antoin ty to 06-29 Methodi Macrocry adverse 00:00: st stal reaction 00 s to drug Predniso Propensi Active Other (See [place] ne ty to Comments) 06-29 Methodi adverse 00:00: st reaction 00 s to drug Tramadol Propensi Active Swelling [place] ty to 06-29 Methodi adverse 00:00: st reaction 00 s to drug predniSO predniSO Active Memori a NE<sup>3 NE<sup>3 5-02 l </sup> </sup> 05:00: [place] 00 pioglita pioglita Active Memori a zone<sup [...] Stop Date Source Natural father Heart attack Mondamin [place]oodoo Natural father Prostate cancer [place] Natural mother Heart disease Mondamin Voodoo Natural mother Hypertension Marcus Voodoo Social History Social Habit Start Date Stop Date Quantity Comments Source Sex Assigned At Mondamin M ethodist Alcohol intake 2019-11-26 2019-11-26 Current [facility] thodist 00:00:00 00:00:00 non-drinker of alcohol (finding) Social History 2016-05-22 2016-05-22 [facility] Rene strickland 20:05:58 20:05:58 Smoking Status Start Date Stop Date Source Former smoker 2019-11-26 00:00:00 2019-11-26 00:00:00 Amrit Moffett Medications Ordered Filled Start Stop Current Ordering Indication Dosage Frequency Signature Comments Components Source Medication Medication Date Date Medication? Clinician (SIG) Name Name amLODIPine Yes 5 mg = 1 Mem oria 5 mg oral 7-14 tab, PO, l tablet 19:15: BID, 0 Sampson 00 Refill(s) albuterol 2019- No 2{puff} Q6H Inhale 2 Mondamin (ProAir 11-25 07-02 puffs Methodi HFA) 90 00:00: 23:59 every [...] Take 5 mg [place] (NORVASC) 5 26 by mouth Meth yaakov mg tablet 13:32: daily. st 59 furosemide 2018-06 Yes 40mg QD Take 40 mg [place] (LASIX) 40 07-21 by mouth Metho di mg tablet 13:32: [...] capsule capsule guaiFENesin 2018-06 2019- No 200mg [id number] Take 10 mL Marcus (ROBITUSSIN - 12 [id number] (200 mg Methodi ) 100 mg/5 00:00: 23:59 3D total) by s t mL syrup 00 :00 mouth 3 (three) times a day as needed for cough for up to 30 days. rivaroxaban Yes 15 mg = 1 M emoria 15 MG Oral 8-15 tab, PO, l Tablet 19:09: Daily, # Sampson [Xarelto] 00 90 tab, 3 Refill(s), Pharmacy: [id number] fluticasone Yes USE 1 [place] propionate [...] 0 Refill(s) Lisinopril No Notes: Memor ia 7-29 (Same as: l 15:00: Prinivil, Zestril) Allopurinol No Notes: Shady cordelia 7-29 (Same as: l 15:00: Zyloprim) Insulin No Notes: Memoria Glargine 7-29 (Same as: l 100 UNT/ML 14:35: Lantus) Do H [place] Injectable not hold Solution insulin [Lantus] without contacting prescriber WASTE: F/P - Black; E - Municipal Trash Bin "single patient use only" Stable for 28 days at room temperatur e Expires in days from ____Date Insulin No Notes: Memoria Lispro 7-29 (Same as: l 05:30: Humalog) Roll in [...] 01-21 Route: IM, l 05:30: Drug form: [place] 00 PDR/INJ, PRN, Dosing Weight 125.455, kg, PRN Blood Glucose Results, Start date: 01/21/19 0:30:00 CDT, 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 day, Stop date: 02/20/19 0:29:00 CDT, 0 Insulin No Notes: Memoria Lispro 01-21 (Same as: l 05:01: Humalog) Roll in palms of hands gently; Do not shake vigorously . WASTE: F/P - Black; E - Municipal Trash Bin Stable for 28 days at room temperatur e. Expires in days from ____Date atorvastati No Notes: Shady cordelia n 01-20 (Same As: l 22:00: Lipitor) Xarelto No Notes: Memoria 7-28 (Same as: l 22:00: Xarelto) Administer with food Amlodipine No Notes: Memor ia 01-20 (Same as: l 14:00: Norvasc) Aspirin No Notes: Memoria 7-28 Take with l 14:00: food. Saline No Notes: Memoria Flush 0.9% 01-20 (Same as: l 14:00: BD Posiflush) Protonix No Notes: Memoria 7-28 Tablet l 12:30: should not be chewed or crushed. (Same as: Protonix) Ipratropium No Notes: SEE Memoria Noonan 0.2 -28 RT l MG/ML 12:00: DOCUMENTAT Stewart n Inhalant 00 ION (Same Solution as:Atroven t) Synthroid No Notes: Memori a 7-28 Take 1 l 11:30: hour [place] 00 before or 2 hours after meal; [...] 01-20 not exceed l 07:39: 4 gm/day. Sampson 00 (Same as: Tylenol) Aspirin Yes 81 mg, PO, Shady cordelia 01-20 Daily, 0 l 07:36: Refill(s) allopurinol Yes 100 mg = 1 Memoria 100 mg oral 01-20 tab, PO, l tablet 07:36: Daily, 0 [place] 00 Refill(s) Levothyroxi Yes 50 Memori a ne [...] l 62.5 mcg-25 07:36: Daily, # 1 [place] mcg 00 ea, 3 inhalation Refill(s) powder Insulin No Notes: Memoria Lispro 01-20 (Same as: l 07:30: Humalog) Roll in palms of hands gently; Do not shake vigorously . WASTE: F/P - Black; E - Municipal Trash Bin Stable for 28 days at room temperatur e. Expires in days from ____Date Dextrose 2019-0 No 25 gm, 50 Shady cordelia 50% Syringe 01-20 mL, Route: l 07:30: IVP, Drug Form: [...] n [Xarelto] 00 tab, 3 Refill(s), [facility] [id number] lisinopril Yes 5 mg = 1 Mem oria 5 mg oral 5-31 tab, PO, l tablet 18:48: Daily, # [place] 00 90 tab, 3 Refill(s), Pharmacy: [facility] [id number] atorvastati Yes 20 mg = 1 M emoria n 20 mg 5-31 tab, PO, l oral tablet 18:47: QPM, # 90 H [place] 00 tab, 3 Refill(s), [facility] amLODIPine Yes 5 mg = 1 Mem oria 5 mg oral 5-31 tab, PO, l tablet 18:46: Daily, # Sampson 00 90 tab, 3 Refill(s), Pharmacy: [facility] [place] [id number] rivaroxaban No 15 mg = 1 M emoria 15 MG Oral 5-31 tab, PO, l Tablet 18:42: QPM, 0 [place] [Xarelto] 00 Refill(s) lisinopril No 5 mg = 1 Mem oria 5 mg oral 5-31 tab, PO, l tablet 18:42: Daily, # [place]pson 00 90 tab, 3 Refill(s) metoprolol Yes 25 mg = 1 Me moria 25 mg oral 5-31 tab, PO, l tablet, 18:37: Daily, # Stewart n extended 00 90 tab, 3 release Refill(s), Pharmacy: [facility] [place] [id number] Alendronic Yes 70 mg = 1 Me moria acid 70 MG 5-31 tab, PO, 0 l Oral Tablet 18:33: Refill(s) H ermann 00 metoprolol Yes TK 1 T PO Ho [...] tab, Shady cordelia en 325 MG / 10-15 Route: PO, l Hydrocodone 14:13: Drug Form: Sam[place] Bitartrate 00 TAB, 5 MG Oral Dosing Tablet Weight [[place] 124.091, 5/325] kg, ONCE, STAT, Start date: 10/15/17 9:13:00 CDT, Stop date: 10/15/17 9:13:00 CDT Pyridium No Notes: Memoria 10-15 Give with l 14:12: meals. [place] 00 (Same as: Pyridium) Furosemide Yes 40 mg = 1 Me moria 40 MG Oral 1-26 tab, PO, l Tablet 17:16: BID, # 180 Beronica nn 00 tab, 3 Refill(s), Pharmacy: [facility] Levothyroxi 2016-06 Yes 25 Memori a ne Sodium 2-15 microgram l 0.025 MG 17:43: = 1 tab, Beronica nn Oral Tablet 00 PO, Daily, [Synthroid] # 90 tab, 3 Refill(s), Pharmacy: [facility] [place] [address] Levothyroxi 2016-06 No 25 Memori a ne Sodium 2-15 microgram l 0.025 MG 17:42: = 1 tab, Beronica nn Oral Tablet 00 PO, Daily, [Synthroid] 0 Refill(s) Ipratropium 2016-06 Yes 500 Memori a Noonan 0.2 2-15 microgram l MG/ML 17:09: = 2.5 mL, Sampson Inhalant 00 NEB, QID, Solution 0 Refill(s) metoprolol 2016-06 No 50 mg = 1 Me moria tartrate 50 2-15 tab, PO, l mg oral 17:09: BID, 0 [place] tablet 00 Refill(s) amLODIPine 2016-06 Yes 5 mg = 1 Mem oria 5 mg oral 2-15 tab, PO, l tablet 17:09: Daily, 0 Sampson 00 Refill(s) lisinopril 2016-06 Yes 2.5 mg = 1 M emoria 2.5 mg oral 2-15 tab, PO, l tablet 17:09: Daily, 0 Sampson 00 Refill(s) fluticasone 2016-06 Yes INHALATION Memoria furoate 2-15 , Q24H, 0 l 17:09: Refill(s) [place] 00 24 HR No Notes: Memoria Metoprolol 3-24 (Same as: l Tartrate 25 14:00: Toprol XL) [place] MG Extended 00 Do Not Release Crush Tablet [Toprol] Magnesium No Notes: Memori a Oxide 3-24 (Same as: l 14:00: Mag-Ox Sampson 00 400) Magnesium oxide 912nf=816t g elemental magnesium Dose=____m g magnesium oxide (___mg elemental magnesium) Humalog No Route: Memoria 3-24 SUB-Q, l 14:00: Daily, [place] 00 Dosing Weight 117.841, kg, Start date: [...] n 3-23 (Same As: l 22:00: Lipitor) Sampson AMIODarone Yes 300 mg, Shady cordelia 300 [...] tab, PO, l mg oral 14:20: Daily Sampson tablet 00 metoprolol Yes 25 mg = 1 Me moria 25 mg oral 3-23 tab, PO, l tablet, 14:20: Daily Sam[place] extended 00 release Humalog Yes 102UNITS, Memor [...] 3-23 tab, PO, l tablet 14:20: Daily Probiotic No 1 cap, PO, Me moria Formula 3-23 Daily, 0 l oral 14:20: Refill(s) capsule Vitamin D3 Yes 2,000 Memori a 2000 intl 3- IntlUnit = l units oral 14:20: 1 tab, PO, H [place] tablet 00 Daily [place]-3 Yes 1 tab, PO, Shady cordelia oral 3-23 BID l capsule 14:20: Benadryl No Notes: Memoria 3-23 (Same as: l 12:24: Benadryl) Valium No Notes: Memoria 3-23 (Same as: l 12:24: Valium) sodium No 1,000 mL, Memori a chloride 09-15 Rate: 100 l 0.45% 1000 12:23: ml/hr, Beronica nn ml INJ 00 Infuse 1,000 mL over: 10 hr, Route: IV, Dosing Weight 123.409 kg, Total Volume: 1,000, Start date: 09/15/16 7:23:00 CDT, 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 day, Stop date: 10/15/16 7:22:00 CDT Lasix 2015-06 No 40 mg, Memoria 07-24 Route: IV, l 15:00: Daily, Dosing Weight 123.409, kg, Start date: 05/24/16 9:00:00 DIRECTOR [employer] GRANT[employer], 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 day, Stop date: 06/22/16 9:00:00 DIRECTOR [employer]S albuterol 2015-06 Yes Notes: Memori a 07-24 Albuterol l 02:15: 90 Sampson 00 microgram/ inh 8gm HFA WASTE: Aerosol - Return to Pharmacy Same as: Shalonda Michael 200 ACTUAT 2015-06 No Notes: Memor ia Albuterol 07-24 Albuterol l 0.09 01:47: 90 Sampson MG/ACTUAT 00 microgram/ Metered inh 8gm Dose HFA Inhaler WASTE: [ProAir Aerosol - HFA] Return to Pharmacy Same as: Shalonda Michael 200 ACTUAT 2015-06 Yes 2 puff, Shady cordelia Albuterol 07-24 INHALER, l 0.09 01:44: Q6H, PRN Sampson MG/ACTUAT 00 for Metered wheezing, Dose # 18 gm, 0 Inhaler Refill(s) [ProAir HFA] Furosemide 2015-06 Yes 40 mg = 1 Me moria 40 MG Oral 29 tab, PO, l Tablet 01:44: Daily, # [place] [Lasix] 00 30 tab, 0 Refill(s) rivaroxaban [...] ia 07-23 (Same as: l 15:00: Prinivil, Zestril) Plavix 2015-06 No Notes: Memoria 07-23 (Same As: l 15:00: Plavix) Aspirin 2015-06 No Notes: Do Memor ia 07-23 not crush l 15:00: or chew. (Same As: Ecotrin) metoprolol 2015-06 No Notes: Memor ia extended 07-23 (Same as: l release 15:00: Toprol XL) Herm andrew May split tab, but do not crush. atorvastati 2015-06 No Notes: Shady cordelia n 07-23 Same as l 03:00: Lipitor [place] 00 Hydralazine 2015-06 No Notes: Shady cordelia 07-23 (Same as: l 00:29: Apresoline [place] 00 ) Push over 5 minutes potassium 2015-06 No Notes: Memori a phosphate-s 07-22 (Same as: l odium 23:46: Phos-NaK) Sampson phosphate 00 Each 1.5 250 mg-280 gm pkt has mg-160 mg 250mg oral powder phosphorou for s. Mix reconstitut w/2.5oz ion water and stir. heparin 2015-06 No Notes: Memoria sodium, 07-22 porcine l porcine 22:00: heparin [place] 2500 UNT/ML 00 Injectable Solution Insulin, 2015-06 No Notes: Memoria Aspart, 07-22 Roll in l Human 21:45: palms of [place] hands gently; Do not shake vigorously . (Same as: NovoLOG) "single patient use only" WASTE: F/P - Black; E - Municipal Trash Bin Stable for 28 days at room temperatur e. Expires in days from ____Date Dextrose 2015-06 No 25 gm, 50 Shady cordelia 50% Syringe 1-27 mL, Route: l 21:45: IVP, Drug Form: INJ, Dosing Weight 123.409, kg, PRN, PRN Blood Glucose Results, Start date: 05/22/16 15:45:00 DIRECTOR OF GRANTS, 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 day, Stop date: 06/21/16 15:44:00 DIRECTOR OF GRANTS Glucagon 2015-06 No 1 mg, Memoria 07-22 Route: IM, l 21:45: Drug form: [place] 00 PDR/INJ, PRN, Dosing Weight 123.409, kg, PRN Blood Glucose Results, Start date: 05/22/16 15:45:00 DIRECTOR OF GRANTS, 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 day, Stop date: 06/21/16 15:44:00 DIRECTOR OF GRANTS Albuterol 2015-06 No Notes: Memori a 0.833 MG/ML 07-22 (Same as: l / 21:36: Duoneb) Ipratropium Noonan 0.167 MG/ML Inhalant Solution [DuoNeb] Insulin Pen 2015-06 No Novolog Mem oria [place] 07-22 l Misc/Other 20:24: [place] Metformin 2015-06 Yes 500 mg = 1 Me moria hydrochlori 07-22 tab, PO, l de 500 MG 20:12: Daily [place] Oral Tablet 00 metoprolol 2015-06 Yes 50 mg = 1 Me moria 50 mg oral 07-22 tab, PO, l tablet, 20:12: Daily [place] extended 00 release Aspirin 81 2015-06 No 81 mg = 1 Me moria MG Chewable 07-22 tab, PO, l Tablet 20:12: Daily allopurinol 2015-06 Yes 100 mg = 1 Memoria 100 mg oral 07-22 tab, PO, l tablet 20:12: Daily MAGNESIUM 2015-06 Yes 400, PO, Shady cordelia GLUCONATE 07-22 Daily l 20:12: non-formula 2015-06 Yes PO, Daily, Memoria ry 07-22 OMEGA 3- l 20:12: DHA-EPA-FI SH OIL (OMEGA-3 FISH OIL) 1000 MG (120 MH-180 MG)CAP, Refill(s) 0 lisinopril 2015-06 Yes 5 mg = 1 Mem oria 5 mg oral 07-22 tab, PO, l tablet 20:12: Daily Furosemide 2015-06 No 20 mg = 1 Me moria 20 MG Oral 07-22 tab, PO, l Tablet 20:12: Daily cholecalcif 2015-06 Yes 2,000 Memor ia nevaeh [...] 07-22 cap, PO, l Capsule 20:12: Daily Vital Signs Vital Name Observation Time Observation Value Comments Source Systolic (mm Hg) 2020-01-07 19:12:00 Shady rial [place] Diastolic (mm Hg) 2020-01-07 19:12:00 Mem orial [place] Heart Rate 2020-01-07 19:12:00 Memorial [place] Height 2020-01-07 19:12:00 162.56 cm Memorial [place] Weight 2020-01-07 19:12:00 Memorial [place] BMI Calculated 2020-01-07 19:12:00 Memori al [place] Systolic (mm Hg) 2019-05-31 19:58:00 Shady rial [place] Diastolic (mm Hg) 2019-05-31 19:58:00 Mem orial [place] Heart Rate 2019-05-31 19:58:00 Memorial [place] Height 2019-05-31 19:58:00 167.64 cm Memorial [place] Weight 2019-05-31 19:58:00 Memorial [place] BMI Calculated 2019-05-31 19:58:00 Memori al [place] Systolic blood 2019-05-21 13:35:00 128 mm[Hg] Sunto n Voodoo pressure Diastolic blood 2019-05-21 13:35:00 74 mm[Hg] Nidia on Voodoo pressure Heart rate 2019-05-21 13:35:00 55 /min Marcus Voodoo Body temperature 2019-05-21 13:35:00 36.56 [place] Respiratory rate 2019-05-21 13:35:00 14 /min [place] Body weight 2019-05-21 13:35:00 123.378 kg Marcus Voodoo BMI 2019-05-21 13:35:00 43.90 kg/m2 Marcus Voodoo Oxygen saturation in 2019-05-21 13:35:00 98 /min Marcus Voodoo Arterial blood by Pulse oximetry Body height 2019-02-05 13:30:00 167.6 cm Marcus Voodoo Systolic (mm Hg) 2019-01-21 17:08:00 Shady rial [place] Diastolic (mm Hg) 2019-01-21 17:08:00 Mem orial [place] Temperature Oral (F) 2019-01-21 17:08:00 97.5 F Memorial [place] Respitory Rate 2019-01-21 17:08:00 Memori al [place] Heart Rate 2019-01-21 17:08:00 Memorial [place] Systolic (mm Hg) 2019-01-21 13:48:00 Shady rial [place] Diastolic (mm Hg) 2019-01-21 13:48:00 Mem orial [place] Respitory Rate 2019-01-21 13:48:00 Memori al [place] Heart Rate 2019-01-21 13:48:00 Memorial [place] Temperature Oral (F) 2019-01-21 13:48:00 97.8 F Memorial [place] Systolic (mm Hg) 2019-01-21 09:43:00 Shady rial [place] Diastolic (mm Hg) 2019-01-21 09:43:00 Mem orial [place] Respitory Rate 2019-01-21 09:43:00 Memori al [place] Heart Rate 2019-01-21 09:43:00 Memorial [place] Temperature Oral (F) 2019-01-21 09:43:00 97.5 F Memorial [place] Weight 2019-01-20 07:45:00 Memorial [place] BMI Calculated 2019-01-20 07:45:00 Memori al [place] Height 2019-01-20 07:45:00 167.64 cm Memorial [place] Weight 2019-01-20 04:43:00 Memorial [place] Weight 2018-11-23 18:30:00 Memorial [place] BMI Calculated 2018-11-23 18:30:00 Memori al [place] Height 2018-11-23 18:30:00 167.64 cm Memorial [place] Systolic (mm Hg) 2018-11-23 18:30:00 Shady rial [place] Diastolic (mm Hg) 2018-11-23 18:30:00 Mem orial [place] Heart Rate 2018-11-23 18:30:00 Memorial [place] Weight 2018-09-05 18:57:00 Memorial [place] Height 2018-09-05 18:57:00 167.64 cm Memorial [place] BMI Calculated 2018-09-05 18:57:00 Memori al [place] Systolic (mm Hg) 2018-09-05 18:57:00 Shady rial [place] Diastolic (mm Hg) 2018-09-05 18:57:00 Mem orial [place] Heart Rate 2018-09-05 18:57:00 Memorial [place] Weight 2017-11-17 15:40:00 Memorial [place] BMI Calculated 2017-11-17 15:40:00 Memori al [place] Height 2017-11-17 15:40:00 167.64 cm Memorial [place] Heart Rate 2017-11-17 15:40:00 Memorial [place] Systolic (mm Hg) 2017-11-17 15:40:00 Shady rial [place] Diastolic (mm Hg) 2017-11-17 15:40:00 Mem orial [place] Temperature Oral (F) 2017-10-15 14:50:00 97.5 F Memorial [place] Respitory Rate 2017-10-15 14:50:00 [facility] [place] Heart Rate 2017-10-15 14:50:00 [facility] Systolic (mm Hg) 2017-10-15 14:50:00 [facility] Diastolic (mm Hg) 2017-10-15 14:50:00 [facility] [place] BMI Calculated 2017-10-15 13:56:00 [facility] Weight 2017-10-15 13:56:00 [facility] [place] Heart Rate 2017-10-15 13:56:00 [facility] Respitory Rate 2017-10-15 13:56:00 [facility] Systolic (mm Hg) 2017-10-15 13:56:00 [facility] [facility] Diastolic (mm Hg) 2017-10-15 13:56:00 [facility] [place] Temperature Oral (F) 2017-10-15 13:56:00 97.5 F [facility] [place] Height 2017-10-15 13:56:00 167.64 cm [facility] BMI Calculated 2017-08-18 16:41:00 [facility] Heart Rate 2017-08-18 16:41:00 [facility] [place] Systolic (mm Hg) 2017-08-18 16:41:00 [facility] [facility] [place] Diastolic (mm Hg) 2017-08-18 16:41:00 [facility] Weight 2017-08-18 16:41:00 [facility] Height 2017-08-18 16:41:00 167.4 cm [facility] BMI Calculated 2017-07-21 16:38:00 [facility] [place] Height 2017-07-21 16:38:00 167.64 cm [facility] [place] Weight 2017-07-21 16:38:00 [facility] Systolic (mm Hg) 2017-07-21 16:38:00 [facility] [facility] [place] Diastolic (mm Hg) 2017-07-21 16:38:00 [facility] Heart Rate 2017-07-21 16:38:00 [facility] [place] Weight 2017-06-09 16:57:00 [facility] BMI Calculated 2017-06-09 16:57:00 [facility] [place] Height 2017-06-09 16:57:00 167.64 cm [facility] Heart Rate 2017-06-09 16:57:00 [facility] Systolic (mm Hg) 2017-06-09 16:57:00 [facility] [facility] [place] Diastolic (mm Hg) 2017-06-09 16:57:00 [facility] [place] BMI Calculated 2016-09-15 14:42:00 [facility] Height 2016-09-15 14:42:00 167.64 cm [facility] Weight 2016-09-15 14:42:00 [facility] Systolic (mm Hg) 2016-09-15 13:00:00 [facility] [facility] Diastolic (mm Hg) 2016-09-15 13:00:00 [facility] [place] Respitory Rate 2016-09-15 13:00:00 [facility] Heart Rate 2016-09-15 13:00:00 [facility] Systolic (mm Hg) 2016-05-24 01:25:00 [facility] [facility] [place] Diastolic (mm Hg) 2016-05-24 01:25:00 [facility] Respitory Rate 2016-05-24 01:25:00 [facility] Heart Rate 2016-05-24 01:25:00 [facility] [place] Temperature Oral (F) 2016-05-24 01:25:00 97.2 F [facility] [place] Systolic (mm Hg) 2016-05-23 22:04:00 [facility] [facility] [place] Diastolic (mm Hg) 2016-05-23 22:04:00 [facility] Heart Rate 2016-05-23 22:04:00 [facility] [place] Respitory Rate 2016-05-23 22:04:00 [facility] Temperature Oral (F) 2016-05-23 22:04:00 97.8 F [facility] Respitory Rate 2016-05-23 17:16:00 [facility] [place] Temperature Oral (F) 2016-05-23 17:16:00 97.1 F [facility] [place] Systolic (mm Hg) 2016-05-23 17:16:00 [facility] Diastolic (mm Hg) 2016-05-23 17:16:00 [facility] [place] Heart Rate 2016-05-23 17:16:00 [facility] 2016-05-22 20:00:00 [facility] [place] BMI Calculated 2016-05-22 20:00:00 Kulwinder al [place] Height 2016-05-22 20:00:00 167.64 cm [facility] Procedures Procedure Date / Time Performed Performing Clinician Alexandr e Bladder operation [facility] Cat[facility]act [facility] Hyste[facility] Knee [facility] arthroplasty<sup>1</sup> Tonsillectomy [facility] Breast biopsy and related [facility] procedures Miscellaneous [facility] operations<sup>2</sup> Skin operation<sup>3</sup> [facility] [place] Plan of Care Planned Activity Planned Date Details Comments Source Future Scheduled 2020-01-25 INFLUENZA VACCINE [place] [facility] 00:00:00 [code = INFLUENZA VACCINE] Future Scheduled 2007 65+ PNEUMOCOCCAL [place] [facility] 00:00:00 VACCINE (1 of 2 - PCV13) [code = 65+ PNEUMOCOCCAL VACCINE (1 of 2 - PCV13)] Future Scheduled 1992 SHINGLES VACCINES (#1) [place] [facility] 00:00:00 [code = SHINGLES VACCINES (#1)] Future Scheduled 1952 DIABETIC FOOT EXAM [place] [facility] 00:00:00 [code = DIABETIC FOOT EXAM] Future Scheduled 1952 URINE MICROALBUMIN [place] [facility] 00:00:00 [code = URINE MICROALBUMIN] Future Scheduled 1942 DIABETIC RETINAL EYE [place] [facility] 00:00:00 EXAM [code = DIABETIC RETINAL EYE EXAM] Encounters Start End Encounter Admission Attending Care Care Encounter Source Date/Time Date/Time Type Type Clinicians Facility Department ID 2020-01-07 2020-01-07 Outpatient Corina [facility] [id number] 13:45:00 23:59:59 Lul Couch 16 2019-12-12 2019-12-12 [facility] [id number] 07:30:00 10:07:00 Encounter eIraida [id number] Charity [id number] Surgical [id number] [place] 071 2019-12-11 2019-12-11 Laboratory Only, Ad[facility] [id number] 14:05:06 14:20:[address] [place] [id number] [place] [id number] [place] [id number] 2019-11-26 2019-11-26 Outpatient YOKO, [facility] [id number] [address] [place] [address] 00:00:00 00:00:00 ANNIKA [address] 2019-05-31 2019-05-31 Outpatient [place], [facility] [id number] 14:00:00 23:59:59 Rian Hi 13 2019-01-19 2019-01-21 Outpatient ARTHUR TamSL [facility] [id number] 23:41:51 15:04:00 Shania 2019-01-19 2019-01-19 Outpatient E [facility]FB MED [id number] MHFB 23:41:00 23:41:00 2018-11-23 2018-11-23 Outpatient [place], [facility] [id number] 14:00:00 23:59:59 Rian Hi 12 2018-09-07 2018-09-07 Outpatient [place], [facility] [id number] 13:15:00 13:15:00 Rian Hi 10 2018-09-05 2018-09-05 Outpatient [place], [facility] [id number] 13:00:00 23:59:59 Rian Hi 11 2018-06-21 2018-06-21 Outpatient [place], [facility] [id number] 11:30:00 11:30:00 Rian Hi 09 2018-05-11 2018-05-11 Outpatient [place], [facility] [id number] 10:30:00 10:30:00 Rian Hi 08 2017-11-17 2017-11-17 Outpatient [place], [facility] [id number] 10:15:00 23:59:59 Rian Hi 07 2017-10-15 2017-10-15 Outpatient Rhett Reyes [facility] [id number] 08:51:00 09:50:00 Si 2017-08-18 2017-08-18 Outpatient [place], [facility] [id number] 10:45:00 23:59:59 Rian Hi 06 2017-07-21 2017-07-21 Outpatient YAQUELIN Starr [facility] [id number] 10:15:00 23:59:59 Rian Hi 05 2017-07-21 2017-07-21 Outpatient VISIT, [facility] [id number] 10:00:00 23:59:59 NURSE CSL 04 ECHO 2017-07-14 2017-07-14 Outpatient VISIT, [facility] [id number] 10:00:00 10:00:00 NURSE CSL 03 ECHO 2017-06-09 2017-06-09 Outpatient Ro [facility] [id number] 10:30:00 23:59:59 Modisheron Hi 02 2016-09-15 2016-09-15 Outpatient Franc [facility] [id number] 06:23:00 10:45:00 Lan 00 2016-05-22 2016-05-23 Outpatient Mike [facility] [id number] 13:52:00 20:20:00 Anish 32 [place] Results Test Description Test Time Test Comments [...] code = MCH) 31.4 pg 27.0-31.0 [facility] ObscvvqKVSKISDKLB3715-24-78 15:52:000.1[facility] HermannHEMATOLOGY 2019-01-21 15:52:000.3[facility] UbbzujjYPFXEIZRQZ7948-64-19 15:52:000.4[facility] JzpsyrzVTIISLEZBQ6410-34-73 15:52:001.7[facility] ThmcfuaVHZVDEGPZA5819-56-36 15:52:000.8[facility] SkbdpsyNGVSUAAYHR8540-15-53 15:52:005.2[facility] XSMQDONVHO8962-02-76 15:52:004.3[facility] XihyrxcWHNFGSEDMZ2853-52-97 15:52:00 67.6[facility] VptrcuuDSUQYBZSHI9991-29-93 15:52:005.6[facility] HermannHEMATOLOGY 2019-01-21 15:52:0021.7[facility] UniyyzzKVBRMFINNTZK1546-68-10 15:51:60183 [facility] NohbtxwWYMAHOTEEAKQ7713-45-21 15:51:0022[facility] HermannELECTROLYTES 2019-01-21 15:51:0011.0[facility] KjwdsvkZDOWXAXVUVUT4804-38-47 15:51:008.8 [facility] MjfdtuvAGKIUJKPNAMR7327-61-09 15:51:15033Eanbgvra HermannELECTROLYTES 2019-01-21 15:51:002.32[facility] PwyptavJLTTHKREJDNQ0881-93-91 15:51:0063[facility] CumpqrbRNHGSBZVXGGL6814-79-63 15:51:005.0[facility] RtgbxorFBUYUXPXPJGC9188-72-78 15:51:62959Ctmrvmtb HermannURINE AND KNEDM6621-47-57 22:14:00Light Yellow *NA*(01/20/19 5:14 PM)[facility] SENLB0136-53-50 22:14:00 Test Item Value Reference Range Interpretation Comments UA Spec Grav (test code = UA Spec 1.012 1 Grav) [facility] LNWFH5722-25-41 22:14:00 Test Item Value Reference Range Interpretation Comments UA pH (test code = UA pH) 5.0 1 5.0-8.0 [facility] FTFHL1648-40-17 22:14:00Slight *ABN*(01/20/19 5:14 PM) [facility] DWKUD9616-99-29 22:14:001[facility] AZAUS6030-98-69 22:14:00Negative (01/20/19 5:14 PM)[facility] YKKLY0938-61-74 22:14:00Negative (01/20/19 5:14 PM)[facility] QXATZ6921-35-69 22:14:00Negative (01/20/19 5:14 PM)[facility] DJYXH7964-58-07 22:14:00<1[facility]ann[facility] AND UFNUL3374-90-03 22:14:00 Negative *NA*(01/20/19 5:14 PM)[facility] HermannCARDIAC PUFEJKA3912-42-00 15:14:00 <0.02[facility] HermannCARDIAC MOGMZJV1184-47-87 10:10:00<0.02[facility] GdqkwpkYDWCBF9434-11-08 10:10:00 Test Item Value Reference Range Interpretation Comments VLDL (test code = VLDL) 21 1 [facility] NxypyysCKPCJS8689-42-69 10:10:96406Wzqudauj KnuvdyfAENMJW4628-45-90 10:10:0079[facility] SutkdtaDTFQUJ1120-45-50 10:10:0040[facility] HermannLIPIDS 2019-01-20 10:10:00 Test Item Value Reference Range Interpretation Comments CHD Risk (test code = CHD Risk) 1.98 1 3.90-5.80 [facility] OmebiogREHVUS7831-76-03 10:10:0018[facility] HermannCARDIAC ENZYMES 2019-01-20 05:38:00<0.02[facility] HermannCARDIAC YLSKHUE7796-05-70 05:38:0077 [facility]annCARDIAC ZRRJZVW5526-40-66 05:38:001.8[facility] HermannCARDIAC CIUAUGL8021-60-36 05:38:14586Rkghjznu HermannCARDIAC ORLXMFJ2435-86-12 05:38:00 Test Item Value Reference Range Interpretation Comments CK MB Index (test code = CK MB Index) 2.3 1 <=2.5 [facility] HermannCHEM LHCPB3064-54-44 05:38:0020[facility] HermannCHEM PANEL 2019-01-20 05:38:0022[facility] HermannCHEM SQJPS9404-91-25 05:38:003.9[facility] HermannCHEM UADJX9464-23-95 05:38:0025[facility] HermannCHEM TOOPV8952-80-62 05:38:008.9[facility] HermannCHEM PXZSD2735-54-35 05:38:007.2[facility] HermannCHEM KAKFV4006-88-70 05:38:003.3[facility] HermannCHEM OTPJL4916-19-99 05:38:00 Test Item Value Reference Range Interpretation Comments A/G Ratio (test code = A/G Ratio) 1.2 1 0.7-1.6 [facility] HermannCHEM IRIWQ8227-03-70 05:38:0021[facility] HermannCHEM PANEL 2019-01-20 05:38:02909Ffivznqw HermannCHEM ZJLAH2025-18-06 05:38:00 Test Item Value Reference Range Interpretation Comments B/C Ratio (test code = B/C Ratio) 29 1 6-25 [facility] HermannCHEM ZYJZG1181-25-68 05:38:000.3[facility] HermannCHEM PANEL 2019-01-20 05:38:0012.1[facility] HermannCHEM MYRNA5921-12-15 05:38:0067[facility] HermannCHEM XAKIU6848-72-24 05:38:002.34[facility] HermannCHEM FEHAX0200-42-50 05:38:27467Dearlqlp HermannCHEM XGCYL8532-90-35 05:38:80047Adsfzhhw HermannCHEM ULHEK3395-66-08 05:38:004.1[facility] HermannCHEM WEAIQ9622-18-89 05:38:62282 [facility] CenterBgnxucfRMWAREFUFP3660-26-46 05:38:00 Test Item Value Reference Range Interpretation Comments PTT (test code = PTT) 38.0 s 22.9-35.8 [facility] CenterAacfauaNYMCXWNGAN8863-96-94 05:38:00 Test Item Value Reference Range Interpretation Comments INR (test code = INR) 1.33 1 0.85-1.17 [facility] GhpnlctKYGXQJZVBM0076-91-66 05:38:00 Test Item Value Reference Range Interpretation Comments PT (test code = PT) 16.2 s 12.0-14.7 [facility] WlcnojkNCFDWVZQNS3886-79-99 05:38:000.53[facility] HermannHEMATOLOGY 2019-01-20 05:38:008.6[facility] OojkoncTRPUADPKLK9966-59-89 05:38:0032.9[facility] QgcqiwhMKNOPEBNGU8384-42-58 05:38:0014.7[facility] OwgvdlzQMDICSOCGU7852-52-16 05:38:003.79[facility] UwlvvzfCPVRJBNFSW4673-66-28 05:38:0010.9[facility] [place] JAWHTLLBCW7363-67-24 05:38:00 Test Item Value Reference Range Interpretation Comments MCH (test code = MCH) 31.2 pg 27.0-31.0 [facility] ZpcaihtHZMJYRSXJT5531-37-50 05:38:0036.0[facility] HermannHEMATOLOGY 2019-01-20 05:38:97618Xwfkknqe PeojpzhMUSOUFGIXZ4725-81-76 05:38:0011.8[facility] LahqdbtPZXTGYPDOI4589-43-79 05:38:0094.9[facility] RlhtmcuQVVMXENBJL4682-34-51 05:38:000.4[facility] FhyjqcmPNXZVZNAJP6425-44-01 05:38:000.6[facility] [place] WFVZUMVBLG4095-46-69 05:38:002.4[facility] YpeicdrJGSXANFZSX4632-70-62 05:38:007.4 [facility] AglasrnZAAIXTDZXE4298-19-55 05:38:0021.6[facility] HermannHEMATOLOGY 2019-01-20 05:38:0067.5[facility] HdmtmqyQSARAXSKRE2651-98-75 05:38:000.1[facility] SbhktziQDVAUTZKTX5833-48-66 05:38:003.8[facility] ChfrejkBVUKCBVRXX8347-94-68 05:38:005.9[facility] OsplfuhXXMJGCPXWM9617-71-17 05:38:001.2[facility] HermannURINE AND QMLYA0389-87-32 14:08:00Large *ABN*(10/15/17 9:08 AM)[facility]annUR[facility] AND GPJUC1325-16-81 14:08:00 Test Item Value Reference Range Interpretation Comments UA pH (test code = UA pH) 5.0 1 5.0-8.0 [facility] AND DZMUJ8953-62-68 14:08:00>182[facility]annURINE AND TTRJP0653-99-88 14:08:00Negative *NA*(10/15/17 9:08 AM)[facility] AND NUVXV3384-38-04 14:08:00Negative (10/15/17 9:08 AM)[facility] AND XDNJE6854-76-15 14:08:00Large *ABN*(10/15/17 9:08 AM)[facility]annUR[facility] AND THSSK6570-03-05 14:08:02517Zcxupvpq HermannURINE AND UPVBV1406-98-68 14:08:00 Light Yellow *NA*(10/15/17 9:08 AM)[facility]ann[facility] AND BWRAJ9133-23-78 14:08:00Marked *ABN*(10/15/17 9:08 AM)[facility]ann[facility] AND CLBQE4918-36-30 14:08:00 Test Item Value Reference Range Interpretation Comments UA Spec Grav (test code = UA Spec 1.005 1 Grav) [facility] HermannCHEM QJLXQ7185-94-24 13:05:0027[facility] HermannCHEM PANEL 2016-09-15 13:05:001.15[facility] HermannCHEM WPKUC2790-88-23 13:05:0012.9[facility] HermannCHEM HNUXY0513-18-50 13:05:0038.0[facility] HermannCHEM LYAJW0269-02-49 13:05:0017.0[facility] HermannCHEM GFWMU1664-63-68 13:05:001.8[facility] HermannCHEM YYNGH5672-47-81 13:05:0040[facility] HermannCHEM LBVAY8169-82-40 13:05:85548 [facility] HermannCHEM PYCKN3184-44-36 13:05:003.7[facility] HermannCHEM PANEL 2016-09-15 13:05:56595Nqknnxrb HermannCHEM ETIHX3669-73-31 13:05:0026[facility] HermannCHEM UXDZP2512-51-00 13:05:63878Navjpzoe HermannCARDIAC MGDCVXP9353-76-92 02:25:00<0.010[facility] HermannSPECIAL LHRZEYPRH0598-29-64 02:25:007.9[facility] HermannCHEM ROYXS3305-77-24 21:10:002.3[facility] HermannCHEM CVDCA1209-93-64 21:10:002.2[facility] KabafooICDDKSEGBPYK5103-66-71 21:10:0011.9[facility] [place] AGWPYGJYVRBK5492-81-45 21:10:001.34[facility] ZaxmylsUKRMXWNWKUTP1428-68-54 21:10:74896Ktwzuuwv GbeqhfaCSRJCLUBGGDN9855-04-33 21:10:78763Vwcjzfqz [facility] KAGCPPTGGDPL1693-06-34 21:10:0022[facility] UsipqfqVTAVUKKPHHJO0308-07-10 21:10:00 26[facility] LdqrtjfPPPGGOHVLLYY7670-13-04 21:10:009.2[facility] HermannELECTROLYTES 2016-05-22 21:10:60191Inpmymsy RniswcnWUPDWEIRSTMW0773-64-06 21:10:003.9[facility] BrdokjpXIVNLVWFBMRZ7853-06-13 21:10:0039[facility] OjvsjohYURABMDPSN8846-01-87 21:10:000.3[facility] QbxznevBRVVCPHMRP4492-40-18 21:10:0012.2[facility] JBVRSKSTWC6110-87-76 21:10:000.5[facility] PihkpfeITDTGQEJJM0376-12-07 21:10:000.1 [facility] QrjbwdnTDDBXNEOMG9208-62-90 21:10:0094.7[facility] HermannHEMATOLOGY 2016-05-22 21:10:000.1[facility] DjlujlhCJYBHFDRYT2005-35-29 21:10:004.2[facility] YdwuhhjETQGWTCVMB6002-59-67 21:10:000.7[facility] KdpndvsOKKKRDEALN5780-59-25 21:10:00 Test Item Value Reference Range Interpretation Comments PT (test code = PT) 14.9 s 12.0-14.7 [facility] TyhswovJZGQOTWJGM9464-32-97 21:10:001.15[facility] HermannHEMATOLOGY 2016-05-22 21:10:00 Test Item Value Reference Range Interpretation Comments PTT (test code = PTT) 34.4 s 22.9-35.8 [facility] UhqsfalNMUENJKQED9700-55-60 21:10:22811Nupfsxco HermannHEMATOLOGY 2016-05-22 21:10:008.6[facility] HnvujupOCHXEEAQFK2697-61-30 21:10:0014.4[facility] NmwztemXGGLILETBS9093-65-01 21:10:0033.0[facility] QdgbzdnVGRZCAYOZX4184-31-00 21:10:0093.5[facility] OceyeicMLSRKVIXWF0675-31-93 21:10:0034.4[facility] [place] FBPAWYPGYG2281-13-44 21:10:00 Test Item Value Reference Range Interpretation Comments MCH (test code = MCH) 30.9 pg 27.0-31.0 [facility] OttfveuDMINFBAHVI3111-73-41 21:10:0011.4[facility] HermannHEMATOLOGY 2016-05-22 21:10:003.68[facility] IoiseqwGMUATNOFUI3057-10-73 21:10:0012.9[facility]
[2020-01-10] MEDS ORDERED: ALBUTEROL 2.5 MG/3 ML NEB SOL ONE (07:40)
[2020-01-10] MEDS ORDERED: CEFAZOLIN/SWI 1gm 1 GM/10 ML SYR ONE (07:40)
[2020-01-10] MEDS ORDERED: NA CHLORIDE 0.9% 1,000 ML ONE (07:40)
[2020-01-10] MEDS ORDERED: FENTANYL CITR 100 MCG/2 ML ONE (08:44)
[2020-01-10] MEDS ORDERED: LIDOCAINE 1% MPF 5 ML VIAL ONE (09:28)
[2020-01-10] MEDS ORDERED: propofoL 200 MG/20 ML VIAL IV ONE (09:28)
[2020-01-10] MEDS ORDERED: EPHEDRINE SULF 50 MG/ML VIAL ONE (09:58)
[2020-01-10] MEDS ORDERED: NS 0.9% VIAL 10 ML ONE (09:59)
[2020-01-10] MEDS ORDERED: KETOROLAC 30 MG/ML INJ ONE (10:02)
[2020-01-10] MEDS ORDERED: ONDANSETRON 4 MG/2 ML VIAL ONE (10:04)
[2020-01-10 10:33] VITALS: O2SAT 100
--- NOTE | 2020-01-10 10:39 | RAD REPORT ---
EXAM DESCRIPTION: US - Surgical Specimen - 01/10/2020 10:24 am FINDINGS: Sonographic evaluation of the surgical specimen was performed. The mass in question was identifiable within the specimen.
[2020-01-10] MEDS ORDERED: INSULIN -REGULAR HUMAN 50 UNIT/0.5 ML ML ONE (10:49)
--- NOTE | 2020-01-10 11:14 | OP ---
Date of Procedure: 01/10/2020 Surgeon: Nishant Costa MD Preoperative Diagnosis: Left breast mass. Postoperative Diagnosis: Left breast mass. Procedure: Needle localization and excision of left breast mass. Estimated Blood Loss: Minimal. Specimen: Left breast mass. Findings: As above. Anesthesia: General. Complications: None. The patient tolerated the procedure in stable condition, taken to Recovery in good general condition. Procedure In Detail: The patient was brought to the OR and placed in supine position. General anest hesia begun. The patient was prepped and draped in usual sterile fashion. Then, a 15-blade was used to make approximately a 3 cm curvilinear incision from the 11 to 1 o'clock the nipple areolar skin m argin on the left breast. Subcu tissues divided. Tract of the needle identified and then core tissu e around the tip of the needle was excised, sent to radiology, confirmation obtained. Wound irrigate d. Bleeding controlled with cautery. 3-0 chromic was used to approximate the subcutaneous tissue an d closed the skin. Sterile dressing was applied. The patient was awakened and taken to Recovery in good general condition. Discharge Note: The patient will go to day surgery and home when stable. Disposition: Home. Condition: Stable. Discharge Instructions: Resume home medications and diet. Activity as tolerated. No heavy lifting. Remove outer dressing in 2 days. Shower. Keep wound clean and dry. Keep Steri-Strips on at all t imes. Follow up in my office in 1 week. Call for appointment. Tylenol No. 3 one tablet p.o. q.4 p. r.n. pain. /MODL Voice ID: [id number] Report ID: [id number]
[2020-01-10] MEDS ORDERED: CODEINE 30MG/APAP 300MG TAB ONE (11:24)
[2020-01-10 12:26] VITALS: BP 143/68; TEMP 97.1
--- NOTE | 2020-01-10 19:13 | RAD REPORT ---
EXAM DESCRIPTION: US - Fine Needle Asp Breast Guide - 01/10/2020 9:49 am CLINICAL HISTORY: Mass left breast COMPARISON: Biopsy imaging December 30, 2019, diagnostic mammogram and ultrasound December 16, 2019 FINDINGS: The patient presents for ultrasound-guided breast preoperative needle localization. The pr ocedure, risks and alternatives were discussed with the patient in detail. Consent was obtained as pa rt of the surgical consent. The patient had no contraindicated allergy or medication history. Preliminary imaging again identified the mass in the 12 o'clock periareolar left breast. A amorphous hypoechoic area is present adjacent to the mass related to remnant hemorrhage from the earlier core b iopsy. The remnant core of the mass was identifiable. The skin was prepped and draped in the usual sterile fashion. Skin and deeper tissues were anesthet ized with 1 percent lidocaine. Under direct sonographic visualization, the [place] mammolock 5 cm local ization needle was advanced from a lateral approach. The needle penetrated the mass extending through to the medial margin. Hookwire was set. The patient tolerated the procedure without complication. Th e patient was transferred to the surgical holding area pending excisional biopsy. IMPRESSION: Ultrasound-guided left breast pre-surgical needle localization as detailed.
== END 2020-01-10 11:35 | disposition home or self-care (01) ==
LOC: RAD 07:12
PROVIDERS: ATTEND Surgery
PROC: 0HBU0ZX Excision of Left Breast, Open Approach, Diagnostic (ICD-10-PCS; principal; 2020-01-10 08:30)
DX: N60.22 Fibroadenosis of left breast (principal); I48.91 Unspecified atrial fibrillation; J44.9 Chronic obstructive pulmonary disease, unspecified; I12.9 Hypertensive chronic kidney disease with stage 1 through stage 4 chronic kidney disease, or unspecified chronic kidney disease; N18.9 Chronic kidney disease, unspecified; E07.9 Disorder of thyroid, unspecified; F17.210 Nicotine dependence, cigarettes, uncomplicated; Z79.01 Long term (current) use of anticoagulants; Z79.899 Other long term (current) drug therapy; Z95.5 Presence of coronary angioplasty implant and graft; Z80.3 Family history of malignant neoplasm of breast
CPT/HCPCS: 19125; 85025; 80048; 36415; 82947; 88305; 71046; 76942; 10005; 76098; U0002; J2704; J3010; J0690; J7030; J2405

== ENCOUNTER 2020-05-05 07:58 | Day surgery (SDC) | payer OTHER ==
--- OUTSIDE RECORDS SUMMARY | 2020-05-05 08:14 | XMS REPORT | Clinical Summary ---
:1940 Author Organization [facility] Address [address] [place] [address] Care Team Providers Name Role Phone Cooper Walter MD Primary Care Provider Allergies Active Allergy Reactions Severity Noted Date Comments Pioglitazone Hives 06/29/2016 Nitrofurantoin Macrocrystal Anaphylaxis High 06/29/2016 Prednisone Other (See Comments) 06/29/2016 Tramadol Swelling 06/29/2016 Medications Medication Sig Dispensed Refills Start Date End Date Status umeclidinium-vilant Inhale. 0 Active nevaeh 62.5-25 mcg/actuation blister with device atorvastatin Take 20 mg by mouth 0 Active (LIPITOR) 20 MG nightly. tablet INSULIN Inject under the 0 Act jono SUBCUTANEOUS PUMP, skin continuously. HUMALOG, 100 UNITS/ML INSULIN PUMP INFUSION (HumaLOG) lisinopril Take 2.5 mg by 0 Acti ve (PRINIVIL,ZESTRIL) mouth daily. 2.5 mg tablet amLODIPine Take 5 mg by mouth 0 Active (NORVASC) 5 mg daily. tablet furosemide (LASIX) Take 40 mg by mouth 0 Active 40 mg tablet daily. allopurinol Take 100 mg by 0 Act jono (ZYLOPRIM) 100 MG mouth daily. tablet rivaroxaban Take 15 mg by 0 Acti ve (XARELTO) 15 mg mouth. tablet cholecalciferol, Take 2,000 Units by 0 Active vitamin D3, mouth daily. (VITAMIN D3) 2,000 unit capsule capsule MUCINEX 600 mg TAKE 1 TABLET BY 60 tablet 0 04/18/2018 Active tablet extended MOUTH TWICE DAILY release 12hr albuterol sulfate Inhale 180 mcg 1 each 3 06/06/2018 Active (PROAIR RESPICLICK) every 4 (four) 90 mcg/actuation hours. aerosol powdr breath activated alendronate TK 1 T PO ONCE A 0 01/09/2019 Active (FOSAMAX) 70 MG WEEK. tablet metoprolol TK 1 T PO D 3 11/23/2018 Active succinate XL (TOPROL-XL) 25 mg 24 hr tablet ipratropium-albuter Take 3 mL by 60 mL 3 02/05/2019 Active ol (DUO-NEB) nebulization 4 0.5-2.5 mg/3 mL (four) times a day. nebulizer fluticasone USE 1 SPRAY IN EACH 48 mL 1 02/06/2019 Active propionate NOSTRIL TWICE DAILY (FLONASE) 50 mcg/actuation nasal spray guaiFENesin Take 10 mL (200 mg 120 mL 0 05/21/2019 06/20/20 19 (ROBITUSSIN) 100 total) by mouth 3 mg/5 mL syrup (three) times a day as needed for cough for up to 30 days. albuterol (ProAir Inhale 2 puffs 18 g 0 11/26/20192019 HFA) 90 every 6 (six) hours mcg/actuation as needed for inhaler wheezing for up to 30 days. Active [...] acute bronchitis (HCC) (Primary Dx); Tobacco abuse after 05/05/2019 Surgical History Surgery Date Site/Laterality Comments CARDIAC CATHETERIZATION BREAST LUMPECTOMY Right CARDIAC ELECTROPHYSIOLOGY PROCEDURE 06/29/2016 N/A Procedure: Ep cardioversion; Surgeon: Yvonne Garrison MD; Location: [facility] Invasive [facility] n; Service: Cardiov ascular; Laterality: N/A; Medical History Medical History Date Comments Diabetes mellitus (HCC) Hypertension Hyperlipidemia Arrhythmia Coronary artery disease Asthma COPD (chronic obstructive pulmonary disease) (HCC) Family History Medical History Relation Name Comments Heart attack Father Prostate cancer Father Heart disease Mother Hypertension Mother Relation Name Status Comments Father Mother Social History Tobacco Use Types Packs/Day Years Used Date Former Smoker Smokeless Tobacco: Former User Alcohol Use Drinks/Week oz/Week Comments No Sex Assigned at Date Recorded Not on file Last Filed Vital Signs Vital Sign Reading Time Taken Comments Blood Pressure 128/74 05/21/2019 1:35 PM [employer] Pulse 55 05/21/2019 1:35 PM [employer] Temperature 36.6 C (97.8 F) 05/21/2019 1:35 PM [employer] Respiratory Rate 14 05/21/2019 1:35 PM [employer] Oxygen Saturation 98% 05/21/2019 1:35 PM [employer] Inhaled Oxygen Concentration - - Weight 123 kg (272 lb) 05/21/2019 1:35 PM [employer] Height - - Body Mass Index 43.9 02/05/2019 1:30 PM CDT Plan of Treatment Health Maintenance Due Date Last Done Comments DIABETES: RETINAL EYE EXAM 1952 DIABETIC FOOT EXAM 1950 URINE MICROALBUMIN 1952 SHINGLES VACCINES (#1) 1992 65+ PNEUMOCOCCAL VACCINE (1 of 1 - PPSV23) 2007 INFLUENZA VACCINE 01/25/2020 Results Not on fileafter 05/05/2019 Insurance Payer Benefit Plan / Subscriber ID Effective Dates Phone Addre ss Type Group HUMANA MEDICARE HU[employer]NA MEDICARE [id number] 2016-Present PPO PPO/PFFS/ERS 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
--- OUTSIDE RECORDS SUMMARY | 2020-05-05 08:17 | XMS REPORT | Continuity of Care Document ---
:1940 Author Organization [employer] [employer] [facility] Care Team Providers Name Role Phone [facility] Unavailable Un available Problems Problem Status Onset Classification Date Comments Sourc e Date Reported SOB, WEAK Active Sugar 019 [place] Urinary tract 10/18/2017 Liu gar infection, site not 018 [place] specified AFIB/I48.2; HTN, DM Active 017 [facility] PROBABLE PE Active [address] Center Disorder of Active Problem 02/26/2020 Data Medi ricky refraction AND/OR 014 migrated Gr oup, accommodation from [facility] (disorder) [facility] on 11/22/14. Artie,[facility] Pseudophakia Active Problem 02/26/2020 Data Med ical (disorder) 014 migrated Group, from [facility] on 11/22/14. [facility] Long-term drug Active Problem 02/26/2020 Data [facility] edical therapy (procedure) 012 migrated Group, from [facility] on 11/22/14. [facility] Diabetic Active Problem 02/26/2020 Data Medica l complication 011 migrated Group,[facility] (disorder) from [facility] on 11/22/14. Artie,[facility] Acute exacerbation Resolved Problem 02/26/2020 Medical of chronic Group, obstructive airways [place] disease (disorder) edical [facility], [facility] Atrial fibrillation Active Problem 02/26/2020 Medical (disorder) Group,[facility] Acute renal failure Resolved Problem 02/26/2020 STAGE #3 Medical syndrome (disorder) Group,[facility], [facility] [place] Benign essential Active Problem 02/26/2020 Data Medical hypertension migrated Group,[facility] (disorder) from [facility] on 11/22/14. Artie,[facility], [facility] Diabetes mellitus Resolved Problem 02/26/2020 [facility] Medical (disorder) Group,[facility], [facility] Hyperlipidemia Active Problem 02/26/2020 Data [facility] edical (disorder) migrated Group, from [facility] on 11/22/14. Artie,[facility], [facility] Asthma (disorder) Resolved Problem 02/26/2020 [facility] Medical Group,[facility], [facility] Hypertensive Resolved Problem 02/26/2020 Med ical disorder, systemic Carla bullock, arterial (disorder) [facility], [facility] Myocardial Resolved Problem 02/26/2020 TWO YEARS Medic al infarction AGO, TWO Group, (disorder) STENT [facility], [facility] Morbid obesity Active Problem 02/26/2020 [facility] edical (disorder) Group, [facility] Nuclear cataract Active Problem 02/26/2020 Medical (disorder) Group,[facility], [facility] Coronary Active Problem 02/26/2020 Medica l arteriosclerosis Mike up, (disorder) Sugar Daniel d Diastolic heart Active Problem 02/26/2020 Medical failure (disorder) Carla bullock [facility] Patient encounter Active Problem 02/26/2020 [facility] Medical status (finding) Mike up CHRONIC ATRIAL Active FIBRILLATION [facility] Medications Medication Details Route Status Patient Ordering Order Source Instructions Provider Date amLODIPine 5 mg 5 mg = 1 tab, Active 01/06/ Medical oral tablet PO, BID, 0 2019 Group Refill(s) rivaroxaban 15 MG 15 mg = 1 tab, Active 02/07/ Medical Oral Tablet PO, Daily, # 90 2019 Grou p [Xarelto] tab, 3 Refill(s), Pharmacy: [facility][id number] levothyroxine 50 50 microgram = Active 01/21/ Sugar mcg (0.05 mg) 1 tab, PO, 2019 [facility] oral tablet Daily, 0 Refill(s) Lisinopril Notes: (Same Inactive 01/21/ Allan dahl as: Prinivil, 2019 [facility] Zestril) Allopurinol Notes: (Same Inactive Sug [...] Notes: SEE RT No Longer S ugar [place] 0.2 MG/ML DOCUMENTATION Active 2018 [place] Inhalant [...] 62.5 mcg-25 mcg INHALER, Daily, 2019 [facility] inhalation powder # 1 ea, 3 [...] Sugar Syringe Route: IVP, Active 2018 [facility] Drug Form: INJ, Dosing Weight 124.8, kg, PRN, PRN Blood Glucose Results, Start date: 01/20/19 2:30:00 CDT, 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 day, Stop date: 02/19/19 2:29:00 CDT, 0 Glucagon 1 mg, Route: No Longer Sugar IM, Drug form: Active 2018 [facility] PDR/INJ, PRN, Dosing Weight 124.8, kg, PRN Blood Glucose Results, Start date: 01/20/19 2:30:00 CDT, 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 day, Stop date: 02/19/19 2:29:00 CDT, 0 Saline Flush 0.9% Notes: (Same No Longer [place] as: BD Active 2018 [facility] Posiflush) Nitroglycerin Notes: (Same No Longer [place] as:Nitroquick, Active 2018 [place] Nitrostat) "Do Not Crush" Sublingual tablet Aspirin 325 MG Notes: Take Inactive S ugar Oral Tablet with food. 2019 [facility] rivaroxaban 15 MG 15 mg = 1 tab, Active Medical Oral Tablet PO, QPM, # 90 2019 Group [Xarelto] tab, 3 Refill(s), Pharmacy: [facility] [id number] lisinopril 5 mg 5 mg = 1 tab, Active Medical oral tablet PO, Daily, # 90 2019 Grou p tab, 3 Refill(s), Pharmacy: [facility] [id number] atorvastatin 20 20 mg = 1 tab, Active 11/23/ H Medical mg oral tablet PO, QPM, # 90 2019 Mike up tab, 3 Refill(s), Pharmacy: [facility] [id number] amLODIPine 5 mg 5 mg = 1 tab, Active Medical oral tablet PO, Daily, # 90 2019 Grou p tab, 3 Refill(s), Pharmacy: [facility] [id number] rivaroxaban 15 MG 15 mg = 1 [...] up extended release tab, 3 Refill(s), Pharmacy: [facility] [id number] Alendronic acid 70 mg = 1 tab, [...] MG TAB, Dosing Oral Tablet Weight 124.091, [[place] 5/325] kg, ONCE, STAT, Start date: 10/15/17 9:13:00 CDT, Stop date: 10/15/17 9:13:00 CDT Pyridium Notes: Give Inactive Sugar with meals. 2018 Land (Same as: Pyridium) Furosemide 40 MG 40 mg = 1 tab, Active Medical Oral Tablet PO, BID, # 180 2018 Group tab, 3 Refill(s), Pharmacy: [facility] [id number] Levothyroxine 25 microgram = Active Medical Sodium 0.025 MG 1 tab, PO, 2017 Group Oral Tablet Daily, # 90 [Synthroid] tab, 3 Refill(s), Pharmacy: [facility] [id number] Levothyroxine 25 microgram = Inactive Medical Sodium 0.025 MG 1 tab, PO, 2017 Group Oral Tablet Daily, 0 [Synthroid] Refill(s) Ipratropium 500 microgram = Active M edical [place] 0.2 MG/ML 2.5 mL, NEB, 2017 G [...] 25 MG as: Toprol XL) Active 2016 [facility] Extended Release Do Not Crush Tablet [Toprol] Magnesium Oxide Notes: (Same No Longer H as: Mag-Ox 400) Active 2016 [facility] Magnesium oxide [id number] elemental magnesium Dose=____mg magnesium oxide (___mg elemental magnesium) Humalog Route: SUB-Q, No Longer Daily, Dosing Active 2016 [facility] Weight 117.841, kg, Start date: 09/16/16 9:00:00 CDT, 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 day, Stop date: 10/15/16 9:00:00 CDT Vitamin D3 2000 Notes: Same as No Longer intl units oral : Vitamin D3 Active 2016 Leila [facility]west tablet Amiodarone Notes: (Same No Longer as: Cordarone) Active 2016 [facility] Allopurinol Notes: (Same No Longer as: Zyloprim) Active 2016 [facility] Xarelto Notes: (Same Inactive as: Xarelto) 2016 [facility] Administer with food Furosemide 40 MG Notes: (Same Inactive H Oral Tablet as: Lasix) October 2016 [place] cause GI upset. Give with food or milk. atorvastatin Notes: (Same Inactive As: Lipitor) 2016 [facility] AMIODarone 300 mg 300 mg, PO, Active oral tablet Daily, 0 2016 [facility] Refill(s) AMIODarone 200 mg 200 mg = 1 tab, Inactive 09/15 oral tablet PO, BID 2016 [facility] Furosemide 40 MG 40 mg = 1 tab, Active Oral Tablet PO, BID 2016 [facility] magnesium oxide 500 mg = 1 tab, Active 500 mg oral PO, Daily 2016 [facility] tablet metoprolol 25 mg 25 mg = 1 tab, Active oral tablet, PO, Daily 2016 [facility] extended release Humalog 102UNITS, Active SUB-Q, Daily, 2016 [facility] INSULIN PUMP DORINA-FLOW SPRAY DORINA-FLOW SPRAY, Active 1 spray, NASAL, 2016 [facility] t Daily atorvastatin 20 20 mg = 1 tab, Active H mg oral tablet PO, QPM 2016 [facility] allopurinol 300 300 mg = 1 tab, Active mg oral tablet PO, Daily 2016 [facility] Probiotic Formula 1 cap, PO, Inactive oral capsule Daily, 0 2016 [facility] Refill(s) Vitamin D3 2000 2,000 IntlUnit Active intl units oral = 1 tab, PO, 2016 Leila [place] tablet Daily Palmer-3 oral 1 tab, PO, BID Active capsule 2016 [facility] Benadryl Notes: (Same Inactive as: Benadryl) 2016 [facility] Valium Notes: (Same Inactive as: Valium) 2016 [facility] sodium chloride 1,000 mL, Rate: Inactive 0.45% 1000 ml INJ 100 ml/hr, 2016 Leila [place] 1,000 mL Infuse over: 10 hr, Route: IV, Dosing Weight 123.409 kg, Total Volume: 1,000, Start date: 09/15/16 7:23:00 CDT, 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 day, Stop date: 10/15/16 7:22:00 CDT Lasix 40 mg, Route: No Longer [facility] IV, Daily, Active 2016 Medical Dosing Weight Center 123.409, kg, Start date: 05/24/16 9:00:00 LUMBER GRADER, 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 day, Stop date: 06/22/16 9:00:00 LUMBER GRADER albuterol Notes: Inactive [facility] Albuterol 90 2016 Medical microgram/inh Center 8gm HFA WASTE: Aerosol - Return to Pharmacy Same as: Fernanda Proventil 200 ACTUAT Notes: Inactive [facility] Albuterol 0.09 Albuterol 90 2016 Medi ricky MG/ACTUAT Metered microgram/inh Center Dose Inhaler 8gm HFA WASTE: [ProAir HFA] Aerosol - Return to Pharmacy Same as: Fernanda, Proventil 200 ACTUAT 2 puff, Active [facility] Albuterol 0.09 INHALER, Q6H, 2016 Med ical MG/ACTUAT Metered PRN for Center Dose Inhaler wheezing, # 18 [ProAir HFA] gm, 0 Refill(s) Furosemide 40 MG 40 mg = 1 tab, Active [facility] Oral Tablet PO, Daily, # 30 2016 Medi ricky [Lasix] tab, 0 Center Refill(s) rivaroxaban 20 MG 20 mg = 1 tab, Active [facility] Oral Tablet PO, QPM, # 30 2016 Medica l [Xarelto] tab, 0 Center Refill(s) Lasix Notes: (Same Inactive [facility] as: Lasix) 2016 Medical MEDICATION Center WASTE Product Size: 40 mg Product Wasted: ___ mg Lisinopril Notes: (Same [place]active [place] as: Prinivil, 2016 [facility] Zestril) Center Plavix Notes: (Same Inactive [facility] As: Plavix) 2016 [facility] Aspirin Notes: Do not Inactive [place] crush or chew. 2016 Medical (Same As: Center Ecotrin) metoprolol Notes: (Same Inactive [facility] extended release as: Toprol XL) 2016 Medical May split tab, Center but do not crush. atorvastatin Notes: Same as No Longer [place] Lipitor Active 2015 Medical Artie Hydralazine Notes: (Same [place] Long[place] as: Apresoline) Active 2015 Medical Push over 5 Center minutes potassium Notes: (Same Inactive [place] phosphate-sodium as: Phos-NaK) 2015 edical phosphate 250 Each 1.5 gm pkt Ce nter mg-280 mg-160 mg has 250mg oral powder for phosphorous. reconstitution Mix w/2.5oz water and stir. heparin sodium, Notes: porcine No Longer [place] porcine 2500 heparin Active 2015 Medical UNT/ML Injectable Center Solution Insulin, Aspart, Notes: Roll in No Longer [place] Human palms of hands Active 2015 Medical gently; Do not Center shake vigorously. (Same as: NovoLOG) "single patient use only" WASTE: F/P - Black; E - Municipal Trash Bin Stable for 28 days at room temperature. Expires in days from D ate Dextrose 50% 25 gm, 50 mL, No Longer [place] Syringe Route: IVP, Active 2015 Medical Drug Form: INJ, Center Dosing Weight 123.409, kg, PRN, PRN Blood Glucose Results, Start date: 05/22/16 15:45:00 LUMBER GRADER, 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 day, Stop date: 06/21/16 15:44:00 LUMBER GRADER Glucagon 1 mg, Route: No Longer [place] IM, Drug form: Active 2015 Medical PDR/INJ, PRN, Center Dosing Weight 123.409, kg, PRN Blood Glucose Results, Start date: 05/22/16 15:45:00 LUMBER GRADER, 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 day, Stop date: 06/21/16 15:44:00 LUMBER GRADER Albuterol 0.833 Notes: (Same No Longer [facility] MG/ML / as: Duoneb) Active 2015 [facility] Ipratropium Art[place] 0.167 MG/ML Inhalant Solution [DuoNeb] Insulin Pen Novolog No Longer [place] Active 2015 Medical Misc/Other Center Metformin 500 mg = 1 tab, Active Cy as hydrochloride 500 PO, Daily 2016 Medi ricky MG Oral Tablet Center metoprolol 50 mg 50 mg = 1 tab, Active [place] oral tablet, PO, Daily 2015 [facility] extended release Artie Aspirin 81 MG 81 mg = 1 tab, No Longer H [place] Chewable Tablet PO, Daily Active [facility] allopurinol 100 100 mg = 1 tab, Active [place] mg oral tablet PO, Daily 2016 [facility] MAGNESIUM 400, PO, Daily Active [facility] [place] GLUCONATE 2015 [facility] non-formulary PO, Daily, Active [facility] s OMEGA [address]- [address] [place] [address] LNA-SLZ-BIRX Artie OIL (OMEGA-3 FISH OIL) 1000 MG (120 MH-180 MG)CAP, Refill(s) 0 lisinopril 5 mg 5 mg = 1 tab, Active [place] oral tablet PO, Daily 2015 [facility] Furosemide 20 MG 20 mg = 1 tab, No Longer [place] Oral Tablet PO, Daily Active [address] [place] [address] cholecalciferol 2,000 IntlUnit Active [facility] 2000 intl units = 1 cap, PO, 2015 Med ical oral capsule Daily Center atorvastatin 20 20 mg = 1 tab, Active [facility] mg oral tablet PO, Daily 2015 [facility] Colchicine 0.6 MG 0.6 mg = 1 cap, Active [facility] Oral Capsule PO, Daily 2015 [facility] Allergies, Adverse Reactions, Alerts Substance Category Reaction Severity Reaction Status Date Comments S ource type Reported pioglitazone Assertion Drug Active Data MH <sup>2</sup> allergy 2 migrated Me dical from [employer] on 10/23/14. Originally documented as ACTOS. Hives pioglitazone Assertion Drug Active Data MH <sup>1</sup> allergy 2 migrated [place] from [employer] on 10/23/14. Originally documented as ACTOS. Hives predniSONE<s Assertion Drug Active Data MH up>1</sup> allergy 4 migrated Medi ricky from [employer] on 10/23/14. Originally documented as PREDNISONE. predniSONE<s Assertion Drug Active Data MH up>2</sup> allergy 4 migrated [place] from [employer] on 10/23/14. Originally documented as PREDNISONE. predniSONE<s [...] l OBS ; Data Center, migrated from [facility],M GE Centricity H [place] on 07/28/2015. [place] Hx pneumococcal 05/22/2001 completed GE Result Medical vaccine<sup>2</liu Comment: Moo manley p> historical. [place] Migrated from Medica l OBS ; Data Center, migrated from [facility],M GE Centricity H [place] on 07/28/2015. [place] pneumococcal 02/19/2001 completed GE Result Med ical 23-valent Comment: Group, vaccine<sup>3</liu given. [place] p> Migrated from Medica l OBS ; Data Center, migrated from [facility],M GE Centricity H [place] on 07/28/2015. [facility] Results Order Name Results Value Reference Date Interpretation Comments Leila rce Range ELECTROLYT eGFR 20 01/21 Result Sugar Comment: The [facility] eGFR is calculated using the CKD-EPI [...] 12.4 12.0 - 01/21 Sugar 16.0 [facility] HEMATOLOGY MPV 8.9 7.4 - 10.4 01/21 [facility] HEMATOLOGY Platelet 211 133 - 450 [...] - 99 01/21 Result Sugar Comment: [facility] Critical Result(s) called to Sharon Soriano [...] Yellow 01/20 Sugar STOOL *NA* /2018 [facility] (01/20/19 5:14 PM) URINE AND UA Spec Grav 1.012 <=1.030 01/20 [place] STOOL /2018 Land URINE AND UA pH 5.0 5.0 - 8.0 01/20 [place] STOOL /2018 [place] URINE AND UA Turbidity Slight Clear 01/20 [place] STOOL *ABN* /2018 [facility] (01/20/19 5:14 PM) URINE AND UA [...] 0.00 - 01/20 [place] ENZYMES 0.40 [facility] CARDIAC Total CK 77 12 - [...] 7.4 - 10.4 01/20 Sugar /2018 [facility] HEMATOLOGY MCHC 32.9 32.0 - 01/20 [...] Large Negative 10/15 [place] STOOL *ABN* [facility] (10/15/17 9:08 AM) URINE AND UA Bacteria Moderate None Seen 10/15 [place] STOOL /HPF /HPF [place] URINE AND UA Mucus Few /LPF None Seen 10/15 [place] STOOL /LPF [place] URINE AND UA RBC 130 0 - 2 10/15 [place] STOOL [place] URINE AND UA Color Light Yellow Yellow 10/15 [place] STOOL *NA* [facility] (10/15/17 9:08 AM) URINE AND UA Glucose Negative Negative 10/15 [place] STOOL mg/dL mg/dL [place] URINE AND UA Protein Negative Negative 10/15 [place] STOOL mg/dL mg/dL [place] URINE AND UA Turbidity Marked Clear 10/15 [place] STOOL *ABN* [facility] (10/15/17 9:08 AM) URINE AND UA Spec Grav 1.005 <=1.030 10/15 Sugar STOOL [place] URINE AND UA <=1.0 0.1 - 1.0 10/15 [place] STOOL Urobilinogen mg/dL [facility] CHEM PANEL eGFR 27 09/15 Comment: The [facility] eGFR is calculated using the [...] Ca 1.15 1.05 - 09/15 MH 1.25 [facility] CHEM PANEL POC 12.9 12.0 - 09/15 Hemoglobin 16.0 [facility] CHEM PANEL POC 38.0 36.0 - 09/15 Hematocrit 48.0 /2016 [facility] CHEM PANEL POC AGAP 17.0 10.0 - 09/15 MH 20.0 [facility] CHEM PANEL POC 1.8 0.5 - 1.4 09/15 Creatinine [facility] CHEM PANEL POC BUN 40 7 - 22 09/15 [facility] CHEM PANEL POC Glucose 215 70 - 99 09/15 [facility] CHEM PANEL POC 3.7 3.5 - 5.1 09/15 Potassium [facility] CHEM PANEL POC Chloride 102 95 - 109 09/15 [facility] CHEM PANEL POC Carbon 26 24 - 32 09/15 Dioxide [facility] CHEM PANEL POC Sodium 140 135 - 145 09/15 [facility] CARDIAC Troponin-T <0.010 0.000 - 05/23 [facility] ENZ[address]ES [address] [facility] SPECIAL Hgb A1C 7.9 <=5.6 % 05/[address] [facility] [address] [facility] CHEM PANEL Magnesium 2.3 1.8 - 2.4 05/[address] [place] [address] [facility] CHEM PANEL Phosphorus 2.2 2.5 - 4.5 05/22 [facility] ELECTROLYT AGAP 11.9 10.0 - 05/[address] [place] [address] [facility] ELECTROLYT Creatinine 1.34 0.50 - 05/22 [facility] ES Lvl 1.40 /2015 [facility] ELECTROLYT Sodium Lvl 144 135 - 145 05/22 [facility] ES [facility] ELECTROLYT Glucose Lvl 132 70 - 99 05/22 [facility] ES [facility] ELECTROLYT BUN 22 7 - 22 05/22 [facility] ES [facility] ELECTROLYT CO2 26 24 - 32 05/[address] [facility] ELECTROLYT Calcium Lvl 9.2 8.5 - 10.5 05/[address] [facility] ELECTROLYT Chloride Lvl 110 95 - 109 05/[address] [place] [address] [facility] ELECTROLYT Potassium 3.9 3.5 - 5.1 05/22 [facility] ES Lvl [facility] ELECTROLYT eGFR 39 05/22 Result [facility] Comment: The Medical eGFR is Center calculated [...] Basophils 0.3 0.0 - 1.0 05/22 [facility] HEMATOLOGY Segs-Bands # 12.2 1.5 - 8.1 05/22 [facility] HEMATOLOGY Lymphocytes 0.5 1.0 - 5.5 05/22 [place] # /2015 [facility] HEMATOLOGY Monocytes # 0.1 0.0 - 0.8 05/[address] [facility] HEMATOLOGY Segs 94.7 45.0 - 05/[address] [place] [address] [facility] HEMATOLOGY Eosinophils 0.1 0.0 - 4.0 05/[address] [facility] HEMATOLOGY Lymphocytes 4.2 20.0 - 05/[address] [place] [address] [facility] HEMATOLOGY Monocytes 0.7 2.0 - 12.0 05/22 [facility] HEMATOLOGY PT 14.9 12.0 - 05/[address] [place] [address] [facility] HEMATOLOGY INR 1.15 0.85 - 05/[address] [place] [address] [facility] HEMATOLOGY PTT 34.4 22.9 - 05/22 [place] 35.8 /2015 [facility] HEMATOLOGY Platelet 237 133 - 450 05/22 [facility] HEMATOLOGY MPV 8.6 7.4 - 10.4 05/22 [facility] HEMATOLOGY RDW 14.4 11.5 - 05/22 [facility] [address] [facility] HEMATOLOGY MCHC 33.0 32.0 - 05/22 [facility] 36.0 /2015 [facility] HEMATOLOGY MCV 93.5 80.0 - 05/22 [facility] 98.0 /2015 [facility] HEMATOLOGY Hct 34.4 36.0 - 05/22 [place] 48.0 /2015 [facility] HEMATOLOGY MCH 30.9 27.0 - 05/22 [facility] [address] [facility] HEMATOLOGY Hgb 11.4 12.0 - 05/22 [facility] 16.0 /2015 [facility] HEMATOLOGY RBC 3.68 4.20 - 05/22 [facility] 5.40 /2015 [facility] HEMATOLOGY WBC 12.9 3.7 - 10.4 05/22 [facility] Pathology Reports No Data Provided for This Section Diagnostic Reports Report Value Date Source Chest 1view DX Clinical History : , - chest pain 01/20/2019 [facility] Exam : Portable AP view of the [...] Pulmonary Ventilation and Perfusion Alejandrina ging 05/22/2016 [facility] Medical ventilation/perfusio DATE: 05/22/2016 2:49 PM LUMBER GRADER Center n scan NM INDICATION: Dyspnea on [...] [place] Respitory Rate 18 01/21/2019 [facility] Heart Rate 57 01/21/2019 MH [facility] Systolic (mm Hg) 122 01/21/2019 MH [place] Diastolic (mm Hg) 78 01/21/2019 MH [place] L and Respitory Rate 18 01/21/2019 [facility] Heart Rate 60 01/21/2019 [facility] Temperature Oral (F) 97.8 F 01/21/2019 [place] Systolic (mm Hg) 116 01/21/2019 MH [place] Diastolic (mm Hg) 54 01/21/2019 MH [place] L and Respitory Rate 18 01/21/2019 [facility] Heart Rate 53 01/21/2019 [facility] Temperature Oral (F) 97.5 F 01/21/2019 [place] Weight 125.455 01/20/2019 [facility] BMI Calculated 44.64 01/20/2019 [facility] Height 167.64 cm 01/20/2019 MH [facility] Weight 124.8 01/20/2019 MH [facility] Weight 123.636 11/23/2018 Medical Grou p BMI [...] [place] Respitory Rate 18 10/15/2017 [facility] Heart Rate 63 10/15/2017 [facility] Systolic (mm Hg) 130 10/15/2017 [place] Diastolic (mm Hg) 73 10/15/2017 Sugar L and BMI Calculated 44.16 10/15/2017 [facility] Weight 124.091 10/15/2017 [facility] Heart Rate 63 10/15/2017 [facility] Respitory Rate 18 10/15/2017 [facility] Systolic (mm Hg) 163 10/15/2017 [place] Diastolic (mm Hg) 64 10/15/2017 [place] L and Temperature Oral (F) 97.5 F 10/15/2017 [place] Height 167.64 cm 10/15/2017 [facility] BMI Calculated 43.33 08/18/2017 Medical Gr oup [...] 06/09/2017 Medical Group BMI Calculated 41.93 09/15/2016 [facility] Height 167.64 cm 09/15/2016 [facility] Weight 117.841 09/15/2016 [facility] Systolic (mm Hg) 167 09/15/2016 [facility] Diastolic (mm Hg) 53 09/15/2016 [facility] Respitory Rate 17 09/15/2016 [facility] Heart Rate 57 09/15/2016 [facility] Systolic (mm Hg) 169 05/24/2016 [facility] dical Center Diastolic (mm Hg) 72 [facility]/24/[facility] 18 05/24/2016 [facility] Heart Rate 50 05/24/2016 [facility] [place] M.D. [facility] Temperature Oral (F) 97.2 F 05/24/2016 [facility] Systolic (mm Hg) 159 05/23/2016 [facility] Center Diastolic (mm Hg) 66 05/23/2016 [facility] edical Center Heart Rate 56 05/23/2016 [facility] Respitory Rate 18 05/23/2016 [facility] Temperature Oral (F) 97.8 F 05/23/2016 [facility] Respitory Rate 18 05/23/2016 [facility] Temperature Oral (F) 97.1 F 05/23/2016 [facility] Systolic (mm Hg) 139 05/23/2016 [facility] Center Diastolic (mm Hg) 92 05/23/2016 [facility] Heart Rate 64 05/23/2016 [facility] Weight 123.409 05/22/2016 [facility] BMI Calculated 43.91 05/22/2016 [facility] Height 167.64 cm 05/22/2016 [facility] Encounters Location Location Encounter Encounter Reason Attending ADM DC Stat us Source Details Type Number For Provider Date Date Visit Outpatient [id number] [facility]/03 [id number] Mohamed 05/22 05/24 [facility] 2 Kwan /2015 [facility] Bedded [id number] Lan 09/15 09/15 [place] [facility] 0 [facility] Outpatient [id number] SARY 12/06 Activ e [facility] 1 [place] [facility] [id number] [facility] 06/09 [id number] [place] 06/09 06/10 Cardiology 2 [facility] Outpatient [id number] ECHO VISIT 07/14 [facility]i ve [facility] [place] [facility] Ambulatory [id number] NURSE 07/14 07/14 M [facility] Cardiology Pre-Reg 3 VISIT /2017 [facility] Outpatient [id number] ECHO VISIT 07/21 [facility] [id number] [facility] 07/21 [facility] [id number] NURSE 07/21 07/22 M H Cardiology 4 VISIT /2017 [facility]ica l [facility] Outpatient [id number] [place] 07/21 07/22 Cardiology 5 [facility] Outpatient [id number] [facility] 08/18 Active [facility] 6 [facility] Outpatient [id number] [place] 08/18 08/19 Cardiology 6 [place] [facility] [id number] Rhett Reyes 10/15 10/15 [place] [facility] [id number] [facility] 11/17 Active [facility] 7 [facility] Outpatient [id number] [place] 11/17 11/18 [facility] Cardiology 7 [facility] Outpatient [id number] [facility] 05/11 Active [facility] 8 [facility] [id number] [place] 05/11 05/11 Cardiology Pre-Reg 8 Med ical [facility] Outpatient [id number] [facility] 06/21 Active [facility] 9 [facility] Amb[facility] [id number] Aretha [facility] 06/21 06/21 Cardiology Pre-Reg [facility] Outpatient [id number] [facility] 09/05 Active [facility] 1 [facility] Outpatient [id number] [place] 09/05 09/06 [facility] Cardiology 1 [facility] Outpatient [id number] [facility] 09/07 [facility] 0 [place] [facility] [id number] [place] 09/07 09/07 Cardiology Pre-Reg 0 [facility] Med ical [facility] Outpatient [id number] [place] 11/23 Active [facility] 2 [facility] Outpatient [id number] [place] 11/23 11/24 Cardiology 2 [facility] Observation [id number] [facility] 01/20 01/21 [facility] [place] [facility] Outpatient [id number] [place] 05/31 Active [facility] 3 [facility] Outpatient [id number] [place] 05/31 06/01 MH Cardiology 3 [place] [facility] Outpatient [id number] [place] 09/26 Active [facility] 4 [facility] Outpatient [id number] Lul 01/06 Active [facility] 6 [place] [facility] Outpatient [id number] Lul 01/06 01/07 M H Cardiology 6 [place] [facility] Outpatient [id number] Majid 01/16 Active [facility] 5 Shahram [facility] Ambulatory [id number] Majid 01/16 01/16 M H Cardiology Pre-Reg 5 Shahram /2019 [facility] Ambulatory [id number] Lul 02/23 02/23 M H Cardiology Pre-Reg 4 Corina /2019 Med ical [facility] Outpatient [id number] Ahmed 07/03 Active [facility] 7 [place] Procedures Procedure Code Date Perfomer Comments Source Bladder operation [id number] [facility]i ricky Group,[facility], [facility] Cardioversion [id number] Medical Group,[facility] Cataract surgery [id number] Medic al Group,[facility], [facility] Hysterectomy [id number] Medical Group,[facility], [facility] Knee [id number] bilateral in Medical arthroplasty<sup>1< 2006 and 2007 Gr oup, /sup> [facility] Tonsillectomy [id number] Medical Group,[facility], [facility] Breast biopsy and [id number] Medi ricky related procedures Group, [facility] Miscellaneous [id number] heart stents x2 Med ical operations<sup>2</s Group , up> [facility] Skin [id number] skin removal. Medical operation<sup>3</liu Group , p> [facility] Assessment and Plan Assessment and Plan Date Source Extracted from:Title: Discharge Summary * 01/21/2019 [facility] Author: Franco Estrada DO Date: 01/21/19 Discharge [...] Extracted from:Title: Clinical Document Author: Madisyn Powell NP Date: 01/20/19 Paged by nurse with c/o patient having c ouple loose bowel movements with very strong smell. and Streaks of blood noted in the stool as well with no signs of hemorrhoids. Will check stool for C. difficile and occult blood. D/w Dr Tam. Extracted from:Title: Clinical Document Author: Madisyn Powell LLUVIA Date: 01/20/19 History and Physical Code Status [...] Comment(s): Quit since April 2016 ( smoked [employer] to [facility] ED) Substance Abuse Details: Use: None. Allergies [...] Daily DORINA-FLOW SPRAY 1 spray, NASAL, Daily Palmer-3 oral capsule 1 tab, PO, BID Synthroid [...] by Shania Tam MD on 01/20/2019 06:39 MD addendum: patient seen and examined, here with acute on chronic dyspnea, sob has been going on for last 6 months but geting more bothersome, very weak today and felt "sick". will obtain enzymes and echo, consult cardiology. trace leg edema. Extracted from:Title: Hospitalist History and Physical 05/24 [facility] Author: Prince Kalani Patel MD Date: 05/22/16 [...] Beta evelin andACE-i Ordered: Admit/Condition 4.Atrial fibrillation [id number] -PLAN: 2-D Echo.Will discussabout AC for CVA [...] since April 2016 Social History TypeResponse 05/22/2016 [facility] Substance Abuse Use: None. Alcohol Never Smoking Status Former smoker; Type: Cigarettes; Previou s treatment: None; Ready to change: Yes; Concerns about tobacco use in household: No; Exposure to Tobacco Smoke None; Cigarette Smoking Last 365 Days Yes; Reg Smoking Cessation Counseling Yes1 1Quit since April 2016 Social History TypeResponse 05/22/2016 [facility] Substance Abuse Use: None. Alcohol Never Smoking [...]
--- OUTSIDE RECORDS SUMMARY | 2020-05-05 08:17 | XMS REPORT | Summary of Care ---
:1940 Author Organization [facility] [place] [place] Address [address] [place] [address] Care Team Providers Name Role Phone Jovanny Walter Primary Care Physician Encounter HQ LacyGeorgepaula([facility] [id number] Date(s): 02/24/20 - 02/24/20 [facility] [place] [address] [place] [address]- [phone] Discharge Disposition: Home or Self Care Attending Physician: Lul Arriaga MD Vital Signs No data available for this section Problem List Condition Effective Dates Status Health [...] [employer] on 11/22/14.7TWO YEARS AGO, TWO [id number] migrated from [employer] on 11/22/14. Allergies, Adverse Reactions, Alerts Substance Reaction Severity Status predniSONE1 Active Macrodantin Active pioglitazone2 Active NKDA Active traMADol3 Active 1Data migrated from [employer] on 10/23/14. Originally documented as PREDNISONE.2Data migrated from [employer] on 10/23/14. Originally documented as ACTOS. [id number] migrated from [employer] on 10/23/14. Originally documented as TRAMADOL. Medications No data available for this section Results No data available for this section Immunizations Given and Recorded Vaccine Date Status Refusal Reason Hx influenza vaccine-unspecified1 03/26/12 Given Hx pneumococcal vaccine2 05/22/01 Given pneumococcal 23-valent vaccine3 02/19/01 Given 1Result Comment: 03-26-12. Migrated from OBS ; Data migrated from [employer] on 07/28/2015.2Result Comment: historical. Migrated from OBS ; Data migrated from [employer] on 07/28/2015.3Result Comment: given. Migrated from OBS ; Data migrated from [employer] on 07/28/2015. Procedures Procedure Date Related Diagnosis Body Site Status Bladder operation Completed Breast biopsy and related procedures Completed Cardioversion Completed Cataract surgery Completed Cataract surgery Completed Hysterectomy Completed Knee arthroplasty1 Completed Miscellaneous operations2 Co mpleted Skin operation3 Completed Tonsillectomy Completed 1bilateral in 2006 and [id number] stents [id number] removal. Social History Social History Type Response [...]
--- OUTSIDE RECORDS SUMMARY | 2020-05-05 08:20 | XMS REPORT | Continuity of Care Document ---
:1940 Author Organization [facility] t Address [address] [place] [address] Care Team Providers Name Role Phone Jose Angel NICOLE, Manfred Molina Primary Care Physician [phone] Khoa Arriaga Attending Clinician Raghu Omalley Attending Clinician Iqra NICOLE C Attending Clinician Only, Test Attending Clinician Unavailable Yoko NICOLE Attending Clinician Kolton Starr Attending Clinician Yonatan Attending Clinician Kate Reyes Attending Clinician VISIT, CSL ECHO Attending Clinician Unavailable Franc Attending Clinician Madison Mckeon Attending Clinician Iqra NICOLE C Admitting Clinician Yonatan Admitting Clinician Ranjit Kwan Admitting Clinician Payers Payer Name Policy Type Policy Effective Date Expiration Date Sour ce Number HUMANA [id number] 2016 [place] MEDICAREHUMANA 00:00:00 [employer] MEDIC[employer] PPO/PFFS/ERS [id number] 2016 -PresentPPO Problems Condition Condition Condition Status Onset Resolution Last Treating Co mments Source Name Details Category Date Date Treatment Clinician Date Tobacco Tobacco Disease Active 2018-06 [place] abuse abuse 07-21 Methodi 00:00: st 00 SOB, WEAK Diagnosis Active 2019-01-21 Memoria 01-19 10:07:00 l SOB, 12:00: [place] WEAK 00 Active 01/19/2019 [place] Intermitte Intermitte Disease Active 2016-06 [place] nt asthma nt asthma 2-12 Meth yaakov 00:00: st 00 COPD COPD Disease Active 2016-06 [place] (chronic (chronic 2-12 Method i obstructiv obstructiv 00:00: st e e 00 pulmonary pulmonary disease) disease) with acute with acute bronchitis bronchitis SASCHA SASCHA Disease Active 2016-06 [place] (obstructi (obstructi 2-12 Me thodi ve sleep ve sleep 00:00: st apnea) apnea) 00 Dyspnea Dyspnea Disease Active 2016-06 [place] 2-12 Methodi 00:00: st 00 CHF CHF Disease Active [place] (congestiv (congestiv 8-20 Me thodi e heart e heart 00:00: st failure) failure) 00 Essential Essential Disease Active [place] ston hypertensi hypertensi 8-20 Me thodi on on 00:00: st 00 Type 2 Type 2 Disease Active [place] diabetes diabetes 8-20 Method i mellitus mellitus 00:00: st 00 Gout Gout Disease Active [place] 8-20 Methodi 00:00: st 00 AFIB/I48.2 Diagnosis Active 2016-09-15 Memoria ; HTN, DM - 10:17:00 l 00:00: [place] AFIB/I48.2 00 ; HTN, DM Active 09/14/2016 [facility] PROBABLE Diagnosis Active 2015-062016-05-27 M emoria PE 07-22 22:04:00 l PROBABLE 00:00: Stewart n PE 00 Active 6 [facility] Disorder Problem Active 2020-02-26 Mem oria of 10-25 21:43:01 l refraction Disorder 00:00: He rmann AND/OR of 00 accommodat refraction ion AND/OR (disorder) accommodat ion (disorder) Active 10/25/2013 Problem 02/26/2020 Data migrated from [employer] on 11/22/14. Medical Group,[facility] [place] Pseudophak Problem Active 2020-02-26 M jairoria ia 10-25 21:43:01 l (disorder) 00:00: [place] n Pseudophak 00 ia (disorder) Active 10/25/2013 Problem 02/26/2020 Data migrated from [employer] on 11/22/14. Medical Group,[facility] [place] Long-term Problem Active 2020-02-26 Me moria drug 01-30 21:43:01 l therapy 00:00: [place] (procedure Long-term 00 ) drug therapy (procedure ) Active 01/31/2012 Problem 02/26/2020 Data migrated from [employer] on 11/22/14. Medical Group,[facility] [place] Diabetic Problem Active 2010-062020-02-26 Mem oria complicati 07-02 21:43:01 l on Diabetic 00:00: Stewart n (disorder) complicati 00 on (disorder) Active 05/02/2011 Problem 02/26/2020 Data migrated from [employer] on 11/22/14. Medical Group,[facility] [place] Acute Problem Resolve 2020-02-26 Shady cordelia exacerbati d 21:43:01 l on of Acute [place] chronic exacerbati obstructiv on of e airways chronic disease obstructiv (disorder) e airways disease (disorder) Resolved Problem 02/26/2020 [facility] [place] Acute Problem Resolve 2020-02-26 Shady cordelia renal d 21:43:01 l failure Acute [place] syndrome renal (disorder) failure syndrome (disorder) Resolved Problem 02/26/2020 STAGE #3 Medical Group,[facility] [place] Diabetes Problem Resolve 2020-02-26 Me moria mellitus d 21:43:01 l (disorder) Diabetes He rmann mellitus (disorder) Resolved Problem 02/26/2020 Medical Group,[facility] [place] Asthma Problem Resolve 2020-02-26 Shady cordelia (disorder) d 21:43:01 l Asthma [place] (disorder) Resolved Problem 02/26/2020 Medical Group,[facility] [place] Hypertensi Problem Resolve 2020-02-26 Memoria ve d 21:43:01 l disorder, [place] systemic Hypertensi arterial ve (disorder) disorder, systemic arterial (disorder) Resolved Problem 02/26/2020 Medical Group,[facility] [place] Myocardial Problem Resolve 2020-02-26 Memoria infarction d 21:43:01 l (disorder) Stewart n Myocardial infarction (disorder) Resolved Problem 02/26/2020 TWO YEARS AGO, TWO STENT Medical Group,[facility] Atrial Problem Active 2020-02-26 Memor ia fibrillati 21:43:01 l on Atrial [place] (disorder) fibrillati on (disorder) Active Problem 02/26/2020 Medical Group,[facility] Benign Problem Active 2020-02-26 Memor ia essential 21:43:01 l hypertensi Benign Herm andrew on essential (disorder) hypertensi on (disorder) Active Problem 02/26/2020 Data migrated from [employer] on 11/22/14. Medical Group,[facility] Hyperlipid Problem Active 2020-02-26 M emoria emia 21:43:01 l (disorder) Stewart n Hyperlipid emia (disorder) Active Problem 02/26/2020 Data migrated from [employer] on 11/22/14. Medical Group,[facility] [place] Morbid Problem Active 2020-02-26 Memor ia obesity 21:43:01 l (disorder) Morbid Herm andrew obesity (disorder) Active Problem 02/26/2020 Medical [facility] Nuclear Problem Active 2020-02-26 Shady cordelia cataract 21:43:01 l (disorder) Nuclear [place] cataract (disorder) Active Problem 02/26/2020 Medical Group,[facility] [place] Coronary Problem Active 2020-02-26 Mem oria arterioscl 21:43:01 l erosis Coronary [place] n (disorder) arterioscl erosis (disorder) Active Problem 02/26/2020 [facility] [place] Diastolic Problem Active 2020-02-26 Me moria heart 21:43:01 l failure [place] (disorder) Diastolic heart failure (disorder) Active Problem 02/26/2020 [facility] Group, [place] Patient Problem Active 2020-02-26 Shady cordelia encounter 21:43:01 l status Patient [place] (finding) encounter status (finding) Active Problem 02/26/2020 Medical Group CHRONIC Diagnosis Active 2016-09-15 Me mclain ATRIAL 10:17:00 l FIBRILLATI CHRONIC Her [place] ON ATRIAL FIBRILLATI ON Active [place] Urinary Problem 2017-2017-10-18 2017-10-18 Memoria tract 4-22 01:10:00 01:10:00 l infection, Urinary 05:00: Her [place] site not tract 00 specified infection, site not specified 10/15/2017 10/18/2017 [place] Allergies, Adverse Reactions, Alerts Allergy Allergy Status [...] l >1</sup> >1</sup> 05:00: Stewart n 00 nitrofur nitrofur Active Memori a antoin<s antoin<s l up>1</burdick up>1</burdick Stewart n p> p> traMADol traMADol Active Memori a <sup>4</ <sup>4</ l sup> sup> [place] Family History Family Member Diagnosis Comments Start Date Stop Date Source Natural father Heart attack [place] [facility] Natural father Prostate cancer [place] [facility] Natural mother Heart disease [place] [facility] Natural mother Hypertension [facility] Social History Social Habit Start Date Stop Date Quantity Comments Source Sex Assigned [facility] ethodist Tobacco use and 2019-11-26 2019-11-26 Former user Amrit Moffett exposure 00:00:00 00:00:00 Alcohol intake 2019-11-26 2019-11-26 Current Amrit Maynard thodist 00:00:00 00:00:00 non-drinker of alcohol (finding) Social History 2016-05-22 2016-05-22 [facility] 20:05:58 20:05:58 Smoking Status Start Date Stop Date Source Former smoker 2019-11-26 00:00:00 2019-11-26 00:00:00 [place] [facility] Medications Ordered Filled Start Stop Current Ordering Indication Dosage Frequency Signature Comments Components Source Medication Medication Date Date Medication? Clinician (SIG) Name Name amLODIPine Yes 5 mg = 1 Mem oria 5 mg oral 7-14 tab, PO, l tablet 19:15: BID, 0 [place] 00 Refill(s) albuterol 2019- No 2{puff} Q6H Inhale 2 [place] (ProAir 11-25-02 puffs Methodi HFA) 90 00:00: [...] Take 40 mg [place] (LASIX) 40 26 by mouth Metho di mg tablet 13:32: daily. st 59 allopurinol 2018-06 Yes 100mg QD Take 100 H oujennifer (ZYLOPRIM) 1-26 mg by Methodi 100 MG 13:32: mouth st tablet 59 daily. rivaroxaban 2018-06 Yes 15mg Take 15 mg Marcus (XARELTO) 26 by mouth. Metho di 15 mg 13:32: st tablet 59 cholecalcif 2018-06 Yes 2000U QD Take 2,000 Marcus nevaeh, 1- Units by Methodi vitamin D3, 13:32: mouth st (VITAMIN 59 daily. D3) 2,000 unit capsule capsule guaiFENesin 2018-06 2019- No 200mg [id number] Take 10 mL Marcus (ROBITUSSIN -06-20 [id number] (200 mg Methodi ) 100 mg/5 00:00: 23:59 3D total) by s t mL syrup 00 :00 mouth 3 (three) times a day as needed for cough for up to 30 days. rivaroxaban Yes 15 mg = 1 M emoria 15 MG Oral 8-15 tab, PO, l Tablet 19:09: Daily, Xavier Braden [Xarelto] 00 90 tab, 3 Refill(s), Pharmacy: [id number] fluticasone Yes USE 1 [place] propionate 8-14 SPRAY IN Metho di (FLONASE) 00:00: EACH st 50 00 NOSTRIL mcg/actuati TWICE on nasal DAILY spray ipratropium Yes 3mL Q.25D Take 3 mL Marcus -albuterol 8-13 by Methodi (DUO-NEB) 00:00: nebulizati st 0.5-2.5 00 on 4 mg/3 mL (four) nebulizer times a day. levothyroxi Yes 50 Memori a ne 50 mcg 7-29 microgram l (0.05 mg) 16:01: = 1 tab, Herm andrew oral tablet 00 PO, Daily, 0 Refill(s) Lisinopril No Notes: Memor ia 7-29 (Same as: l 15:00: [place] Vela 00 Zestril) Allopurinol No Notes: Shady cordelia 01-21 (Same as: l 15:00: Zyloprim) Sampson 00 Insulin No Notes: Memoria Glargine 01-21 (Same as: l 100 UNT/ML 14:35: Lantus) Do H [place] Injectable 00 not hold Solution insulin [Lantus] without contacting [...] 25 gm, 50 Shady cordelia 50% Syringe 01-21 mL, Route: l 05:30: IVP, Drug Form: INJ, Dosing Weight 125.455, kg, PRN, PRN Blood Glucose Results, Start date: 01/21/19 0:30:00 CDT, 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 day, Stop date: 02/20/19 0:29:00 CDT, 0 Glucagon No 1 mg, Memoria 01-21 Route: IM, l 05:30: Drug form: [place] 00 PDR/INJ, PRN, Dosing Weight 125.455, kg, [...] l 22:00: Lipitor) Xarelto No Notes: Memoria 01-20 (Same as: l 22:00: Xarelto) [place] 00 Administer with food Amlodipine No Notes: Memor ia 01-20 (Same as: l 14:00: Norvasc) Aspirin No Notes: Memoria - Take with l 14:00: food. [place] 00 Saline No Notes: Memoria Flush 0.9% 01-20 (Same as: l 14:00: BD Posiflush) Protonix No Notes: Memoria - Tablet l 12:30: should not be chewed or crushed. (Same as: Protonix) Ipratropium No Notes: SEE Memoria [place] 0.2 01-20 RT l MG/ML 12:00: DOCUMENTAT Stewart n Inhalant 00 ION (Same Solution as:Atroven t) Synthroid No Notes: Memori a - Take 1 l 11:30: hour before or 2 hours after meal; Enteral feeds may interefere with the absorption of this medication .(Same as:Levothr oid, Synthroid) normal No 500 mL, Memoria saline 0.9% 01-20 Rate: 50 l IV 500 mL 10:12: [...] cordelia - Daily, 0 l 07:36: Refill(s) [place] 00 allopurinol Yes 100 mg = 1 Memoria 100 mg oral 01-20 tab, PO, l tablet 07:36: Daily, 0 [place] 00 Refill(s) Levothyroxi Yes 50 Memori a [...] l 62.5 mcg-25 07:36: Daily, # 1 [place] mcg 00 ea, 3 inhalation Refill(s) powder [...] 01-20 Route: IM, l 07:30: Drug form: [place] 00 PDR/INJ, PRN, Dosing Weight 124.8, kg, PRN [...] Methodi 70 MG 00:00: WEEK. st tablet rivaroxaban Yes 15 mg = 1 M emoria 15 MG Oral 5-31 tab, PO, l Tablet 18:49: QPM, # 90 Stewart n [Xarelto] 00 tab, 3 Refill(s), Pharmacy: [facility] lisinopril Yes 5 mg = 1 Mem oria 5 mg oral 5-31 tab, PO, l tablet 18:48: Daily, # [place] 00 90 tab, 3 Refill(s), Pharmacy: [facility] atorvastati Yes 20 mg = 1 M emoria n 20 mg 5-31 tab, PO, l oral tablet 18:47: QPM, # 90 H ermann 00 tab, 3 Refill(s), Pharmacy: [facility] amLODIPine Yes 5 mg = 1 Mem oria 5 mg oral 5-31 tab, PO, l tablet 18:46: Daily, # [place] 00 90 tab, 3 Refill(s), Pharmacy: [facility] rivaroxaban No 15 mg = 1 M emoria 15 MG Oral 5-31 tab, PO, l Tablet 18:42: QPM, 0 [place] [Xarelto] 00 Refill(s) lisinopril No 5 mg = 1 Mem oria 5 mg oral 5-31 tab, PO, l tablet 18:42: Daily, # [place] 00 90 tab, 3 Refill(s) metoprolol Yes 25 mg = 1 Me moria 25 mg oral 5-31 tab, PO, l tablet, 18:37: Daily, # Stewart n extended 00 90 tab, 3 release Refill(s), Pharmacy: [facility] [id number] Alendronic Yes 70 mg = 1 Me [...] No 100 mg = 1 Memoria dine -22 tab, PO, l hydrochlori 14:42: TID, PRN He rmandrew de 100 MG 00 Dysuria, X Oral Tablet 2 day, # 6 [Pyridium] tab, 0 Refill(s) Cephalexin Yes 500 mg = 1 M emoria 500 MG Oral 10-15 cap, PO, l Capsule 14:42: QID, X 10 Beronica nn [Keflex] 00 day, # 40 cap, 0 Refill(s) Acetaminoph No 1 tab, Shady cordelia en 325 MG / 10-15 Route: PO, l Hydrocodone 14:13: Drug Form: [place] Bitartrate 00 TAB, 5 MG Oral Dosing Tablet Weight [[place] 124.091, 5/325] kg, ONCE, STAT, Start date: 10/15/17 9:13:00 CDT, Stop date: 10/15/17 9:13:00 CDT Pyridium No Notes: Memoria 10-15 Give with l 14:12: meals. [place] 00 (Same as: Pyridium) Furosemide Yes 40 mg = 1 Me moria 40 MG Oral 1-26 tab, PO, l Tablet 17:16: BID, # 180 Beronica nn 00 tab, 3 Refill(s), Pharmacy: [facility] [id number] Levothyroxi 2016-06 Yes 25 Memori a ne Sodium 2-15 microgram l 0.025 MG 17:43: = 1 tab, Beronica nn Oral Tablet 00 PO, Daily, [Synthroid] # 90 tab, 3 Refill(s), Pharmacy: [facility] [id number] Levothyroxi 2016-06 No 25 Memori a ne Sodium 2-15 microgram l 0.025 MG 17:42: = 1 tab, Beronica nn Oral Tablet 00 PO, Daily, [Synthroid] 0 Refill(s) Ipratropium 2016-06 Yes 500 Memori a [place] 0.2 2-15 microgram l MG/ML 17:09: = 2.5 mL, [place] Inhalant 00 NEB, QID, Solution 0 Refill(s) metoprolol 2016-06 No 50 mg = 1 Me moria tartrate 50 2-15 tab, PO, l mg oral 17:09: BID, 0 [place] tablet 00 Refill(s) amLODIPine 2016-06 Yes 5 mg = 1 Mem oria 5 mg oral 2-15 tab, PO, l tablet 17:09: Daily, 0 [place] 00 Refill(s) lisinopril 2016-06 Yes 2.5 mg = 1 M emoria 2.5 mg oral 2-15 tab, PO, l tablet 17:09: Daily, 0 [place] 00 Refill(s) fluticasone 2016-06 Yes INHALATION Memoria furoate 2-15 , Q24H, 0 l 17:09: Refill(s) [place] 00 24 HR No Notes: Memoria Metoprolol 3-24 (Same as: l Tartrate 25 14:00: Toprol XL) [place] MG Extended 00 Do Not Release Crush Tablet [Toprol] Magnesium No Notes: Memori a Oxide 3-24 (Same as: l 14:00: Mag-Ox [place] 00 400) Magnesium oxide 484co=553y g elemental magnesium Dose=____m g magnesium oxide [...] n 3-23 (Same As: l 22:00: Lipitor) [place] 00 AMIODarone Yes 300 mg, Shady cordelia 300 [...] SPRAY 3-23 SPRAY, 1 l 14:20: spray, 00 NASAL, Daily atorvastati Yes 20 mg = 1 M emoria n 20 mg 3-23 tab, PO, l oral tablet 14:20: QPM Stewart n 00 allopurinol Yes 300 mg = 1 Memoria 300 mg oral 3-23 tab, PO, l tablet 14:20: Daily [place] 00 Probiotic No 1 cap, PO, Me moria Formula 3-23 Daily, 0 l oral 14:20: Refill(s) [place] capsule 00 Vitamin D3 Yes 2,000 Memori a 2000 intl - IntlUnit = l units oral 14:20: 1 tab, PO, H [place] tablet 00 Daily [place]-3 Yes 1 tab, PO, Shady cordelia oral 3-23 BID l capsule 14:20: [place] 00 Benadryl No Notes: Memoria 3-23 (Same as: l 12:24: Benadryl) [place] Valium No Notes: Memoria 3-23 (Same as: [...] Memoria 07-24 Route: IV, l 15:00: Daily, [place] 00 Dosing Weight 123.409, kg, Start date: 05/24/16 9:00:00 [employer], 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 day, Stop date: 06/22/16 9:00:00 [employer] albuterol 2015-06 Yes Notes: Memori a 07-24 Albuterol l 02:15: 90 [place] 00 microgram/ inh 8gm HFA WASTE: Aerosol - Return to Pharmacy Same as: Shalonda Michael 200 ACTUAT 2015-06 No Notes: Memor ia Albuterol 07-24 Albuterol l 0.09 01:47: 90 [place] MG/ACTUAT 00 microgram/ Metered inh 8gm Dose [...] tab, PO, l Tablet 01:44: Daily, # [place] [Lasix] 00 30 tab, 0 Refill(s) rivaroxaban 2015-06 Yes 20 mg = 1 M emoria 20 MG Oral 29 tab, PO, l Tablet 01:44: QPM, # 30 Stewart n [Xarelto] 00 tab, 0 Refill(s) Lasix 2015-06 No Notes: Memoria 07-23 (Same as: l 17:11: Lasix) [place] 00 MEDICATION WASTE Product Size: 40 mg Product Wasted: ___ mg Lisinopril 2015-06 No Notes: Memor ia 07-23 (Same as: l 15:00: Prinivil, [place] 00 Zestril) Plavix 2015-06 No Notes: Memoria 07-23 (Same As: l 15:00: Plavix) [place] 00 Aspirin 2015-06 No Notes: Do Memor ia 07-23 not crush l 15:00: or chew. [place] 00 (Same As: Ecotrin) metoprolol 2015-06 No Notes: Memor ia extended 07-23 (Same as: l release 15:00: Toprol XL) Herm andrew May split tab, but do not crush. atorvastati 2015-06 No Notes: Shady cordelia n 07-23 Same as l 03:00: Lipitor [place] 00 Hydralazine 2015-06 No Notes: Shady cordelia 07-23 (Same as: l 00:29: Apresoline ) Push over 5 minutes potassium 2015-06 No Notes: Memori a phosphate-s 07-22 (Same as: l odium 23:46: Phos-NaK) [place] phosphate 00 Each 1.5 250 mg-280 gm pkt has mg-160 mg 250mg oral powder phosphorou for s. Mix reconstitut w/2.5oz ion water and stir. heparin 2015-06 No Notes: Memoria sodium, 07-22 porcine l porcine 22:00: heparin [place] 2500 UNT/ML 00 Injectable Solution Insulin, 2015-06 No Notes: Memoria Aspart, 07-22 Roll in l Human 21:45: palms of [place] 00 hands gently; Do not shake vigorously . [...] Blood Glucose Results, Start date: 05/22/16 15:45:00 [employer], 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 day, Stop date: 06/21/16 15:44:00 [employer] Glucagon 2015-06 No 1 mg, Memoria 07-22 Route: IM, l 21:45: Drug form: [place] 00 PDR/INJ, PRN, Dosing Weight 123.409, kg, PRN Blood Glucose Results, Start date: 05/22/16 15:45:00 [employer], 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 day, Stop date: 06/21/16 15:44:00 [employer] Albuterol 2015-06 No Notes: Memori a 0.833 MG/ML 07-22 (Same as: l / 21:36: Duoneb) [place] Ipratropium 00 [place] 0.167 MG/ML Inhalant Solution [DuoNeb] Insulin Pen 2015-06 No Novolog Mem oria Heidrick 07-22 l Misc/Other 20:24: [place] 00 Metformin 2015-06 Yes 500 mg = 1 Me moria hydrochlori -27 tab, PO, l de 500 MG 20:12: Daily [place] Oral Tablet 00 metoprolol 2015-06 Yes 50 mg = 1 Me moria 50 mg oral -27 tab, PO, l tablet, 20:12: Daily [place] extended 00 release Aspirin 81 2015-06 No 81 mg = 1 Me moria MG Chewable -27 tab, PO, l Tablet 20:12: Daily [place] 00 allopurinol 2015-06 Yes 100 mg = 1 Memoria 100 mg oral 07-22 tab, PO, l tablet 20:12: Daily [place] 00 MAGNESIUM 2015-06 Yes 400, PO, Shady cordelia GLUCONATE 07-22 Daily l 20:12: [place] 00 non-formula 2015-06 Yes PO, Daily, Memoria ry 07-22 OMEGA 3- l 20:12: DHA-EPA-FI SH OIL (OMEGA-3 FISH OIL) 1000 MG (120 MH-180 MG)CAP, Refill(s) 0 lisinopril 2015-06 Yes 5 mg = 1 Mem oria 5 mg oral 07-22 tab, PO, l tablet 20:12: Daily [place] Furosemide 2015-06 No 20 mg = 1 [...] Systolic (mm Hg) 2020-01-07 19:12:00 Shady rial [place] Diastolic (mm Hg) 2020-01-07 19:12:00 [facility] orial [place] Heart Rate 2020-01-07 19:12:00 [facility] Height 2020-01-07 19:12:00 162.56 cm [facility] Weight 2020-01-07 19:12:00 [facility] BMI Calculated 2020-01-07 19:12:00 Kulwinder al [place] Systolic (mm Hg) 2019-05-31 19:58:00 Shady rial [place] Diastolic (mm Hg) 2019-05-31 19:58:00 Mem orial [place] Heart Rate 2019-05-31 19:58:00 [facility] Height 2019-05-31 19:58:00 167.64 cm [facility] Weight 2019-05-31 19:58:00 [facility] BMI Calculated 2019-05-31 19:58:00 Memori al [place] Systolic blood 2019-05-21 13:35:00 128 mm[Hg] Sunto n Pentec[employer]al pressure Diastolic blood 2019-05-21 13:35:00 74 mm[Hg] Nidia on Pentec[employer]al pressure Heart rate 2019-05-21 13:35:00 55 /min [place] [facility] Body temperature 2019-05-21 13:35:00 36.56 [place] [facility] Respiratory rate 2019-05-21 13:35:00 14 /min [place] [facility] Body weight 2019-05-21 13:35:00 123.378 kg [place] [facility] BMI 2019-05-21 13:35:00 43.90 kg/m2 [place] [facility] Oxygen saturation in 2019-05-21 13:35:00 98 /min [place] [facility] Arterial blood by Pulse oximetry Systolic (mm Hg) 2019-01-21 17:08:00 Shady rial [place] Diastolic (mm Hg) 2019-01-21 17:08:00 Mem orial [place] Temperature Oral (F) 2019-01-21 17:08:00 97.5 F [facility] [place] Respitory Rate 2019-01-21 17:08:00 Memori al [place] Heart Rate 2019-01-21 17:08:00 [facility] [place] Systolic (mm Hg) 2019-01-21 13:48:00 Shady rial [place] Diastolic (mm Hg) 2019-01-21 13:48:00 Mem orial [place] Respitory Rate 2019-01-21 13:48:00 Memori al [place] Heart Rate 2019-01-21 13:48:00 [facility] [place] Temperature Oral (F) 2019-01-21 13:48:00 97.8 F [facility] [place] Systolic (mm Hg) 2019-01-21 09:43:00 Shady rial [place] Diastolic (mm Hg) 2019-01-21 09:43:00 Mem orial [place] Respitory Rate 2019-01-21 09:43:00 Memori al [place] Heart Rate 2019-01-21 09:43:00 [facility] [place] Temperature Oral (F) 2019-01-21 09:43:00 97.5 F [facility] [place] Weight 2019-01-20 07:45:00 [facility] [place] BMI Calculated 2019-01-20 07:45:00 Memori al [place] Height 2019-01-20 07:45:00 167.64 cm [facility] [place] Weight 2019-01-20 04:43:00 [facility] [place] Weight 2018-11-23 18:30:00 [facility] [place] BMI Calculated 2018-11-23 18:30:00 Memori al [place] Height 2018-11-23 18:30:00 167.64 cm [facility] [place] Systolic (mm Hg) 2018-11-23 18:30:00 Shady rial [place] Diastolic (mm Hg) 2018-11-23 18:30:00 Mem orial [place] Heart Rate 2018-11-23 18:30:00 [facility] [place] Weight 2018-09-05 18:57:00 [facility] [place] Height 2018-09-05 18:57:00 167.64 cm [facility] [place] BMI Calculated 2018-09-05 18:57:00 Memori al [place] Systolic (mm Hg) 2018-09-05 18:57:00 Shady rial [place] Diastolic (mm Hg) 2018-09-05 18:57:00 Mem orial [place] Heart Rate 2018-09-05 18:57:00 [facility] [place] Weight 2017-11-17 15:40:00 [facility] [place] BMI Calculated 2017-11-17 15:40:00 Memori al [place] Height 2017-11-17 15:40:00 167.64 cm [facility] [place] Heart Rate 2017-11-17 15:40:00 [facility] [place] Systolic (mm Hg) 2017-11-17 15:40:00 Shady rial [place] Diastolic (mm Hg) 2017-11-17 15:40:00 Mem orial [place] Temperature Oral (F) 2017-10-15 14:50:00 97.5 F [facility] [place] Respitory Rate 2017-10-15 14:50:00 Memori al [place] Heart Rate 2017-10-15 14:50:00 [facility] [place] Systolic (mm Hg) 2017-10-15 14:50:00 Shady rial [place] Diastolic (mm Hg) 2017-10-15 14:50:00 Mem orial [place] BMI Calculated 2017-10-15 13:56:00 Memori al [place] Weight 2017-10-15 13:56:00 [facility] [place] Heart Rate 2017-10-15 13:56:00 [facility] [place] Respitory Rate 2017-10-15 13:56:00 Memori al [place] Systolic (mm Hg) 2017-10-15 13:56:00 Shady rial [place] Diastolic (mm Hg) 2017-10-15 13:56:00 Mem orial [place] Temperature Oral (F) 2017-10-15 13:56:00 97.5 F [facility] Height 2017-10-15 13:56:00 167.64 cm [facility] BMI Calculated 2017-08-18 16:41:00 [facility] Heart Rate 2017-08-18 16:41:00 [facility] Systolic (mm Hg) 2017-08-18 16:41:00 [facility] [facility] Diastolic (mm Hg) 2017-08-18 16:41:00 [facility] [place] Weight 2017-08-18 16:41:00 [facility] Height 2017-08-18 16:41:00 167.4 cm [facility] BMI Calculated 2017-07-21 16:38:00 [facility] Height 2017-07-21 16:38:00 167.64 cm [facility] Weight 2017-07-21 16:38:00 [facility] Systolic (mm Hg) 2017-07-21 16:38:00 [place] [facility] [place] Diastolic (mm Hg) 2017-07-21 16:38:00 [facility] [place] Heart Rate 2017-07-21 16:38:00 [facility] Weight 2017-06-09 16:57:00 [facility] BMI Calculated 2017-06-09 16:57:00 [facility] [place] Height 2017-06-09 16:57:00 167.64 cm [facility] Heart Rate 2017-06-09 16:57:00 [facility] Systolic (mm Hg) 2017-06-09 16:57:00 [facility] [facility] Diastolic (mm Hg) 2017-06-09 16:57:00 [facility] [place] BMI Calculated 2016-09-15 14:42:00 [facility] [place] Height 2016-09-15 14:42:00 167.64 cm [facility] Weight 2016-09-15 14:42:00 [facility] Systolic (mm Hg) 2016-09-15 13:00:00 [place] [facility] [place] Diastolic (mm Hg) 2016-09-15 13:00:00 [facility] [place] Respitory Rate 2016-09-15 13:00:00 [facility] [place] Heart Rate 2016-09-15 13:00:00 [facility] Systolic (mm Hg) 2016-05-24 01:25:00 [place] [facility] [place] Diastolic (mm Hg) 2016-05-24 01:25:00 [facility] Respitory Rate 2016-05-24 01:25:00 [facility] [place] Heart Rate 2016-05-24 01:25:00 [facility] Temperature Oral (F) 2016-05-24 01:25:00 97.2 F [facility] Systolic (mm Hg) 2016-05-23 22:04:00 [facility] [facility] Diastolic (mm Hg) 2016-05-23 22:04:00 [facility] Heart Rate 2016-05-23 22:04:00 [facility] Respitory Rate 2016-05-23 22:04:00 [facility] [place] Temperature Oral (F) 2016-05-23 22:04:00 97.8 F [facility] Respitory Rate 2016-05-23 17:16:00 [facility] Temperature Oral (F) 2016-05-23 17:16:00 97.1 F [facility] Systolic (mm Hg) 2016-05-23 17:16:00 [place] [facility] [place] Diastolic (mm Hg) 2016-05-23 17:16:00 [facility] Heart Rate 2016-05-23 17:16:00 [facility] Weight 2016-05-22 20:00:00 [facility] BMI Calculated 2016-05-22 20:00:00 [facility] [place] Height 2016-05-22 20:00:00 167.64 cm [facility] Procedures Procedure Date / Time Performed Performing Clinician [facility] e Bladder operation [facility] Cardioversion [facility] Cataract surgery [facility] Hysterectomy [facility] Knee [facility] arthroplasty<sup>1</sup> Tonsillectomy [facility] Breast biopsy and related [facility] [place] procedures Miscellaneous [facility] operations<sup>2</sup> Skin operation<sup>3</sup> [facility] [place] Plan of Care Planned Activity Planned Date Details Comments Source Future Scheduled 2020-01-25 INFLUENZA VACCINE [place] [facility] 00:00:00 [code = INFLUENZA VACCINE] Future Scheduled 2007 65+ PNEUMOCOCCAL [place] [facility] 00:00:00 VACCINE (1 of 1 - PPSV23) [code = 65+ PNEUMOCOCCAL VACCINE (1 of 1 - PPSV23)] Future Scheduled 1992 [facility]:00 [code = SHINGLES VACCINES (#1)] Future Scheduled 1952 DIABETES: RETINAL EYE [place] [facility] 00:00:00 EXAM [code = DIABETES: RETINAL EYE EXAM] Future Scheduled 1952 DIABETIC FOOT EXAM [place] [facility] 00:00:00 [code = DIABETIC FOOT EXAM] Future Scheduled 1950 URINE MICROALBUMIN [place] [facility] 00:00:00 [code = URINE MICROALBUMIN] Encounters Start End Encounter Admission Attending Care Care Encounter Source Date/Time Date/Time Type Type Clinicians Facility Department ID 2020-02-24 2020-02-24 Outpatient YAQUELIN Arriaga [facility] [id number] 14:00:00 14:00:00 Lul Couch 14 2020-01-17 2020-01-17 Outpatient Shahram [facility] [id number] 11:00:00 11:00:00 Jordan Krishnamurthy 15 2020-01-07 2020-01-07 Outpatient Corina [facility] [id number] 13:45:00 23:59:59 Lul Couch 16 2019-12-12 2019-12-12 [facility] [id number] 07:30:00 10:07:00 Encounter Iraida kyle [id number] [place] [id number] [facility] [id number] Pearson 07 2019-12-11 2019-12-11 Laboratory Only, [facility] [id number] 14:05:06 14:20:06 Only Test Abi [id number] [place] [id number] [place] [id number] 2019-11-26 2019-11-26 Outpatient YOKO [facility] [id number] [place] 00:00:00 00:00:00 ANNIKA 287 Meth yaakov 2019-05-31 2019-05-31 Outpatient Ro [facility] [id number] 14:00:00 23:59:[address] [facility] 13 2019-01-19 2019-01-21 Outpatient ARTHUR TamSL [facility] [id number] 23:41:51 15:04:00 Shania 2019-01-19 2019-01-19 Outpatient E [facility] MED [id number] [facility] 23:41:00 23:41:00 2018-11-23 2018-11-23 Outpatient Ro, [facility] [id number] 14:00:00 23:59:[address] [facility] 12 2018-09-07 2018-09-07 Outpatient Ro, [facility] [id number] 13:15:00 13:15:[address] [facility] 10 2018-09-05 2018-09-05 Outpatient oR, [facility] [id number] 13:00:00 23:59:[address] [facility] 11 2018-06-21 2018-06-21 Outpatient Ro, [facility] [id number] 11:30:00 11:30:[address] [facility] 09 2018-05-11 2018-05-11 Outpatient Ro, [facility] [id number] 10:30:00 10:30:[address] [facility] 08 2017-11-17 2017-11-17 Outpatient Ro, [facility] [id number] 10:15:00 23:59:[address] [facility] 07 2017-10-15 2017-10-15 Outpatient Rhett Reyes [facility] [id number] 08:51:00 09:50:00 Si 2017-08-18 2017-08-18 Outpatient Ro, [facility] [id number] 10:45:00 23:59:[address] [facility] 2017-07-21 2017-07-21 Outpatient Ro, [facility] [id number] 10:15:00 23:59:[address] [facility] 2017-07-21 2017-07-21 Outpatient VISIT, [facility] [id number] 10:00:00 23:59:59 NURSE CANDIDO CRAIG 2017-07-14 2017-07-14 Outpatient VISIT, [facility] [id number] 10:00:00 10:00:00 NURSE CSL 03 ECHO 2017-06-09 2017-06-09 Outpatient YAQUELIN Starr [facility] [id number] 10:30:00 23:59:59 [place] 02 2016-09-15 2016-09-15 Outpatient Franc [facility] [id number] 06:23:00 10:45:00 Lan 00 2016-05-22 2016-05-23 Outpatient Mike [facility] [id number] 13:52:00 20:20:00 [place] 32 Kishorkumar Results Test Description Test Time Test Comments [...] code = MCH) 31.4 pg 27.0-31.0 [facility] FgerlbeBOXISEPFSG7994-59-55 15:52:000.1[facility]annHEMATOLOGY 2019-01-21 15:52:000.3[facility] NmbqywuTBRMHQYLLH2707-72-00 15:52:000.4[facility] NqejzsnFLJKJPPJQY7587-01-44 15:52:001.7[facility] CwmerbuVDGFAJBHOC3964-31-01 15:52:000.8[facility] ElygfmaFZIRYSPXEJ9823-85-33 15:52:005.2[facility] OBADJIQHDC9361-00-56 15:52:004.3[facility] LjmjuwsQLQGDZBCVN4684-22-67 15:52:00 67.6[facility] BwmgvavHDSUYCGKDH9259-11-72 15:52:005.6[facility] HermannHEMATOLOGY 2019-01-21 15:52:0021.7[facility] HmsaxndLDAGZYWQJQBU3070-36-92 15:51:96225 [facility] CytfsukNPCMYOIGYQOA6583-22-13 15:51:0022[facility] HermannELECTROLYTES 2019-01-21 15:51:0011.0[facility] IrjriaoVTSSAQZGLOBD4549-46-72 15:51:008.8 [facility] YpjotjgLZJQETGCPKNE3408-30-69 15:51:05542Yvvgznxw HermannELECTROLYTES 2019-01-21 15:51:002.32[facility] DiluoysZKCPQYKYVSYW9844-59-37 15:51:0063[facility] PcrbjdzJPOYUGTEKPJS4344-01-28 15:51:005.0[facility] DoxttxpHVXHFQUPCHVU2560-33-83 15:51:63788Kzunvcng HermannURINE AND PLUGX1825-86-37 22:14:00Light Yellow *NA*(01/20/19 5:14 PM)[facility] ETUMS1678-21-63 22:14:00 Test Item Value Reference Range Interpretation Comments UA Spec Grav (test code = UA Spec 1.012 1 Grav) [facility] XEELV1032-15-64 22:14:00 Test Item Value Reference Range Interpretation Comments UA pH (test code = UA pH) 5.0 1 5.0-8.0 [facility] SMSGJ1304-95-44 22:14:00Slight *ABN*(01/20/19 5:14 PM) [facility] FCTNP7541-38-01 22:14:001[facility] NMGUA1157-36-02 22:14:00Negative (01/20/19 5:14 PM)[facility] WRGHR1499-00-96 22:14:00Negative (01/20/19 5:14 PM)[facility] GZAFJ5169-85-35 22:14:00Negative (01/20/19 5:14 PM)[facility] AND LLCBD2423-30-33 22:14:00<1[facility] AND XCLZA4048-69-82 22:14:00 Negative *NA*(01/20/19 5:14 PM)[facility] HermannCARDIAC XBAXEJC3586-71-21 15:14:00 <0.02[facility] HermannCARDIAC BXRHUSH9567-45-17 10:10:00<0.02[facility] VlsriloRRJQVA2948-12-49 10:10:00 Test Item Value Reference Range Interpretation Comments VLDL (test code = VLDL) 21 1 [facility] WxxntpnUBBVEI2045-13-52 10:10:56620Sgnpcmjq DuubwbgYBNOZD8599-25-17 10:10:0079[facility] LdrfhrhQCWNJZ7741-29-04 10:10:0040[facility] HermannLIPIDS 2019-01-20 10:10:00 Test Item Value Reference Range Interpretation Comments CHD Risk (test code = CHD Risk) 1.98 1 3.90-5.80 [facility] SdmozlbSYKWOU2770-59-33 10:10:0018[facility] HermannCARDIAC ENZYMES 2019-01-20 05:38:00<0.02[facility] HermannCARDIAC ARLKPSR1626-28-27 05:38:0077 [facility]annCARDIAC KEWNJWV1583-64-04 05:38:001.8[facility] HermannCARDIAC BNYBRVP5118-22-69 05:38:05541Mmpwmdaz HermannCARDIAC ZJHFDES0204-70-33 05:38:00 Test Item Value Reference Range Interpretation Comments CK MB Index (test code = CK MB Index) 2.3 1 <=2.5 [facility] HermannCHEM KFFKV9254-88-69 05:38:0020[facility] HermannCHEM PANEL 2019-01-20 05:38:0022[facility] HermannCHEM WEPBD0265-46-56 05:38:003.9[facility] HermannCHEM CDAGO9834-41-45 05:38:0025[facility] HermannCHEM EBHZB8878-18-27 05:38:008.9[facility] HermannCHEM WAOYA1234-90-12 05:38:007.2[facility] HermannCHEM QPFAK0067-63-32 05:38:003.3[facility] HermannCHEM GQUZS5882-23-93 05:38:00 Test Item Value Reference Range Interpretation Comments A/G Ratio (test code = A/G Ratio) 1.2 1 0.7-1.6 [facility] JJQHM8911-71-14 05:38:0021[facility] HermannCHEM PANEL 2019-01-20 05:38:42875Ehmewpyj HermannCHEM TEOAG0986-49-16 05:38:00 Test Item Value Reference Range Interpretation Comments B/C Ratio (test code = B/C Ratio) 29 1 6-25 [facility] HermannCHEM SZRAS6890-32-73 05:38:000.3[facility] HermannCHEM PANEL 2019-01-20 05:38:0012.1[facility] HermannCHEM KSNSP9459-95-92 05:38:0067[facility] HermannCHEM CPOUF6426-17-42 05:38:002.34[facility] HermannCHEM FADOP2937-83-56 05:38:62025Mjiukjaz HermannCHEM DZEHT7846-34-01 05:38:20722Eikzivcx HermannCHEM TOEYI1956-26-62 05:38:004.1[facility] HermannCHEM WQARS4529-38-70 05:38:31095 [facility]YhnggyuBTSUXBMXOC8114-17-49 05:38:00 Test Item Value Reference Range Interpretation Comments PTT (test code = PTT) 38.0 s 22.9-35.8 [facility] CypressLqhybbjGIKERNDQWE8256-85-69 05:38:00 Test Item Value Reference Range Interpretation Comments INR (test code = INR) 1.33 1 0.85-1.17 [facility]GfwosnpTWLOKAICOM5335-52-14 05:38:00 Test Item Value Reference Range Interpretation Comments PT (test code = PT) 16.2 s 12.0-14.7 [facility]anoSxulmvsSTYQJJYHKW4993-72-55 05:38:000.53[facility]annHEMATOLOGY 2019-01-20 05:38:008.6[facility] LvuloryMFNIVAKTUB0496-60-70 05:38:0032.9[facility] LjfvhioUESLDUBPIS5541-35-25 05:38:0014.7[facility] GtqixxuFMYZHAIDZY9123-65-12 05:38:003.79[facility] TpxemqbOCFSHODGWU6989-30-17 05:38:0010.9[facility] AFJMCDKPQP9878-57-36 05:38:00 Test Item Value Reference Range Interpretation Comments MCH (test code = MCH) 31.2 pg 27.0-31.0 [facility] SbwzpowKNCEMLYKFA3602-55-78 05:38:0036.0[facility] HermannHEMATOLOGY 2019-01-20 05:38:15720Rpotmrhr AzmkzsuFKYZDREHLG2596-37-31 05:38:0011.8[facility] RyuihvfGNXDUEOICF2730-39-27 05:38:0094.9[facility] DykvyhsHSZFICFLHF2176-36-90 05:38:000.4[facility] DrqqjrbYGGAUJYDWG3395-51-03 05:38:000.6[facility] GXHQLTIJZY0607-66-57 05:38:002.4[facility] HxiyksiNVTXLHFVJG8708-65-12 05:38:007.4 [facility] LfktnbeZXALHPBNXF1352-80-78 05:38:0021.6[facility] HermannHEMATOLOGY 2019-01-20 05:38:0067.5[facility] DjfmaqcVQGQRTNXTH8754-84-52 05:38:000.1[facility] OhhpfrfHPOIVZPEPL1936-29-77 05:38:003.8[facility] BarxspqTBVMGYLESL2093-63-09 05:38:005.9[facility] ZdteavoGECQYZLIRL4129-15-64 05:38:001.2[facility]annURINE AND SOCMB8940-28-76 14:08:00Large *ABN*(10/15/17 9:08 AM)[facility] AND EJPAC9854-44-40 14:08:00 Test Item Value Reference Range Interpretation Comments UA pH (test code = UA pH) 5.0 1 5.0-8.0 [facility] AND RFNHJ4209-75-69 14:08:00>182[facility]annUR[facility] AND QIKQC5284-85-85 14:08:00Negative *NA*(10/15/17 9:08 AM)[facility] AND TPVNR0969-76-23 14:08:00Negative (10/15/17 9:08 AM)[facility] AND ZYPET1298-56-05 14:08:00Large *ABN*(10/15/17 9:08 AM)[facility] AND FACUW0627-34-83 14:08:26834Fxnzzalm HermannURINE AND NWUUN7050-19-78 14:08:00 Light Yellow *NA*(10/15/17 9:08 AM)[facility] AND ZRBKK0223-35-55 14:08:00Marked *ABN*(10/15/17 9:08 AM)[facility] AND AGRED0843-67-83 14:08:00 Test Item Value Reference Range Interpretation Comments UA Spec Grav (test code = UA Spec 1.005 1 Grav) [facility]annCHEM VGWNU7997-36-21 13:05:0027[facility] HermannCHEM PANEL 2016-09-15 13:05:001.15[facility] HermannCHEM PPYMX2480-41-16 13:05:0012.9[facility] HermannCHEM HNZNZ3858-17-40 13:05:0038.0[facility] HermannCHEM VUBBH3712-49-82 13:05:0017.0[facility] HermannCHEM DOEYP6187-95-62 13:05:001.8[facility] HermannCHEM MAPJZ0834-79-37 13:05:0040[facility] HermannCHEM QRKEC7805-12-96 13:05:77426 [facility] HermannCHEM CIZYR6791-53-45 13:05:003.7[facility] HermannCHEM PANEL 2016-09-15 13:05:83688Ifypxymg HermannCHEM TYGYT5375-35-76 13:05:0026[facility] HermannCHEM MAJGV8148-92-61 13:05:38152Bfppnlok HermannCARDIAC MSWSCLY2425-93-80 02:25:00<0.010[facility] HermannSPECIAL MTLBMYAWE2699-35-25 02:25:007.9[facility] HermannCHEM MJPLV5094-94-43 21:10:002.3[facility] HermannCHEM WEUQS8281-02-64 21:10:002.2[facility] PoltbgnHOVKBZHTHFNY4376-52-38 21:10:0011.9[facility] JZIVZNAVILBT9235-19-08 21:10:001.34[facility] WqyhtoxIRQAZDXUSIVT6017-80-38 21:10:81610Fkiakglw EbfiilpUNMQIQEQLBSL8017-67-62 21:10:55594[facility]efwqvjb [place] VZFODKSOXVGI8651-55-41 21:10:0022[facility] ZirbqucGDHYJESSPWVS7408-16-69 21:10:00 26[facility] SufwbreBUYFYGZDDKKF6656-27-15 21:10:009.2[facility] HermannELECTROLYTES 2016-05-22 21:10:37191Rifapemm WuenohgSQHCSRRUZYAT8150-90-62 21:10:003.9[facility] UkfyhblQMJPOGRDCLAX0404-46-41 21:10:0039[facility] GzixqbwICJOQIBXSZ9584-88-45 21:10:000.3[facility] UxteqkhHSXUDNKGRQ3631-47-23 21:10:0012.2[facility] MUBXOCAVWH0788-12-69 21:10:000.5[facility] CkqwpqzQXJWOHUCKL9675-18-59 21:10:000.1 [facility] CyxgswsDAUFTHREGM7466-17-83 21:10:0094.7[facility] HermannHEMATOLOGY 2016-05-22 21:10:000.1[facility] IonuuyiWVIOEQZZXZ0738-48-99 21:10:004.2[facility] PlgwwjfMJWLJKMMWV9688-39-32 21:10:000.7[facility] BvxthutYOLCICIEAG0307-37-77 21:10:00 Test Item Value Reference Range Interpretation Comments PT (test code = PT) 14.9 s 12.0-14.7 [facility] KkfykgqKREKNFJVSG4121-43-49 21:10:001.15[facility] HermannHEMATOLOGY 2016-05-22 21:10:00 Test Item Value Reference Range Interpretation Comments PTT (test code = PTT) 34.4 s 22.9-35.8 [facility] HclfsrnWDONPQBUAO7758-03-90 21:10:49210Qeeshkau HermannHEMATOLOGY 2016-05-22 21:10:008.6[facility] VxttmkuDWDGTRZQRQ0215-72-58 21:10:0014.4[facility] YhjmesnKOIXZDOIGH8425-58-79 21:10:0033.0[facility] UkraaygQEZVAIAHQN6210-44-11 21:10:0093.5[facility] BxygkhyDHKATIMHUU4029-33-72 21:10:0034.4[facility] [place] SUKSTVNRZJ0817-56-51 21:10:00 Test Item Value Reference Range Interpretation Comments MCH (test code = MCH) 30.9 pg 27.0-31.0 [facility] AzobewlGIINMKSGGH2162-66-72 21:10:0011.4[facility] HermannHEMATOLOGY 2016-05-22 21:10:003.68[facility] FpgawosCQCGECQCOH2747-49-78 21:10:0012.9[facility]
--- NOTE | 2020-05-05 08:38 | RAD REPORT ---
EXAM DESCRIPTION: RAD - Chest Pa And Lat (2 Views) - 05/05/2020 8:29 am CLINICAL HISTORY: STAT, PREOP, SAME DAY SURGERY Chest pain. COMPARISON: Chest Pa And Lat (2 Views) dated 01/08/2020; Chest Pa And Lat (2 Views) dated 10/31/2018 FINDINGS: The lungs are clear. The heart is moderately enlarged in size. No displaced fractures.
[2020-05-05 09:03] LABS: Absolute Lymphocytes (CBC) 1.1 K/uL (0.7-4.9); Basophils % 0.5 % (0-1.3); Hematocrit 36.9 % (36.0-45.0); MPV 8.9 fL (7.6-11.3); RBC Red Blood Cell Count 3.86 M/uL (3.86-4.86)
[2020-05-05] MEDS ORDERED: CEFAZOLIN/SWI 1gm 1 GM/10 ML SYR ONE (09:22)
[2020-05-05] MEDS ORDERED: NA CHLORIDE 0.9% 1,000 ML ONE (09:22)
[2020-05-05 09:28] LABS: Potassium 5.6 mmol/L (3.5-5.1)
[2020-05-05] MEDS ORDERED: INSULIN -REGULAR HUMAN 50 UNIT/0.5 ML ML ONE (10:28)
[2020-05-05] MEDS ORDERED: INSULIN -REGULAR HUMAN 50 UNIT/0.5 ML ML IV ONE (10:45)
[2020-05-05] MEDS ORDERED: LIDOCAINE 1% MPF 30 ML VIAL ONE (11:23)
--- NOTE | 2020-05-05 12:04 | EKG ---
Test Date: 2020-05-05 Test Time: 09:58:56 Founder And Ceo: ADRIAN MEASUREMENT RESULTS: Intervals: Rate: 51 RI: QRSD: 88 QT: 440 QTc: 405 [place]: P: RI: QRS: 50 T: 89 INTERPRETIVE STATEMENTS: Atrial fibrillation with slow ventricular response with a competing junctional pacemaker Cannot rule out Anterior infarct, age undetermined Abnormal ECG Compared to ECG 12/10/2014 14:57:52 Sinus rhythm no longer present Ventricular premature complex(es) no longer present First degree AV block no longer present ST (T wave) deviation no longer present Possible ischemia no longer present Myocardial infarct finding still present Electronically Signed On 05-05-20 12:02:59 DECKHAND MAINTENANCE by Gregory Hollis
[2020-05-05] MEDS ORDERED: propofoL 200 MG/20 ML VIAL IV ONE (12:40)
[2020-05-05] MEDS ORDERED: FENTANYL CITR 100 MCG/2 ML ONE (12:41)
[2020-05-05] MEDS ORDERED: LIDOCAINE 1% MPF 5 ML VIAL ONE (12:41)
[2020-05-05] MEDS ORDERED: KETOROLAC 30 MG/ML INJ ONE (12:58)
[2020-05-05] MEDS ORDERED: ONDANSETRON 4 MG/2 ML VIAL ONE (13:04)
[2020-05-05] MEDS ORDERED: GLYCOPYRROLATE 0.2 MG/ML SYR ONE (13:12)
[2020-05-05] MEDS ORDERED: HYDROCODONE/APAP 7.5/325 MG TAB ONE (14:59)
--- NOTE | 2020-05-05 16:04 | OP ---
Date of Procedure: 05/05/2020 Surgeon: Nishant Costa MD Harnessmaker: None. Preoperative Diagnosis: Right groin infected cyst. Postoperative Diagnosis: Right groin infected cyst. Procedure: Wide excision of right groin infected cyst 5 x 3 cm to subcutaneous tissue. Estimated Blood Loss: Minimal. Specimens: Infected cyst. Culture And Sensitivity Findings: As above. Anesthesia: General. Complications: None. Disposition: The patient tolerated the procedure in stable condition, taken to Recovery in good gene ral condition. Procedure In Detail: The patient was brought to the OR and placed in supine position. General anest hesia was begun. Patient was placed in lithotomy position. Prepped and draped in the usual sterile fashion. In the right inguinal crease lateral to the labia majora and down toward the buttocks regio n, a 5 x 3 cm hard area was identified with a necrotic center and redness with minimal purulence. Cu ltures were done. Entire cyst was excised. Wound was irrigated. Bleeding was controlled cautery. It was down to the deep subcu tissue. Bleeding was controlled with cautery and then wet-to-dry cira l saline dressing change applied. Patient tolerated the procedure in stable condition, taken to [facility] in good general condition. Discharge Note: The patient will go to Day Surgery and home when stable. Disposition: Home. Condition: Stable. Discharge Instructions: Resume home medications and diet. Activity as tolerated. No heavy lifting. Remove outer dressing in a.m. Wet-to-dry normal saline dressing changes daily. Teach patient's darrick webber. Cipro 500 mg p.o. q.12., Tylenol No.3 one tablet p.o. q.4 p.r.n. pain. Follow up in my office in 2 weeks. Call for appointment. /MODL Voice ID: [id number] Report ID: [id number]
[2020-05-05 16:15] VITALS: BP 144/58; TEMP 97.2; O2SAT 98
== END 2020-05-05 15:30 | disposition home or self-care (01) ==
LOC: OR 07:58
PROVIDERS: ATTEND Surgery
PROC: 0HBAXZZ Excision of Inguinal Skin, External Approach (ICD-10-PCS; principal; 2020-05-05 11:15)
DX: L72.0 Epidermal cyst (principal); L02.214 Cutaneous abscess of groin; F17.210 Nicotine dependence, cigarettes, uncomplicated; R06.83 Snoring; I25.2 Old myocardial infarction; Z95.5 Presence of coronary angioplasty implant and graft; J44.9 Chronic obstructive pulmonary disease, unspecified; I25.10 Atherosclerotic heart disease of native coronary artery without angina pectoris; I12.9 Hypertensive chronic kidney disease with stage 1 through stage 4 chronic kidney disease, or unspecified chronic kidney disease; N18.9 Chronic kidney disease, unspecified; Z79.82 Long term (current) use of aspirin; Z79.01 Long term (current) use of anticoagulants; H91.90 Unspecified hearing loss, unspecified ear; E07.9 Disorder of thyroid, unspecified; I48.91 Unspecified atrial fibrillation
CPT/HCPCS: 36415; 71046; 80048; 82947; 85025; 87070; 87075; 87205; 88304; 93005; J0690; J2405; J2704; J3010; J7030

== ENCOUNTER 2022-02-02 07:02 | Day surgery (SDC) | payer OTHER ==
[2022-01-31 13:57] LABS: Absolute Lymphocytes (CBC) 1.5 K/uL (0.7-4.9); Hematocrit 34.4 % (36.0-45.0); Lymphocytes % 19.2 % (15.3-44.8); MCV 90.7 fL (80-100); MPV 8.6 fL (7.6-11.3); RBC Red Blood Cell Count 3.79 M/uL (3.86-4.86)
[2022-01-31 14:04] LABS: SARS-CoV-2 Antigen Rapid Res Negative (Negative)
--- NOTE | 2022-01-31 14:24 | RAD REPORT ---
EXAM DESCRIPTION: RAD - Chest Pa And Lat (2 Views) - 01/31/2022 1:52 pm CLINICAL HISTORY: Pre op pending abscess surgery COMPARISON: Chest Pa And Lat (2 Views) dated 05/05/2020; Chest Pa And Lat (2 Views) dated 01/08/2020; Chest Pa And Lat (2 Views) dated 10/31/2018 FINDINGS: Lines: None. Lungs: No evidence of edema or pneumonia. Pleural: No significant pleural effusions or pneumothorax. Cardiac: The heart size is within normal limits. Bones: No acute fractures. Other: IMPRESSION: No acute cardiopulmonary disease.
[2022-01-31 14:31] LABS: Potassium 5.1 mmol/L (3.5-5.1)
--- NOTE | 2022-02-01 10:39 | EKG ---
Test Date: 2022-01-31 Test Time: 13:20:27 Inspector Scales: GAGAN MEASUREMENT RESULTS: Intervals: Rate: 57 IA: QRSD: 88 QT: 430 QTc: 418 [place]: P: IA: QRS: 0 T: 86 INTERPRETIVE STATEMENTS: Atrial fibrillation with slow ventricular response with premature ventricular or aberrantly conducted complexes Low voltage QRS Inferior infarct, age undetermined Cannot rule out Anterior infarct, age undetermined Abnormal ECG Compared to ECG 05/05/2020 09:58:56 Ventricular premature complex(es) now present Low QRS voltage now present Myocardial infarct finding still present Electronically Signed On 02-01-22 10:36:15 CDT by Gregory Hollis
[2022-02-02] MEDS ORDERED: CEFAZOLIN SODIUM 1 GM/VIAL ONE (07:50)
[2022-02-02] MEDS ORDERED: NA CHLORIDE 0.9% 1,000 ML ONE (07:50)
[2022-02-02] MEDS ORDERED: BUPIVACAINE 0.5% PF 10 ML VIAL ONE (08:28)
[2022-02-02] MEDS ORDERED: ONDANSETRON 4 MG/2 ML VIAL ONE (08:31)
[2022-02-02] MEDS ORDERED: MIDAZOLAM HCL 2 MG/2 ML INJ ONE (08:31)
[2022-02-02] MEDS ORDERED: FENTANYL CITR 100 MCG/2 ML ONE (08:31)
[2022-02-02] MEDS ORDERED: LIDOCAINE 1% MPF 5 ML VIAL ONE (08:31)
[2022-02-02] MEDS ORDERED: propofoL 200 MG/20 ML VIAL IV ONE (08:31)
[2022-02-02] MEDS ORDERED: ACETAMINOPHEN 500 MG TAB ONE (09:19)
[2022-02-02] MEDS ORDERED: HYDROCODONE/APAP 7.5/325 MG TAB PO PRN (10:46)
[2022-02-02 10:51] VITALS: O2SAT 99
--- NOTE | 2022-02-02 10:55 | P.OP ---
Date of Service: 02/02/22 Preop diagnosis: Infected cyst left perineum Postop diagnosis: Same Procedure performed: Excisional debridement of the left perineal infected cyst 6 x 3 cm Surgeon: Nishant Costa MD Radiographer Mammographer: None Estimated blood loss: Minimal Specimen: Infected fluid and debridement tissue Findings: As above Anesthesia: General Complications: None Drains: None Fluids and blood products: Nonapplicable Disposition: Recovery room Operative note: Patient brought to the OR and placed in the supine position. General anesthesia begun. Patient placed in lithotomy position. The skin around the infected perineal cyst on the left side was injected with 0.5% Marcaine. 15 blade used to make a incision, approximately 6 x 3 cm to excise the cyst wall and contents. There was fluid inside the infected cyst which was removed and cultured. Granulation tissue was debrided as well. Wide excision was done down to the healthy subcutaneous fat and then the entire debridement tissue was sent to pathology as specimen. Wound irrigated and bleeding controlled with cautery. Wet-to-dry normal saline dressing change applied. Patient taught the procedure in stable condition and taken recovery room in good general condition. CC:
[2022-02-02] MEDS ORDERED: INSULIN -REGULAR HUMAN 50 UNIT/0.5 ML ML ONE (11:03)
[2022-02-02 13:19] VITALS: BP 114/57; TEMP 96.3
== END 2022-02-02 12:05 | disposition home or self-care (01) ==
LOC: OR 07:02
PROVIDERS: ATTEND Surgery
PROC: 0JBB0ZZ Excision of Perineum Subcutaneous Tissue and Fascia, Open Approach (ICD-10-PCS; principal; 2022-02-02 09:00)
DX: L72.0 Epidermal cyst (principal); Z88.6 Allergy status to analgesic agent; Z87.440 Personal history of urinary (tract) infections; Z20.822 Contact with and (suspected) exposure to COVID-19
CPT/HCPCS: 93005; 87070; 85025; 80048; 36415; 87205; 82947 ×2; 88304; 87075; 71046; 87811; 11000; J2704; J1815; J2250; J3010; J7030; J2405; J0690